=== PATIENT | male | born 1995 | race Caucasian/White ===

== ENCOUNTER → 2019-10-05 15:45 | Outpatient (BNVA) | payer MEDICAID, SELFPAY | PROVIDERS: Family Provider Internal Medicine; PCP Internal Medicine; Visit Provider Podiatrist Foot & Ankle Surgery | DX: S99.022A Salter-Harris Type II physeal fracture of left calcaneus, initial encounter for closed fracture (principal); X58.XXXA Exposure to other specified factors, initial encounter | CPT/HCPCS: 73630 ==

== ENCOUNTER 2019-10-05 16:05 | Outpatient (CLI) | payer MEDICAID, SELFPAY | END 2019-10-05 16:06 | disposition home or self-care (01) | LOC: SPT 16:05 | PROVIDERS: Family Provider Internal Medicine; PCP Internal Medicine; Visit Provider Podiatrist Foot & Ankle Surgery | DX: Z46.89 Encounter for fitting and adjustment of other specified devices (principal); S92.315D Nondisplaced fracture of first metatarsal bone, left foot, subsequent encounter for fracture with routine healing; X58.XXXD Exposure to other specified factors, subsequent encounter | CPT/HCPCS: 97760; L3031 ==

== ENCOUNTER → 2019-11-03 09:03 | Outpatient (BNVA) | payer MEDICAID, SELFPAY | PROVIDERS: Family Provider Internal Medicine; PCP Internal Medicine; Visit Provider Podiatrist Foot & Ankle Surgery | DX: S92.415D Nondisplaced fracture of proximal phalanx of left great toe, subsequent encounter for fracture with routine healing (principal); W22.01XD Walked into wall, subsequent encounter | CPT/HCPCS: 73630 ==

== ENCOUNTER 2020-02-05 12:52 | Emergency (ER) | payer MEDICAID, SELFPAY ==
[2020-02-05 12:52] VITALS: BP 95/61; PULSE 96; RESP 18; TEMP 35.8; O2SAT 88; BMI 16.7
[2020-02-05 13:04] VITALS: O2SAT 93
--- NOTE | 2020-02-05 13:14 | XRR_ITS ---
PROCEDURE INFORMATION: Exam: XR Chest, 1 View Exam date and time: 02/05/2020 1:16 PM Age: 24 years old Clinical indication: Other: Seizure; Additional info: Seziure TECHNIQUE: Imaging protocol: XR of the chest Views: 1 view. COMPARISON: CR Clavicle LEFT [id number] 02/14/2013 10:04 AM FINDINGS: Lungs: Unremarkable. No consolidation. Pleural space: Unremarkable. No pleural effusion. No pneumothorax. Heart/Mediastinum: Unremarkable. No cardiomegaly. Bones/joints: Unremarkable. Electronic stimulator is present left side extending into the cervical spine XR/XR chest 1V portable [id number] IMPRESSION: No acute findings. Left side electronic stimulator
--- NOTE | 2020-02-05 13:15 | ECG_ITS ---
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 Measurements Intervals [place] Rate: 77 P: 72 [place]: 143 QRS: 79 QRSD: 92 T: 260 QT: 380 QTc: 432 Interpretive Statements SINUS RHYTHM ST DEVIATION AND MODERATE T-WAVE ABNORMALITY, CONSIDER INFERIOR ISCHEMIA [-0.1+ mV T WAVE IN II/aVF] No previous ECG available for comparison Electronically Signed On 02-05-2020 19:14:23 CDT by Samira Marx M.D. [id number]
--- NOTE | 2020-02-05 13:15 | ED_ITS ---
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 Patient has frequent seizures and his last seizure was about 3 days ago according to his mother. After lunch today the patient was noticed to look pale and then had a seizure that appeared to be toonic. The patient has se veral different types of seizures including tonic, tonic-clonic. He has not been sick recently, no recent fevers, no sick contacts. Mother says this is typical for his seizures. Patient has developmental delay and is unable to give me much of the history, he is also postictal MD complaint: seizure Onset (ago): minute(s) Duration of episode: 30 -: second(s) Witnessed: Yes - by Bystander Trauma: No Seizure History: Yes Place: Outdoors Possible Precipitating Event: none Associated symptoms: Reports no associated symptoms Treatments prior to arrival: none Review of Systems General: Reports: ROS unobtainable due to medical condition [facility] ED PFSH: Medical History Diarrhea Hematuria Hypothyroidism Leukemia Mental disability Neurocognitive disorder Seizure disorder Physical Exam Const: COMMON NORMALS: no acute distress, average body habitus, patient oriented x3, no limitations, healthy appearing and well nourished GENERAL APPEARANCE: lethargic (Postictal) ORIENTATION/CONSCIOUSNESS: Yes lethargic (Postictal) HENMT: COMMON NORMALS: normocephalic, atraumatic and moist oral mucous membranes HEAD & SCALP: normocephalic and atraumatic Eye: COMMON NORMALS: Equal, round and reactive pupils present, EOMs intact bilaterally, conjunctivae normal and no scleral icterus CONJUNCTIVA: Yes conjunctivae normal PUPIL: Yes Equal, round and reactive pupils present Neck/C-Spine: COMMON NORMALS: no meningeal signs and no JVD Resp: COMMON NORMALS: normal respiratory effort, No retractions, No use of accessory muscles, clear to auscultation bilaterally and percussion normal AUSCULTATION: clear to auscultation bilaterally PERCUSSION: percussion normal Cardio: COMMON NORMALS: no JVD, regular rate, regular rhythm, S1 normal heart sound present, S2 normal heart sound present, No gallops present (Cardio), No clicks present (Cardio), No murmurs present (Cardio), No rub (Cardio) and Peripheral pulses 2+ throughout RATE: regular rate RHYTHM: regular rhythm HEART SOUNDS: S1 normal heart sound present and S2 normal heart sound present PERIPHERAL PULSES: Peripheral pulses 2+ throughout GI: COMMON NORMALS: Normal to inspection, nondistended, normoactive bowel sounds present, Soft to palpation, non-tender, No hepatosplenomegaly present, no masses and no bruits PALPATION: Yes Soft to palpation and Yes No hepatosplenomegaly present Extremity: COMMON NORMALS: normal to inspection, full ROM, capillary refill normal, no calf tenderness and no pedal edema Neuro: COMMON NORMALS: patient oriented x3 SENSORIUM/ORIENTATION: Yes lethargic (Postictal) MENINGEAL SIGNS: Yes no meningeal signs Skin: COMMON NORMALS: no rashes or lesions noted, no wounds, turgor normal, no jaundice, no petechiae and no mottling GENERAL SKIN EXAM: no rashes or lesions noted and turgor normal Course Reevaluation(s): Reevaluation #1: Discussed his lab and imaging findings with his mom, no acute findings. Mother would rather not would not catheterize him to obtain a urine sample but he has not given us a urine sample. She is comfortable taking him home. We will write a prescription for a few doses of oral potassium and he will follow-up with his primary care provider to have a repeat potassium done in a few days. Other than that she is to continue what she is doing for him, and she voiced understanding and is in agreement with the plan. Time: 14:55 Vital Signs: Vital signs: Vital Signs Temperature 96.5 F L 02/05/20 12:52 Pulse Rate 92 02/05/20 15:16 Respiratory Rate 12 02/05/20 15:16 Blood Pressure 98/59 02/05/20 15:16 Pulse Oximetry 90 02/05/20 15:16 MDM - Seizure MDM Narrative: Medical decision making narrative: 24-year-old gentleman with a history of seizure disorder who had a seizure today. He has frequent seizures and this is not uncommon for him. No sign no illness prior to or after the seizure. Evaluation in the emergency department was positive only for hypokalemia. He was given oral replacement for his hypokalemia and discharged home with the same. He is to follow-up with his primary care provider. Medical Records: Attestation: I reviewed the patient's medical records. Lab Data: Attestation: I reviewed the patient's lab results. Labs: Lab Results 02/05/20 02/05/20 Range/Units 13:05 13:05 WBC 12.4 H (4.0-10.0) 10^3/ uL RBC 4.06 L (4.1-5.3) 10^6/u L Hgb 13.1 (11.7-16.6) g/dL Hct 41.4 L (42.0-52.0) % MCV 102.0 H (80-94) fL MCH 32.3 (28.0-34.0) pg MCHC 31.6 (30.0-36.0) g/dL RDW 18.2 H (12.1-15.1) % Plt Count 469 H (130-400) 10^3/c mm MPV 8.7 (7.4-10.4) fL Neut % (Auto) 54.5 % Lymph % (Auto) 30.1 % [place] % (Auto) 9.8 % Eos % (Auto) 2.5 % Baso % (Auto) 0.6 % Neut # (Auto) 6.72 (1.8-7.7) 10^3/u L Lymph # (Auto) 3.7 (0.8-4.8) 10^3/u L [place] # (Auto) 1.2 H (0.2-0.9) 10^3/u L Eos # (Auto) 0.3 (0.0-0.8) 10^3/u L Baso # (Auto) 0.1 (0.0-0.1) 10^3/u L Nucleated RBC % (a uto) 0 % Nucleated RBCs # 0.0 /100WBC Sodium 141 (136-145) mmol/L Potassium 2.9 L (3.5-5.1) mmol/L Chloride 105 (98-107) mmol/L Carbon Dioxide 24 (22-29) mmol/L Anion Gap 14.9 (5-19) BUN 14 (6-20) mg/dL Creatinine 0.5 L (0.7-1.2) mg/dL GFR Calculation 202.6 H (90-130) mL/min Glucose 170 H (65-115) mg/dL Calculated Osmolal ity 296 H (285-295) mOsm/k g Calcium 8.8 (8.5-10.5) mg/dL Total Bilirubin 0.2 (0.15-1.2) mg/dL AST 10 (0-40) U/L ALT 11 (0-41) U/L Alkaline Phosphata se 52 (40-130) IU/L C-Reactive Protein 1.3 (0.0-4.9) mg/L Total Protein 4.9 L (6.6-8.7) g/dL Albumin 3.0 L (3.5-5.2) g/dL Globulin 1.9 (1.3-4.6) g/dL Imaging Data^: CXR: Attestation: I personally reviewed and interpreted this imaging study as follows: Radiologist's impression: [address] [address] XRay Report Signed Patient: Rm Baum #: [id number] : 1995Acct#:[id number] Age/Sex: 24 MADM Date: 02/05/20 Loc: [facility]/Bed: Attending Dr: Ordering Provider/Ordering MD: Tico Anderson MD, [facility] [place] Date of Service: 02/05/20 Procedure(s): XR chest 1V portable [id number] Accession Number(s): [id number] Report Number: [id number] PROCEDURE INFORMATION: Exam: XR Chest, 1 View Exam date and time: 02/05/2020 1:16 PM Age: 24 years old Clinical indication: Other: Seizure; Additional info: Seziure TECHNIQUE: Imaging protocol: XR of the chest Views: 1 view. COMPARISON: CR Clavicle LEFT [id number] 02/14/2013 10:04 AM FINDINGS: Lungs: Unremarkable. No consolidation. Pleural space: Unremarkable. No pleural effusion. No pneumothorax. Heart/Mediastinum: Unremarkable. No cardiomegaly. Bones/joints: Unremarkable. Electronic stimulator is present left side extending into the cervical spine XR/XR chest 1V portable [id number] IMPRESSION: No acute findings. Left side electronic stimulator Dictated By:Vahe Watts Signed By:Brennan Watts Date/Time:02/05/201447 DD/ 45 EKG Data^: EKG 1: Attestation: I personally reviewed and interpreted this EKG as follows: EKG interpretation date: 02/05/20 EKG interpretation time: 13:18 Prior EKG tracings: available for review Interpretation: Normal sinus rhythm. Heart rate [address] depression in V3 V4 V5 and downsloping of the ST segment in 2 3 aVF Discharge Plan Discharge Patient Disposition: Home Clinical Impression: Acute hypokalemia Epileptic seizure Qualifiers: Epilepsy type: other Intractability: not intractable Status epilepticus: without status epilepticus Qualified Code(s): G40.802 - Other epilepsy, not intractable, without status epilepticus Condition: Stable Prescriptions: New potassium chloride 40 mEq/15 mL liquid 20 meq PO DAILY 5 Days Qty: 40 RF: 0 Continued Banzel 400 mg tablet 1,200 mg PO BID RF: 0 divalproex [Depakote Sprinkles] 125 mg capsule, delayed rel sprinkle See Rx Instructions .ROUTE .COMPLEX RF: 0 diazepam 10 mg tablet 10 mg PO BID PRN (Reason: Anxiety) RF: 0 levothyroxine [Synthroid] 50 mcg tablet 50 mcg PO DAILY RF: 0 acetaminophen [Children's Tylenol] 160 mg/5 mL suspension 500 mg PO QID PRN (Reason: Pain) RF: 0 Discharge Orders: Discharge Order (Routine); Ordered 02/05/20 Ordered By: Tico Anderson Referrals: Jon Grider DO [Primary Care Provider] - 1-3 days Discharge Diet: Usual diet Discharge Activity: Increase activity as tolerated Patient Instructions: Hypokalemia (ED), Recurrent Seizures Adult (ED) Activity Restrictions/Additional Instructions: Return for any new or worsening symptoms. Follow-up with his primary care provider within 3 days. He will need to have his potassium levels checked again in a few days, so have his primary care provider check it. 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
[2020-02-05 13:21] LABS: Basophils # 0.1 10^3/uL (0.0-0.1); Basophils % 0.6 %; Eosinophils # 0.3 10^3/uL (0.0-0.8); Eosinophils % 2.5 %; Hematocrit 41.4 % (42.0-52.0); Hemoglobin 13.1 g/dL (11.7-16.6); Lymphocytes # 3.7 10^3/uL (0.8-4.8); Lymphocytes % 30.1 %; Mean Corpuscular HGB Conc 31.6 g/dL (30.0-36.0); Mean Corpuscular Hemoglobin 32.3 pg (28.0-34.0); Mean Platelet Volume 8.7 fL (7.4-10.4); Monocytes # 1.2 10^3/uL (0.2-0.9); Monocytes % 9.8 %; Neutrophils # 6.72 10^3/uL (1.8-7.7); Neutrophils % 54.5 %; Nucleated Red Blood Cells % 0 %; Platelet Count 469 10^3/cmm (130-400); Red Blood Count 4.06 10^6/uL (4.1-5.3); Red Cell Distribution Width 18.2 % (12.1-15.1); White Blood Count 12.4 10^3/uL (4.0-10.0)
[2020-02-05 13:27] VITALS: BP 100/61; PULSE 79; RESP 20; O2SAT 97
[2020-02-05 13:43] LABS: Alanine Aminotransferase 11 U/L (0-41); Alkaline Phosphatase 52 IU/L (40-130); Anion Gap 14.9 (5-19); Aspartate Amino Transferase 10 U/L (0-40); Blood Urea Nitrogen 14 mg/dL (6-20); C Reactive Protein 1.3 mg/L (0.0-4.9); Calcium 8.8 mg/dL (8.5-10.5); Carbon Dioxide 24 mmol/L (22-29); Chloride 105 mmol/L (98-107); Globulin 1.9 g/dL (1.3-4.6); Glomerular Filtration Rate 202.6 mL/min (90-130); Glucose 170 mg/dL (65-115); Osmolality Calculated 296 mOsm/kg (285-295); Sodium 141 mmol/L (136-145); Total Bilirubin 0.2 mg/dL (0.15-1.2); Total Protein 4.9 g/dL (6.6-8.7)
[2020-02-05 13:49] LABS: Potassium 2.9 mmol/L (3.5-5.1)
[2020-02-05] MEDS: potassium chloride oral liq 20 mEq/15 mL UDC 40 MEQ PO (13:59)
[2020-02-05] MEDS: ondansetron 2 mg/ML SDV 2 mL 4 MG IVP (14:06)
[2020-02-05 15:16] VITALS: BP 98/59; PULSE 92; RESP 12; O2SAT 90
== END 2020-02-05 15:18 | disposition home or self-care (01) ==
PROVIDERS: Emergency Provider Family Medicine; PCP Internal Medicine
DX: G40.802 Other epilepsy, not intractable, without status epilepticus (principal); E87.6 Hypokalemia; Z85.6 Personal history of leukemia
CPT/HCPCS: 12345; 71045; 80053; 85025; 86140; 93005; 96374; 96375; 99284; J2405

== ENCOUNTER 2020-05-01 14:22 | Outpatient (CLI) | payer MEDICAID, SELFPAY ==
[2020-05-01 15:10] LABS: Basophils # 0.1 10^3/uL (0.0-0.1); Eosinophils # 0.2 10^3/uL (0.0-0.8); Eosinophils % 3.8 %; Hematocrit 37.9 % (42.0-52.0); Hemoglobin 11.9 g/dL (11.7-16.6); Lymphocytes # 1.8 10^3/uL (0.8-4.8); Lymphocytes % 33.3 %; Mean Corpuscular HGB Conc 31.4 g/dL (30.0-36.0); Mean Corpuscular Hemoglobin 30.3 pg (28.0-34.0); Mean Corpuscular Volume 96.4 fL (80-94); Mean Platelet Volume 8.9 fL (7.4-10.4); Monocytes # 0.6 10^3/uL (0.2-0.9); Monocytes % 10.9 %; Neutrophils # 2.65 10^3/uL (1.8-7.7); Neutrophils % 50.4 %; Nucleated Red Blood Cells % 0 %; Platelet Count 368 10^3/cmm (130-400); Red Blood Count 3.93 10^6/uL (4.1-5.3); Red Cell Distribution Width 13.2 % (12.1-15.1); White Blood Count 5.3 10^3/uL (4.0-10.0)
== END 2020-05-01 14:23 | disposition home or self-care (01) ==
PROVIDERS: PCP Internal Medicine; Visit Provider Internal Medicine Hematology & Oncology
DX: D64.9 Anemia, unspecified (principal)
CPT/HCPCS: 36415; 85025

== ENCOUNTER 2020-05-02 05:53 | Outpatient (CLI) | payer MEDICAID, SELFPAY ==
--- NOTE | 2020-05-02 15:24 | ONC CON_ITS ---
Dr. Carrillo New Patient Note Patient: Rm Baum Unit #: [id number]: 1995 Dicatated By: Mckinley Carrillo M.D.Date of Visit: May 02, 2020 Onc MED New Patient/Consult Referring Physician: Dr. Jon Grider M.D. History of Present Illness: Mr. 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 History of recurrent urinary tract infection due to cystitis, history of iron deficiency anemia, took oral iron ferrous gluconate for couple of years till July 25, 2016,, history of hemorrhoids., History of hypothyroidism, history of delayed gastric emptying, EGD done on December 18, 2016 ,Lab work-up done in the D[facility] office on February 18, 2020 showed white blood count 6.2 hemoglobin 12.2 g normal being 13.2 to 17.1 g, hematocrit 37.4 platelets 408,000 serum protein electrophoresis shows hypogammaglobulinemia hemoglobin 0.7 normal being 0.8-1.7 urine protein electrophoresis was normal, Iron saturation 24%, iron 114, TIBC 481, ferritin 6, folate 20.3, B12 639, reticulocyte count 1.3%, T4 1.1, TSH 2.01. Patient is a poor historian and appears anxious also as per mother he had episode of seizure today, since then he is somewhat emotional. So all the history available was from his mother, she denies patient having blood in stool or hemoptysis or hematemesis or jaundice or hematuria or gum bleed. But complaining of weight loss since October 2019, as per mother patient had fever and generalized weakness, at that time COVID-19 was suspected, as patient was noncooperative for testing so it was not done rather placed in quarantine for 14 days, subsequently developed sore throat, strep throat was suspected but not tested treated with oral antibiotic empirically, since then patient has been losing some weight and thinning of hair but no recurrent infections, no night sweats, no recurrent fever, no peripheral lymphadenopathy, no abdominal fullness. Past Medical History: Mr. Baum's medical history consists of history of c-diff, history of leukemia, hypothyroidism, mental retardation, and siezure disorder. Past Surgical History: Mr. Baum'gael surgical history is unremarkable. Medications: Aloe Vera Juice 15 mL Liquid Oral daily, Banzel 3 Tablet (of 400 mg) Oral b.i.d., CBD oil (4.25 mL) Oil b.i.d., Cholecalciferol 1 Tablet (of 10 mcg ) Oral daily, Depakote Sprinkles Capsule Sprinkle Oral Take as Directed, Diastat Pediatric Gel (jelly) Rectal PRN, diazePAM 1 Tablet (of 10 mg) Oral PRN, Ferrous Gluconate 1 Tablet (of 239 (27 fe) mg) Oral daily, Levothyroxine Sodium 1 Tablet (of 50 mcg) Oral daily, patel de fallon 1 mL Liquid daily, Vitamin C 1 Capsule (of 500 mg) Oral daily Allergies: No Known Allergies. Social History: Mr. Baum is single. Mr. Baum has never smoked. He has no history of drinking. Family History: There is no documented family history. Review Of Symptoms: Review of Systems is not available for this patient. Vital Signs: Performed on May 02, 2020 14:24: 0, 15.50 (LOW), 1.61 sq.m, 70 in, 95 % (LOW), 103 /min (HIGH), 16 /min, 109/74 mm(hg), 97.4 F (LOW), and 108 lbs (HIGH). Performance Status: 3 - Capable of only limited self-care, confined to bed or chair more than 50% of waking hours. (ECOG) Physical Examination: ENMT - Denies mouth sores or jaundice, Respiratory - Denies shortness of breath or wheezing, Cardiovascular - Denies palpitation, Abdomen - Denies abdominal pain or fullness, Extremities - Visible trace edema. Lab/Imaging: Test performed on May 01, 2020 14:55 WBC 5.3 10 3/uL RBC 3.93 10 6/uL HGB 11.9 g/dL HCT 37.9 % MCV 96.4 fL MCH 30.3 pg MCHC 31.4 g/dL RDW 13.2 % Platelet Count 368 10 3/cmm MPV 8.9 fL Neutrophils 2.65 10 3/uL Lymphocytes 1.8 10 3/uL Monocytes 0.6 10 3/uL Eosinophils 0.2 10 3/uL Basophils 0.1 10 3/uL Neutrophil % 50.4 % Lymphocyte % 33.3 % Monocyte % 10.9 % Eosinophil % 3.8 % Basophils % 1.0 % NRBC % 0 % Impression: Iron deficiency anemia etiology, etiology unclear could be due to iron malabsorption or chronic blood loss, patient was treated with oral iron for couple of years ago July 2016 with resolution of anemia. History of chronic cystitis with hematuria Hypothyroidism Hypogonadism in the past treated with testosterone supplement History of hemorrhoids History of ALL, diagnosed in December 1995, treated at [facility] for 2-1/2 years including induction and maintenance therapy, now in remission History of gastric emptying Seizure disorder Mental retardation Plan: Discussed with patient's mother regarding his labs white blood count 5.3 hemoglobin 11.9 g normal being 11.7-16.60, hematocrit 37.9 platelets 368,000 with a normal differential Clinically, patient appears in no acute distress, alert but somewhat anxious. His lab work-up done in his PM[facility] office on April 19, 2020 showed ferritin was 6, normal being 38-380, TIBC 481, iron saturation 24%, iron 114, B12 629, folate 20.3 with a normal TSH, and his lab work-up is consistent with iron deficiency, as mentioned earlier patient has taken oral iron in the past without any problems so we will consider trial of oral iron once a day for 1 month and then repeat his CBC and iron studies if it shows improvement then continue to monitor otherwise may consider parenteral iron and also suggest EGD and colonoscopy to rule out GI source of blood loss and cystoscopy to rule out hemorrhagic cystitis. Return to clinic in 1 month with CBC and iron studies Signed By: Mckinley Carrillo M.D. <<Signature on File>>
== END 2020-05-02 05:54 | disposition home or self-care (01) ==
LOC: ONCMED 05:55
PROVIDERS: PCP Internal Medicine; Visit Provider Internal Medicine Hematology & Oncology
DX: D50.9 Iron deficiency anemia, unspecified (principal); C91.01 Acute lymphoblastic leukemia, in remission; N30.21 Other chronic cystitis with hematuria; E03.9 Hypothyroidism, unspecified; E29.1 Testicular hypofunction; F79 Unspecified intellectual disabilities; G40.909 Epilepsy, unspecified, not intractable, without status epilepticus
CPT/HCPCS: 99203; G0463

== ENCOUNTER 2020-07-16 13:28 | Outpatient (CLI) | payer MEDICARE, MEDICAID, SELFPAY ==
[2020-07-16 14:33] LABS: Basophils % 0.7 %; Eosinophils # 0.3 10^3/uL (0.0-0.8); Eosinophils % 5.4 %; Hematocrit 40.7 % (42.0-52.0); Hemoglobin 12.7 g/dL (11.7-16.6); Lymphocytes # 1.8 10^3/uL (0.8-4.8); Lymphocytes % 32.6 %; Mean Corpuscular HGB Conc 31.2 g/dL (30.0-36.0); Mean Corpuscular Hemoglobin 30.5 pg (28.0-34.0); Mean Corpuscular Volume 97.8 fL (80-94); Monocytes # 0.5 10^3/uL (0.2-0.9); Monocytes % 9.2 %; Neutrophils # 2.85 10^3/uL (1.8-7.7); Neutrophils % 51.2 %; Nucleated Red Blood Cells % 0 %; Platelet Count 311 10^3/cmm (130-400); Red Blood Count 4.16 10^6/uL (4.1-5.3); Red Cell Distribution Width 16.2 % (12.1-15.1); White Blood Count 5.6 10^3/uL (4.0-10.0)
[2020-07-16 14:51] LABS: Ferritin 28 ng/mL (30-400); Iron 99 ug/dL (59-158); Percent Saturation 23.9 % (20-50); Total Iron Binding Capacity 413 mcg/dl; Unsaturated Iron Binding 314 ug/dL (112-347)
== END 2020-07-16 13:29 | disposition home or self-care (01) ==
LOC: ONCMED 13:31
PROVIDERS: PCP Internal Medicine; Visit Provider Internal Medicine Hematology & Oncology
DX: D64.9 Anemia, unspecified (principal)
CPT/HCPCS: 36415; 82728; 83540; 83550; 85025

== ENCOUNTER 2020-07-17 05:48 | Outpatient (CLI) | payer MEDICARE, MEDICAID, SELFPAY ==
--- NOTE | 2020-07-17 15:33 | ONC FU_ITS ---
Dr. Carrillo follow up note Patient: Rm Baum Unit #: [id number]: 1995 Dicatated By: Mckinley Carrillo M.D.Date of Visit:Jul 17, 2020 Onc Med Follow-up/Prog Note History of Present Illness: Mr. 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 History of recurrent urinary tract infection due to cystitis, history of iron deficiency anemia, took oral iron ferrous gluconate for couple of years till July 25, 2016,, history of hemorrhoids., History of hypothyroidism, history of delayed gastric emptying, EGD done on December 18, 2016, Patient is a poor historian and appears anxious also as per mother he had episode of seizure today, since then he is somewhat emotional. So all the history available was from his mother, she denies patient having blood in stool or hemoptysis or hematemesis or jaundice or hematuria or gum bleed. But complaining of weight loss since October 2019, as per mother patient had fever and generalized weakness, at that time COVID-19 was suspected, as patient was noncooperative for testing so it was not done rather placed in quarantine for 14 days, subsequently developed sore throat, strep throat was suspected but not tested treated with oral antibiotic empirically, since then patient has been losing some weight and thinning of hair but no recurrent infections, no night sweats, no recurrent fever, no peripheral lymphadenopathy, no abdominal fullness. Came for follow-up, denies any specific complaints, no fever chills, no nausea or vomiting, no diarrhea constipation, no melena or hematochezia, tolerating oral iron well Medications: Aloe Vera Juice 15 mL Liquid Oral daily, Banzel 3 Tablet (of 400 mg) Oral b.i.d., CBD oil (4.25 mL) Oil b.i.d., Cholecalciferol 1 Tablet (of 10 mcg ) Oral daily, Depakote Sprinkles Capsule Sprinkle Oral Take as Directed, Diastat Pediatric Gel (jelly) Rectal PRN, diazePAM 1 Tablet (of 10 mg) Oral PRN, Ferrous Gluconate 1 Tablet (of 239 (27 fe) mg) Oral daily, Levothyroxine Sodium 1 Tablet (of 50 mcg) Oral daily, patel de fallon 1 mL Liquid daily, Vitamin C 1 Capsule (of 500 mg) Oral daily Allergies: No Known Allergies. Review of Systems: Review of Systems is not available for this patient. Vital Signs: Performed on Jul 17, 2020 14:11 Height - 70.00 in Weight - 110.6 lbs (HIGH) BSA - 1.62 sq.m BMI - 15.87 (LOW) Temperature - 97.3 F (LOW) Pulse - 81 /min Respiration - 18 /min BP - 119/71 mm(hg) O2 Sat - 95 % (LOW) Pain - 0 Fatigue - 0 Performance Status: 0 - Fully active, able to carry on all predisease activities without restrictions. (ECOG) Physical Examination: ENMT - No mouth sores, no thrush, no jaundice, Respiratory - Lungs are clear to auscultation, Cardiovascular - Regular rate and rhythm of heart, Abdomen - Soft, bowel sounds present, Extremities - No visible edema. Lab/Imaging: Test performed on May 01, 2020 14:55 WBC 5.3 10 3/uL RBC 3.93 10 6/uL HGB 11.9 g/dL HCT 37.9 % MCV 96.4 fL MCH 30.3 pg MCHC 31.4 g/dL RDW 13.2 % Platelet Count 368 10 3/cmm MPV 8.9 fL Neutrophils 2.65 10 3/uL Lymphocytes 1.8 10 3/uL Monocytes 0.6 10 3/uL Eosinophils 0.2 10 3/uL Basophils 0.1 10 3/uL Neutrophil % 50.4 % Lymphocyte % 33.3 % Monocyte % 10.9 % Eosinophil % 3.8 % Basophils % 1.0 % NRBC % 0 % Impression: Iron deficiency anemia etiology, etiology unclear could be due to iron malabsorption or chronic blood loss, patient was treated with oral iron for couple of years ago July 2016 with resolution of anemia. History of chronic cystitis with hematuria Hypothyroidism Hypogonadism in the past treated with testosterone supplement History of hemorrhoids History of ALL, diagnosed in December 1995, treated at [facility] for 2-1/2 years including induction and maintenance therapy, now in remission History of gastric emptying Seizure disorder Mental retardation Plan: Discussed with patient and his mother regarding his labs white blood count 5.6 hemoglobin 12.7 g compared to 11.9 g on May 01, 2020 hematocrit 40.7 platelets 311,000 iron saturation 23.9 ferritin 28 iron 99 TIBC 413 Clinically, patient doing well, his follow-up CBC shows hemoglobin is improving and now in normal range, iron studies shows iron stores within normal range but on the lower side, patient is tolerating oral iron well. We will continue with same and return to clinic in 2 months with CBC and iron studies Signed By: Mckinley Carrillo M.D. <<Signature on File>>
== END 2020-07-17 05:49 | disposition home or self-care (01) ==
LOC: ONCMED 05:50
PROVIDERS: PCP Internal Medicine; Visit Provider Internal Medicine Hematology & Oncology
DX: D50.9 Iron deficiency anemia, unspecified (principal); N30.21 Other chronic cystitis with hematuria; E03.9 Hypothyroidism, unspecified; E29.1 Testicular hypofunction; F79 Unspecified intellectual disabilities; Z85.6 Personal history of leukemia
CPT/HCPCS: 99214

== ENCOUNTER 2020-07-26 12:30 | Outpatient (RCR) | payer MEDICARE, MEDICAID, SELFPAY | END 2020-08-08 23:59 | disposition home or self-care (01) | LOC: SPT 12:30 | PROVIDERS: PCP Internal Medicine; Referring Provider Internal Medicine; Visit Provider Internal Medicine | DX: R26.89 Other abnormalities of gait and mobility (principal) | CPT/HCPCS: 97162 ==

== ENCOUNTER 2020-08-09 06:00 | Outpatient (RCR) | payer MEDICARE, MEDICAID, SELFPAY | END 2020-09-07 23:59 | disposition home or self-care (01) | LOC: SPT 06:00 | PROVIDERS: PCP Internal Medicine; Referring Provider Internal Medicine; Visit Provider Internal Medicine | DX: R26.89 Other abnormalities of gait and mobility (principal) | CPT/HCPCS: 97110 ==

== ENCOUNTER 2020-09-08 06:00 | Outpatient (RCR) | payer MEDICARE, MEDICAID, SELFPAY | END 2020-10-08 23:59 | disposition home or self-care (01) | LOC: SPT 06:00 | PROVIDERS: PCP Internal Medicine; Referring Provider Internal Medicine; Visit Provider Internal Medicine | DX: R26.89 Other abnormalities of gait and mobility (principal) | CPT/HCPCS: 97110 ==

== ENCOUNTER 2020-09-24 13:25 | Outpatient (CLI) | payer MEDICARE, MEDICAID, SELFPAY ==
[2020-09-24 14:09] LABS: Basophils # 0.1 10^3/uL (0.0-0.1); Basophils % 0.8 %; Eosinophils # 0.2 10^3/uL (0.0-0.8); Eosinophils % 3.5 %; Hemoglobin 12.9 g/dL (11.7-16.6); Lymphocytes # 1.8 10^3/uL (0.8-4.8); Lymphocytes % 30.4 %; Mean Corpuscular HGB Conc 31.5 g/dL (30.0-36.0); Mean Corpuscular Hemoglobin 31.8 pg (28.0-34.0); Mean Platelet Volume 8.9 fL (7.4-10.4); Monocytes # 0.6 10^3/uL (0.2-0.9); Monocytes % 9.8 %; Neutrophils # 3.17 10^3/uL (1.8-7.7); Neutrophils % 53.6 %; Nucleated Red Blood Cells % 0 %; Platelet Count 307 10^3/cmm (130-400); Red Blood Count 4.06 10^6/uL (4.1-5.3); Red Cell Distribution Width 13.4 % (12.1-15.1); White Blood Count 5.9 10^3/uL (4.0-10.0)
[2020-09-24 14:23] LABS: Ferritin 32 ng/mL (30-400); Iron 109 ug/dL (59-158); Percent Saturation 27.1 % (20-50); Total Iron Binding Capacity 401 mcg/dl; Unsaturated Iron Binding 292 ug/dL (112-347)
[2020-09-24 15:11] LABS: Folate Level 19.1 ng/mL (4.5-32.2)
== END 2020-09-24 13:26 | disposition home or self-care (01) ==
PROVIDERS: PCP Internal Medicine; Visit Provider Internal Medicine Hematology & Oncology
DX: D50.9 Iron deficiency anemia, unspecified (principal)
CPT/HCPCS: 82728; 82746; 83540; 83550; 85025

== ENCOUNTER 2020-09-25 05:55 | Outpatient (CLI) | payer MEDICARE, MEDICAID, SELFPAY ==
--- NOTE | 2020-09-25 15:46 | ONC FU_ITS ---
Dr. Carrillo follow up note Patient: Rm Baum Unit #: [id number]: 1995 Dicatated By: Mckinley Carrillo M.D.Date of Visit:September 25, 2020 Onc Med Follow-up/Prog Note History of Present Illness: Mr. 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 History of recurrent urinary tract infection due to cystitis, history of iron deficiency anemia, took oral iron ferrous gluconate for couple of years till July 25, 2016,, history of hemorrhoids., History of hypothyroidism, history of delayed gastric emptying, EGD done on December 18, 2016, Patient is a poor historian and appears anxious also as per mother he had episode of seizure today, since then he is somewhat emotional. So all the history available was from his mother, she denies patient having blood in stool or hemoptysis or hematemesis or jaundice or hematuria or gum bleed. But complaining of weight loss since October 2019, as per mother patient had fever and generalized weakness, at that time COVID-19 was suspected, as patient was noncooperative for testing so it was not done rather placed in quarantine for 14 days, subsequently developed sore throat, strep throat was suspected but not tested treated with oral antibiotic empirically, since then patient has been losing some weight and thinning of hair but no recurrent infections, no night sweats, no recurrent fever, no peripheral lymphadenopathy, no abdominal fullness. Came for follow-up, denies any specific complaints, no fever chills, no nausea or vomiting, no diarrhea or constipation, no melena or hematochezia, tolerating oral iron well but off and on noncompliant, Medications: Aloe Vera Juice 15 mL Liquid Oral daily, Banzel 3 Tablet (of 400 mg) Oral b.i.d., CBD oil (4.25 mL) Oil b.i.d., Cholecalciferol 1 Tablet (of 10 mcg ) Oral daily, Depakote Sprinkles Capsule Sprinkle Oral Take as Directed, Diastat Pediatric Gel (jelly) Rectal PRN, diazePAM 1 Tablet (of 10 mg) Oral PRN, Ferrous Gluconate 1 Tablet (of 239 (27 fe) mg) Oral daily, Levothyroxine Sodium 1 Tablet (of 50 mcg) Oral daily, patel de fallon 1 mL Liquid daily, Vitamin C 1 Capsule (of 500 mg) Oral daily Allergies: No Known Allergies. Review of Systems: Review of Systems is not available for this patient. Vital Signs: Performed on September 25, 2020 14:08 Height - 70.00 in Weight - 113.0 lbs (HIGH) BSA - 1.64 sq.m BMI - 16.21 (LOW) Temperature - 97.0 F (LOW) Pulse - 93 /min Respiration - 18 /min BP - 104/67 mm(hg) O2 Sat - 98 % Pain - 0 Performance Status: 0 - Fully active, able to carry on all predisease activities without restrictions. (ECOG) Physical Examination: ENMT - No mouth sores, no thrush, no jaundice, Respiratory - Lungs are clear to auscultation, Cardiovascular - Regular rate and rhythm of heart, Abdomen - Soft, bowel sounds present, Extremities - No visible edema. Lab/Imaging: Test performed on May 01, 2020 14:55 WBC 5.3 10 3/uL RBC 3.93 10 6/uL HGB 11.9 g/dL HCT 37.9 % MCV 96.4 fL MCH 30.3 pg MCHC 31.4 g/dL RDW 13.2 % Platelet Count 368 10 3/cmm MPV 8.9 fL Neutrophils 2.65 10 3/uL Lymphocytes 1.8 10 3/uL Monocytes 0.6 10 3/uL Eosinophils 0.2 10 3/uL Basophils 0.1 10 3/uL Neutrophil % 50.4 % Lymphocyte % 33.3 % Monocyte % 10.9 % Eosinophil % 3.8 % Basophils % 1.0 % NRBC % 0 % Impression: Iron deficiency anemia etiology, etiology unclear could be due to iron malabsorption or chronic blood loss, patient was treated with oral iron for couple of years ago July 2016 with resolution of anemia. History of chronic cystitis with hematuria Hypothyroidism Hypogonadism in the past treated with testosterone supplement History of hemorrhoids History of ALL, diagnosed in December 1995, treated at [facility] for 2-1/2 years including induction and maintenance therapy, now in remission History of gastric emptying Seizure disorder Mental retardation Plan: Discussed with patient regarding his labs white blood count 5.9 hemoglobin 12.9 hematocrit 41 platelets 307,000 MCV 101 iron saturation 27.1% ferritin 32 compared to 28 previously iron 109, TIBC 401 Clinically, patient doing well with no new signs symptoms, tolerating oral iron well, follow-up lab work-up shows CBC within normal range, iron studies stable and within normal range but on the lower side, patient and his mother was advised to be compliant and continue take oral iron and return to clinic in 3 months with CBC and iron studies Signed By: Mckinley Carrillo M.D. <<Signature on File>>
== END 2020-09-25 05:56 | disposition home or self-care (01) ==
LOC: ONCMED 05:57
PROVIDERS: PCP Internal Medicine; Visit Provider Internal Medicine Hematology & Oncology
DX: D50.0 Iron deficiency anemia secondary to blood loss (chronic) (principal); K90.9 Intestinal malabsorption, unspecified; E03.9 Hypothyroidism, unspecified; E29.1 Testicular hypofunction; K64.9 Unspecified hemorrhoids; N30.21 Other chronic cystitis with hematuria; G40.909 Epilepsy, unspecified, not intractable, without status epilepticus; F79 Unspecified intellectual disabilities; Z85.72 Personal history of non-Hodgkin lymphomas; Z79.899 Other long term (current) drug therapy
CPT/HCPCS: 99214

== ENCOUNTER 2020-10-09 06:00 | Outpatient (RCR) | payer MEDICARE, MEDICAID, SELFPAY | END 2020-11-07 23:59 | disposition home or self-care (01) | LOC: SPT 06:00 | PROVIDERS: PCP Internal Medicine; Referring Provider Internal Medicine; Visit Provider Internal Medicine | DX: R26.89 Other abnormalities of gait and mobility (principal) | CPT/HCPCS: 97110 ==

== ENCOUNTER 2020-11-08 06:00 | Outpatient (RCR) | payer MEDICARE, MEDICAID, SELFPAY | END 2020-12-08 23:59 | disposition home or self-care (01) | LOC: SPT 06:00 | PROVIDERS: PCP Internal Medicine; Referring Provider Internal Medicine; Visit Provider Internal Medicine | DX: R26.89 Other abnormalities of gait and mobility (principal) | CPT/HCPCS: 97110 ==

== ENCOUNTER 2020-12-09 06:00 | Outpatient (RCR) | payer MEDICARE, MEDICAID, SELFPAY | END 2021-01-08 23:59 | disposition home or self-care (01) | LOC: SPT 06:00 | PROVIDERS: PCP Internal Medicine; Referring Provider Internal Medicine; Visit Provider Internal Medicine | DX: R26.89 Other abnormalities of gait and mobility (principal) | CPT/HCPCS: 97110 ==

== ENCOUNTER 2020-12-31 14:43 | Outpatient (CLI) | payer MEDICARE, MEDICAID, SELFPAY ==
[2020-12-31 15:46] LABS: Basophils % 0.4 %; Eosinophils # 0.2 10^3/uL (0.0-0.8); Eosinophils % 2.4 %; Hemoglobin 13.5 g/dL (11.7-16.6); Lymphocytes # 1.8 10^3/uL (0.8-4.8); Lymphocytes % 27.3 %; Mean Corpuscular HGB Conc 32.1 g/dL (30.0-36.0); Mean Corpuscular Hemoglobin 32.5 pg (28.0-34.0); Mean Corpuscular Volume 101.2 fl (80-94); Mean Platelet Volume 8.6 fL (7.4-10.4); Monocytes # 0.6 10^3/uL (0.2-0.9); Monocytes % 8.3 %; Neutrophils % 59.4 %; Nucleated Red Blood Cells % 0 %; Platelet Count 376 10^3/cmm (130-400); Red Blood Count 4.15 10^6/uL (4.1-5.3); Red Cell Distribution Width 13.3 % (12.1-15.1); White Blood Count 6.7 10^3/uL (4.0-10.0)
[2020-12-31 16:02] LABS: Ferritin 34 ng/mL (30-400); Iron 96 ug/dL (59-158); Percent Saturation 22.7 % (20-50); Total Iron Binding Capacity 422 mcg/dl; Unsaturated Iron Binding 326 ug/dL (112-347)
[2020-12-31 16:11] LABS: Thyroid Stimulating Hormone 3.13 uIU/mL (0.27-4.20)
[2021-01-02 06:03] LABS: T3 Total 115 ng/dL (76-181)
== END 2020-12-31 14:44 | disposition home or self-care (01) ==
PROVIDERS: PCP Internal Medicine; Visit Provider Internal Medicine Hematology & Oncology
DX: C91.01 Acute lymphoblastic leukemia, in remission (principal); Z79.899 Other long term (current) drug therapy; Z79.890 Hormone replacement therapy
CPT/HCPCS: 36415; 82728; 83540; 83550; 84443; 84480; 85025

== ENCOUNTER 2021-01-03 05:45 | Outpatient (CLI) | payer MEDICARE, MEDICAID, SELFPAY ==
--- NOTE | 2021-01-06 19:27 | ONC FU_ITS ---
Dr. Carrillo follow up note Patient: Rm Baum Unit #: [id number]: 1995 Dicatated By: Mckinley Carrillo M.D.Date of Visit:Jan 03, 2021 Onc Med Follow-up/Prog Note History of Present Illness: Mr. 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 History of recurrent urinary tract infection due to cystitis, history of iron deficiency anemia, took oral iron ferrous gluconate for couple of years till July 25, 2016,, history of hemorrhoids., History of hypothyroidism, history of delayed gastric emptying, EGD done on December 18, 2016, Patient is a poor historian and appears anxious also as per mother he had episode of seizure today, since then he is somewhat emotional. So all the history available was from his mother, she denies patient having blood in stool or hemoptysis or hematemesis or jaundice or hematuria or gum bleed. But complaining of weight loss since October 2019, as per mother patient had fever and generalized weakness, at that time COVID-19 was suspected, as patient was noncooperative for testing so it was not done rather placed in quarantine for 14 days, subsequently developed sore throat, strep throat was suspected but not tested treated with oral antibiotic empirically, since then patient has been losing some weight and thinning of hair but no recurrent infections, no night sweats, no recurrent fever, no peripheral lymphadenopathy, no abdominal fullness. Came for follow-up, denies any specific complaints, no fever chills, no nausea or vomiting, no diarrhea or constipation, no hemoptysis or hematemesis, patient is on oral iron, tolerating well, as per mother in the distant past GI evaluation was recommended for iron deficiency anemia at that time he underwent EGD but colonoscopy was not done because of issues with preparation in mentally challenged young man Medications: Aloe Vera Juice 15 mL Liquid Oral daily, Banzel 3 Tablet (of 400 mg) Oral b.i.d., CBD oil (4.25 mL) Oil b.i.d., Cholecalciferol 1 Tablet (of 10 mcg ) Oral daily, Depakote Sprinkles Capsule Sprinkle Oral Take as Directed, Diastat Pediatric Gel (jelly) Rectal PRN, diazePAM 1 Tablet (of 10 mg) Oral PRN, Ferrous Gluconate 1 Tablet (of 239 (27 fe) mg) Oral daily, Levothyroxine Sodium 1 Tablet (of 50 mcg) Oral daily, patel de fallon 1 mL Liquid daily, Vitamin C 1 Capsule (of 500 mg) Oral daily Allergies: No Known Allergies. Review of Systems: Review of Systems is not available for this patient. Vital Signs: Performed on Jan 03, 2021 14:25 Height - 70.00 in Weight - 115 lbs (HIGH) BSA - 1.65 sq.m BMI - 16.50 (LOW) Temperature - 97.0 F (LOW) Pulse - 98 /min Respiration - 18 /min BP - 104/71 mm(hg) O2 Sat - 98 % Pain - 0 Fatigue - 0 Performance Status: 0 - Fully active, able to carry on all predisease activities without restrictions. (ECOG) Physical Examination: ENMT - No mouth sores, no thrush, no jaundice, Respiratory - Lungs are clear to auscultation, Cardiovascular - Regular rate and rhythm of heart, Abdomen - Soft, bowel sounds present, Extremities - No visible edema. Lab/Imaging: Most recent lab results are not available for this patient. Impression: Iron deficiency anemia etiology, etiology unclear could be due to iron malabsorption or chronic blood loss, patient was treated with oral iron for couple of years ago July 2016 with resolution of anemia. History of chronic cystitis with hematuria Hypothyroidism Hypogonadism in the past treated with testosterone supplement History of hemorrhoids History of ALL, diagnosed in December 1995, treated at [facility] for 2-1/2 years including induction and maintenance therapy, now in remission History of gastric emptying Seizure disorder Mental retardation Plan: Discussed with patient and his mother regarding his labs white blood count 6.7 hemoglobin 13.5 hematocrit 42 platelets 376,000 with a normal differential iron studies shows iron saturation 22.7% ferritin 34 iron 96 TIBC 422 Clinically, patient doing well with no new signs symptoms, at this point, will hold his oral iron for 1 month and he will return to clinic in a month with CBC and iron studies if it shows drop in his hemoglobin or iron stores, will consider GI work-up to rule out chronic blood loss from GI tract due to possible GI pathology Return to clinic in 1 month with CBC and iron studies Signed By: Mckinley Carrillo M.D. <<Signature on File>>
== END 2021-01-03 05:46 | disposition home or self-care (01) ==
LOC: ONCMED 05:46
PROVIDERS: PCP Internal Medicine; Visit Provider Internal Medicine Hematology & Oncology
DX: C91.01 Acute lymphoblastic leukemia, in remission (principal); D50.9 Iron deficiency anemia, unspecified; F79 Unspecified intellectual disabilities; Z79.899 Other long term (current) drug therapy; Z79.890 Hormone replacement therapy
CPT/HCPCS: 99214

== ENCOUNTER 2021-01-09 06:00 | Outpatient (RCR) | payer MEDICARE, MEDICAID, SELFPAY | END 2021-02-07 23:59 | disposition home or self-care (01) | LOC: SPT 06:00 | PROVIDERS: PCP Internal Medicine; Referring Provider Internal Medicine; Visit Provider Internal Medicine | DX: R26.89 Other abnormalities of gait and mobility (principal) | CPT/HCPCS: 97110 ==

== ENCOUNTER 2021-01-11 00:31 | Emergency (ER) | payer MEDICARE, MEDICAID, SELFPAY ==
[2021-01-11 00:43] VITALS: BP 109/74; PULSE 96; RESP 16; TEMP 36.4; O2SAT 92; BMI 16.5
--- NOTE | 2021-01-11 01:07 | W.ED.GENADLT ---
HPI - General Adult General: Chief complaint: Nausea/Vomiting/Diarrhea Stated complaint: n/v Time Seen by Provider: 01/11/21 00:35 History of Present Illness: HPI narrative: Patient is a 25-year-old male who comes to the ED with nausea and vomiting. Patient has a past medical history of acute lymphoblastic leukemia back in 1995, recurrent UTIs, hypothyroidism and iron deficiency anemia. Mother is present with patient and is providing history due to patient's baseline limited verbal ability and mental disability. She states that 2 days ago patient had outpatient surgery to replace the battery on vagus nerve stimulator. Patient was given first dose of clindamycin this morning and at around 5 PM this evening patient started having emesis. He then had multiple episodes of emesis throughout the evening. Was unable to keep any p.o. food or fluids down. She called the specialist they see in [place], [place] and who placed the vagus nerve stimulator and they thought patient might be reacting to clindamycin and to not give any more doses. Reports having a dry cough that started after multiple episodes of emesis today. Denies any fever, wheezing, shortness of breath, lip or tongue swelling, abdominal pain, bladder or bowel symptoms. Associated symptoms: Reports nausea and vomiting; Deny chest pain, dyspnea, headache(s), rash or palpitations Review of Systems Const: Denies: fever(s), chills or fatigue Eyes: Denies: change in vision or eye discomfort ENMT: Denies: throat pain, odynophagia, nasal discharge or nasal congestion Card: Denies: chest pain, palpitations, edema, swelling of feet/ankles, dyspnea on exertion or orthopnea Resp: Reports: non-productive cough; Denies: dyspnea or productive cough GI: Reports: nausea and vomiting; Denies: abdominal pain, diarrhea, constipation or hematochezia : Denies: flank pain, difficulty urinating, dysuria or hematuria Musc: Denies: neck pain, back pain or extremity swelling Skin/Breast: Denies: rash or new lesions Neuro: Denies: headache(s), numbness in extremities or weakness in extremities PFS ED PFSH: Medical History Diarrhea Hematuria Hypothyroidism Leukemia Mental disability Neurocognitive disorder Seizure disorder Physical Exam Const: COMMON NORMALS: no acute distress and alert EXAM LIMITATIONS: other limitations ( limited verbal ability and mental disability. ) GENERAL APPEARANCE: cooperative and comfortable HENMT: COMMON NORMALS: normocephalic HEAD & SCALP: normocephalic MOUTH: Normal oral and palatal mucosa present THROAT: posterior oropharynx normal and uvula midline Neck/C-Spine: COMMON NORMALS: supple GENERAL: Yes normal visual inspection Resp: COMMON NORMALS: normal respiratory effort, No retractions, No use of accessory muscles and clear to auscultation bilaterally AUSCULTATION: clear to auscultation bilaterally Cardio: COMMON NORMALS: regular rate, regular rhythm, S1 normal heart sound present, S2 normal heart sound present, No gallops present (Cardio), No clicks present (Cardio), No murmurs present (Cardio) and Peripheral pulses 2+ throughout RATE: regular rate RHYTHM: regular rhythm HEART SOUNDS: S1 normal heart sound present and S2 normal heart sound present PERIPHERAL PULSES: Peripheral pulses 2+ throughout GI: COMMON NORMALS: Normal to inspection, nondistended, normoactive bowel sounds present, Soft to palpation, non-tender and no masses PALPATION: Yes Soft to palpation : COMMON NORMALS: Yes no CVA tenderness BLADDER/KIDNEY EXAM: Yes no CVA tenderness Back/Pelvis: COMMON NORMALS: no CVA tenderness Extremity: COMMON NORMALS: normal to inspection Neuro: SENSORIUM/ORIENTATION: Yes alert Skin: GENERAL SKIN EXAM: dry skin Course Reevaluation(s): Reevaluation #1: After patient received IV fluids and Reglan his symptoms improved. He has not had any episodes of emesis while here in the ED and is tolerating p.o. fluids well. He is also more alert and active. Mother is says patient appears to be doing better and is comfortable to be discharged home and will follow up with PCP in 3 to 5 days for reevaluation. Time: 02:53 Vital Signs: Vital signs: Vital Signs Temperature 97.6 F 01/11/21 00:43 Pulse Rate 96 01/11/21 00:43 Respiratory Rate 16 01/11/21 00:43 Blood Pressure 109/74 01/11/21 00:43 Pulse Oximetry 92 01/11/21 00:43 MDM - General Adult MDM Narrative: Medical decision making narrative: Patient is a 25-year-old male comes to the ED with acute onset of nausea and vomiting. Patient has minimal verbal skills and has some mental disability and mother provided history. patient took first dose of clindamycin today. Mother contact the prescribing physician and they wanted patient to stop taking the clindamycin thanks he is potentially having a adverse reaction to medication. Here in the ED patient is lying comfortably on exam bed appears to be in no acute distress or pain. Vitals are stable. He has had no vomiting upon arrival to the ED. Lungs clear to auscultation bilaterally and patient has no abdominal tenderness upon light and deep palpation. CBC and CMP were unremarkable. Lipase was elevated at 162. Chest x-ray shows no acute findings. Patient was given IV fluids, Benadryl, Solu-Medrol and Reglan. Upon reevaluation he was more alert and active and he is tolerating p.o. fluids well. He has had no episodes of emesis. Mother was told to stop the clindamycin and to contact the prescribing doctor tomorrow morning to see if they want to put patient on a different antibiotic. Patient diagnosed with adverse drug reaction to clindamycin and elevated lipase enzymes. Mother told to follow-up with medical provider in 3 to 5 days for reevaluation and to have lipase rechecked. Return to ED precautions given. Patient's mother understood and agreed with plan. Lab Data: Attestation: I reviewed the patient's lab results. Labs: Lab Results 01/11/21 01/11/21 01/11/21 Range/Units 01:07 01:22 01:55 WBC 8.5 (4.0-10.0) 10^3/ uL RBC 4.02 L (4.1-5.3) 10^6/u L Hgb 12.9 (11.7-16.6) g/dL Hct 42.4 (42.0-52.0) % MCV 105.5 H (80-94) fl MCH 32.1 (28.0-34.0) pg MCHC 30.4 (30.0-36.0) g/dL RDW 13.0 (12.1-15.1) % Plt Count 343 (130-400) 10^3/c mm MPV 8.6 (7.4-10.4) fL Neut % (Auto) 81.8 % Lymph % (Auto) 9.1 % Sumner % (Auto) 6.5 % Eos % (Auto) 0.0 % Baso % (Auto) 0.5 % Neut # (Auto) 6.91 (1.8-7.7) 10^3/u L Lymph # (Auto) 0.8 (0.8-4.8) 10^3/u L Sumner # (Auto) 0.6 (0.2-0.9) 10^3/u L Eos # (Auto) 0.0 (0.0-0.8) 10^3/u L Baso # (Auto) 0.0 (0.0-0.1) 10^3/u L Nucleated RBC % (a uto) 0 % Nucleated RBCs # 0.0 /100WBC Sodium Cancelled Cancelled Potassium Cancelled Cancelled Chloride Cancelled Cancelled Carbon Dioxide Cancelled Cancelled Anion Gap Cancelled Cancelled BUN Cancelled Cancelled Creatinine Cancelled Cancelled GFR Calculation Cancelled Cancelled Glucose Cancelled Cancelled Calculated Osmolal ity Cancelled Cancelled Calcium Cancelled Cancelled Total Bilirubin Cancelled Cancelled AST Cancelled Cancelled ALT Cancelled Cancelled Alkaline Phosphata se Cancelled Cancelled Total Protein Cancelled Cancelled Albumin Cancelled Cancelled Globulin Cancelled Cancelled Lipase Cancelled Cancelled 01/11/21 Range/Units 02:20 WBC (4.0-10.0) 10^3/ uL RBC (4.1-5.3) 10^6/u L Hgb (11.7-16.6) g/dL Hct (42.0-52.0) % MCV (80-94) fl MCH (28.0-34.0) pg MCHC (30.0-36.0) g/dL RDW (12.1-15.1) % Plt Count (130-400) 10^3/c mm MPV (7.4-10.4) fL Neut % (Auto) % Lymph % (Auto) % Sumner % (Auto) % Eos % (Auto) % Baso % (Auto) % Neut # (Auto) (1.8-7.7) 10^3/u L Lymph # (Auto) (0.8-4.8) 10^3/u L Sumner # (Auto) (0.2-0.9) 10^3/u L Eos # (Auto) (0.0-0.8) 10^3/u L Baso # (Auto) (0.0-0.1) 10^3/u L Nucleated RBC % (a uto) % Nucleated RBCs # /100WBC Sodium 139 Potassium 4.1 Chloride 99 Carbon Dioxide 28 Anion Gap 16.1 BUN 9 Creatinine 0.3 L GFR Calculation 362.4 H Glucose 131 H Calculated Osmolal ity 288 Calcium 9.4 Total Bilirubin 0.2 AST 17 ALT 51 H Alkaline Phosphata se 110 Total Protein 6.4 L Albumin 3.8 Globulin 2.6 Lipase 162 H Imaging Data^: CXR: Attestation: I personally reviewed and interpreted this imaging study as follows: My impression: Chest x-ray showed no acute findings. Discharge Plan Discharge Patient Disposition: Home Clinical Impression: Adverse reaction to antibiotic, Elevated lipase Condition: Stable Prescriptions: New promethazine 6.25 mg/5 mL syrup 25 mg PO TID PRN (Reason: nausea and vomiting) Qty: 473 RF: 0 No Action Banzel 400 mg tablet 1,200 mg PO BID RF: 0 divalproex [Depakote Sprinkles] 125 mg capsule, delayed rel sprinkle See Rx Instructions .ROUTE .COMPLEX RF: 0 diazepam 10 mg tablet 10 mg PO BID PRN (Reason: Anxiety) RF: 0 levothyroxine [Synthroid] 50 mcg tablet 50 mcg PO DAILY RF: 0 acetaminophen [Children's Tylenol] 160 mg/5 mL suspension 500 mg PO QID PRN (Reason: Pain) RF: 0 Discharge Orders: Discharge ED (Routine); Ordered 01/11/21 Ordered By: Gilbert Pretty Referrals: Jon Grider, [Primary Care Provider] - Discharge Diet: Advance as tolerated and Clear Liquid Discharge Activity: Resume usual activity Patient Instructions: Adverse Drug Reaction (ED) Activity Restrictions/Additional Instructions: Follow-up with PCP in approximately 3 to 5 days for reevaluation and to have a lipase lab rechecked. Stop the clindamycin medication. Contact the prescribing doctor tomorrow morning to let them know if they would like patient on any other antibiotic at this time. Continue a clear liquid diet for the next 12 hours then advance as tolerated. Take medications as prescribed. return to the ER or your medical provider if condition worsens. Please read and understand discharge instructions. Thank you for choosing [facility] for your healthcare needs today. Please realize this is an emergency room and that we are providing you with a medical screening exam and this may not be complete and all inclusive of all the testing and or work up that you may need to determine your ailment or severity of your illness. It is very important that you follow up as instructed or that you return to the Emergency Department should you have concerns or if your condition changes or worsens in any way. Coding Level of Care Code ED Bilingual Speech Language Pathologist for [place] Fwd Exam Comprehensive
[2021-01-11 01:31] LABS: Basophils % 0.5 %; Hematocrit 42.4 % (42.0-52.0); Hemoglobin 12.9 g/dL (11.7-16.6); Lymphocytes # 0.8 10^3/uL (0.8-4.8); Lymphocytes % 9.1 %; Mean Corpuscular HGB Conc 30.4 g/dL (30.0-36.0); Mean Corpuscular Hemoglobin 32.1 pg (28.0-34.0); Mean Corpuscular Volume 105.5 fl (80-94); Mean Platelet Volume 8.6 fL (7.4-10.4); Monocytes # 0.6 10^3/uL (0.2-0.9); Monocytes % 6.5 %; Neutrophils # 6.91 10^3/uL (1.8-7.7); Neutrophils % 81.8 %; Nucleated Red Blood Cells % 0 %; Platelet Count 343 10^3/cmm (130-400); Red Blood Count 4.02 10^6/uL (4.1-5.3); White Blood Count 8.5 10^3/uL (4.0-10.0)
--- NOTE | 2021-01-11 01:31 | XRR_ITS ---
PROCEDURE INFORMATION: Exam: XR Chest Exam date and time: 01/11/2021 1:31 AM Age: 25 years old Clinical indication: Prior surgery; Surgery type: Vagus nerve stimulator; Patient HX: Emesis with cough. Possible aspiration. ; Additional info: N/v and has cough-aspiration risk TECHNIQUE: Imaging protocol: XR of the chest. Views: 1 view. COMPARISON: CR XR chest 1V portable [id number] 2020-02-05 13:44 FINDINGS: Tubes, catheters and devices: Unchanged vagus nerve stimulator implanted on the left side. Lungs: Minimal right middle lobe peribronchial opacities. Pleural spaces: Unremarkable. No pleural effusion. No pneumothorax. Heart/Mediastinum: Unremarkable. No cardiomegaly. Bones/joints: Unremarkable. XR/XR chest 1V portable [id number] IMPRESSION: Minimal right middle lobe peribronchial opacities.
[2021-01-11] MEDS: metoclopramide 5 mg/mL SDV 2 mL 10 MG IVP (02:10)
[2021-01-11] MEDS: diphenhydrAMINE 50 mg/mL SDV 1mL 25 MG IVP (02:10)
[2021-01-11] MEDS: sodium chloride 0.9% 500 ML 999 ML IV (02:11)
[2021-01-11 02:42] LABS: Alanine Aminotransferase 51 U/L (0-41); Albumin Level 3.8 g/dL (3.5-5.2); Alkaline Phosphatase 110 IU/L (40-130); Anion Gap 16.1 (5-19); Aspartate Amino Transferase 17 U/L (0-40); Blood Urea Nitrogen 9 mg/dL (6-20); Calcium 9.4 mg/dL (8.5-10.5); Carbon Dioxide 28 mmol/L (22-29); Chloride 99 mmol/L (98-107); Globulin 2.6 g/dL (1.3-4.6); Glomerular Filtration Rate 362.4 mL/min (90-130); Glucose 131 mg/dL (65-115); Lipase 162 U/L (13-60); Osmolality Calculated 288 mOsm/kg (285-295); Potassium 4.1 mmol/L (3.5-5.1); Sodium 139 mmol/L (136-145); Total Bilirubin 0.2 mg/dL (0.15-1.2); Total Protein 6.4 g/dL (6.6-8.7)
[2021-01-11 03:13] VITALS: PULSE 90; RESP 18; O2SAT 99
== END 2021-01-11 03:14 | disposition home or self-care (01) ==
PROVIDERS: Emergency Provider Physician Assistant; PCP Internal Medicine
DX: T88.7XXA Unspecified adverse effect of drug or medicament, initial encounter (principal); T36.95XA Adverse effect of unspecified systemic antibiotic, initial encounter; E78.41 Elevated Lipoprotein(a); Z85.6 Personal history of leukemia
CPT/HCPCS: 36415; 71045; 80053; 83690; 85025; 87040; 96361; 96374; 96375; 99284; J1200; J2765; J2930; J7040

== ENCOUNTER 2021-01-24 11:24 | Outpatient (CLI) | payer MEDICARE, MEDICAID, SELFPAY ==
[2021-01-24 13:38] LABS: Basophils % 0.6 %; Eosinophils # 0.2 10^3/uL (0.0-0.8); Eosinophils % 3.2 %; Hematocrit 41.1 % (42.0-52.0); Lymphocytes # 1.8 10^3/uL (0.8-4.8); Lymphocytes % 24.8 %; Mean Corpuscular HGB Conc 31.6 g/dL (30.0-36.0); Mean Corpuscular Hemoglobin 32.1 pg (28.0-34.0); Mean Corpuscular Volume 101.5 fl (80-94); Mean Platelet Volume 8.4 fL (7.4-10.4); Monocytes # 0.5 10^3/uL (0.2-0.9); Monocytes % 7.6 %; Neutrophils # 4.46 10^3/uL (1.8-7.7); Neutrophils % 62.8 %; Nucleated Red Blood Cells % 0 %; Platelet Count 336 10^3/cmm (130-400); Red Blood Count 4.05 10^6/uL (4.1-5.3); Red Cell Distribution Width 13.6 % (12.1-15.1); White Blood Count 7.1 10^3/uL (4.0-10.0)
[2021-01-24 13:52] LABS: Alanine Aminotransferase 14 U/L (0-41); Albumin Level 4.1 g/dL (3.5-5.2); Alkaline Phosphatase 73 IU/L (40-130); Anion Gap 12.9 (5-19); Aspartate Amino Transferase 9 U/L (0-40); Blood Urea Nitrogen 12 mg/dL (6-20); Calcium 9.3 mg/dL (8.5-10.5); Carbon Dioxide 30 mmol/L (22-29); Chloride 101 mmol/L (98-107); Globulin 2.6 g/dL (1.3-4.6); Glucose 80 mg/dL (65-115); Osmolality Calculated 289 mOsm/kg (285-295); Potassium 3.9 mmol/L (3.5-5.1); Sodium 140 mmol/L (136-145); Total Bilirubin 0.2 mg/dL (0.15-1.2); Total Protein 6.7 g/dL (6.6-8.7)
== END 2021-01-24 11:25 | disposition home or self-care (01) ==
PROVIDERS: PCP Internal Medicine; Visit Provider Internal Medicine Hematology & Oncology
DX: D64.9 Anemia, unspecified (principal)
CPT/HCPCS: 36415; 80053; 85025

== ENCOUNTER 2021-01-28 05:46 | Outpatient (CLI) | payer MEDICARE, MEDICAID, SELFPAY ==
[2021-01-28 14:34] LABS: Ferritin 39 ng/mL (30-400); Iron 90 ug/dL (59-158); Lipase 64 U/L (13-60); Percent Saturation 21.9 % (20-50); Total Iron Binding Capacity 410 mcg/dl; Unsaturated Iron Binding 320 ug/dL (112-347)
--- NOTE | 2021-01-28 14:53 | ONC FU_ITS ---
Dr. Carrillo follow up note Patient: Rm Baum Unit #: [id number]: 1995 Dicatated By: Mckinley Carrillo M.D.Date of Visit:Jan 28, 2021 Onc Med Follow-up/Prog Note History of Present Illness: Mr. 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 History of recurrent urinary tract infection due to cystitis, history of iron deficiency anemia, took oral iron ferrous gluconate for couple of years till July 25, 2016,, history of hemorrhoids., History of hypothyroidism, history of delayed gastric emptying, EGD done on December 18, 2016, Patient is a poor historian and appears anxious also as per mother he had episode of seizure today, since then he is somewhat emotional. So all the history available was from his mother, she denies patient having blood in stool or hemoptysis or hematemesis or jaundice or hematuria or gum bleed. But complaining of weight loss since October 2019, as per mother patient had fever and generalized weakness, at that time COVID-19 was suspected, as patient was noncooperative for testing so it was not done rather placed in quarantine for 14 days, subsequently developed sore throat, strep throat was suspected but not tested treated with oral antibiotic empirically, since then patient has been losing some weight and thinning of hair but no recurrent infections, no night sweats, no recurrent fever, no peripheral lymphadenopathy, no abdominal fullness. Came for follow-up, denies any specific complaints except episode of nausea vomiting, which he developed while he was admitted to hospital for vagus nerve stimulator battery replacement on January 08, 2021, as per mother at that time his lipase was elevated and she called office to repeat lipase level with follow-up labs. Patient denies any melena or hematochezia denies any hemoptysis hematemesis denies any jaundice denies any shortness of breath or palpitation, patient is off oral iron Medications: Aloe Vera Juice 15 mL Liquid Oral daily, Banzel 3 Tablet (of 400 mg) Oral b.i.d., CBD oil (4.25 mL) Oil b.i.d., Cholecalciferol 1 Tablet (of 10 mcg ) Oral daily, Depakote Sprinkles Capsule Sprinkle Oral Take as Directed, Diastat Pediatric Gel (jelly) Rectal PRN, diazePAM 1 Tablet (of 10 mg) Oral PRN, Ferrous Gluconate 1 Tablet (of 239 (27 fe) mg) Oral daily, Levothyroxine Sodium 1 Tablet (of 50 mcg) Oral daily, patel de fallon 1 mL Liquid daily, Vitamin C 1 Capsule (of 500 mg) Oral daily Allergies: No Known Allergies. Review of Systems: Review of Systems is not available for this patient. Vital Signs: Performed on Jan 28, 2021 14:31 Height - 70.00 in Weight - 113 lbs (LOW) BSA - 1.64 sq.m BMI - 16.21 (LOW) Temperature - 97.2 F (LOW) Pulse - 96 /min Respiration - 18 /min BP - 103/77 mm(hg) O2 Sat - 98 % Pain - 0 Fatigue - 0 Performance Status: 0 - Fully active, able to carry on all predisease activities without restrictions. (ECOG) Physical Examination: ENMT - No mouth sores, no thrush, no jaundice, Respiratory - Lungs are clear to auscultation, Cardiovascular - Regular rate and rhythm of heart, Abdomen - Soft, bowel sounds present, Extremities - No visible edema. Lab/Imaging: Most recent lab results are not available for this patient. Impression: Iron deficiency anemia etiology, etiology unclear could be due to iron malabsorption or chronic blood loss, patient was treated with oral iron for couple of years ago July 2016 with resolution of anemia. History of chronic cystitis with hematuria Hypothyroidism Hypogonadism in the past treated with testosterone supplement History of hemorrhoids History of ALL, diagnosed in December 1995, treated at [facility] for 2-1/2 years including induction and maintenance therapy, now in remission History of gastric emptying Seizure disorder Mental retardation Plan: Discussed with patient and his mother regarding his labs white blood count 7.1 hemoglobin 13.0 medical 41.1 platelets 336,000 CMP within normal limits, his iron studies and lipase level is pending Clinically, patient is doing well with no new signs symptom as follow-up labs shows hemoglobin normal range his iron studies is pending, will continue to monitor he will return to clinic in 3 months with CBC and iron studies, If it shows drop in iron stores or progressive anemia, will consider GI work-up to rule out chronic GI blood loss causing iron deficiency anemia Episode of nausea vomiting during recent hospitalization for valgus nerve stimulator battery replacement, which has resolved now Signed By: Mckinley Carrillo M.D. <<Signature on File>>
== END 2021-01-28 05:47 | disposition home or self-care (01) ==
LOC: ONCMED 05:47
PROVIDERS: PCP Internal Medicine; Visit Provider Internal Medicine Hematology & Oncology
DX: D50.9 Iron deficiency anemia, unspecified (principal); N30.21 Other chronic cystitis with hematuria; E03.9 Hypothyroidism, unspecified; E29.1 Testicular hypofunction; K64.9 Unspecified hemorrhoids; Z85.6 Personal history of leukemia; K30 Functional dyspepsia; G40.909 Epilepsy, unspecified, not intractable, without status epilepticus; F79 Unspecified intellectual disabilities; Z79.899 Other long term (current) drug therapy
CPT/HCPCS: 36415; 82728; 83540; 83550; 83690; 99214

== ENCOUNTER 2021-02-08 06:00 | Outpatient (RCR) | payer MEDICARE, MEDICAID, SELFPAY | END 2021-03-10 23:59 | disposition home or self-care (01) | LOC: SPT 06:00 | PROVIDERS: PCP Internal Medicine; Visit Provider Internal Medicine | DX: R26.89 Other abnormalities of gait and mobility (principal) | CPT/HCPCS: 97110; 97530 ==

== ENCOUNTER 2021-03-11 06:00 | Outpatient (RCR) | payer MEDICARE, MEDICAID, SELFPAY | END 2021-04-09 23:59 | disposition home or self-care (01) | LOC: SPT 06:00 | PROVIDERS: PCP Internal Medicine; Visit Provider Internal Medicine | DX: R26.89 Other abnormalities of gait and mobility (principal) | CPT/HCPCS: 97530 ==

== ENCOUNTER 2021-04-08 19:19 | Inpatient (IN) | payer MEDICARE, MEDICAID, SELFPAY ==
[2021-04-08 19:42] VITALS: BP 106/71; PULSE 93; RESP 18; O2SAT 91; BMI 16.7
--- NOTE | 2021-04-08 20:21 | CTR_ITS ---
PROCEDURE INFORMATION: Exam: CT Abdomen And Pelvis With Contrast Exam date and time: 04/08/2021 8:21 PM Age: 26 years old Clinical indication: Nausea and vomiting; Prior surgery TECHNIQUE: Imaging protocol: Computed tomography of the abdomen and pelvis with contrast. Radiation optimization: All CT scans at this facility use at least one of these dose optimization techniques: automated exposure control; mA and/or kV adjustment per patient size (includes targeted exams where dose is matched to clinical indication); or iterative reconstruction. Contrast material: OMNI 300; Contrast volume: 75 ml; Contrast route: INTRAVENOUS (IV); COMPARISON: US [facility] [place] Testicular 10/22/2018 11:51 AM RADIATION DOSE METRICS: Total DLP (mGy-cm): 1003.62 FINDINGS: Liver: Hepatic steatosis. Periportal edema likely related hydration status. Gallbladder and bile ducts: Gallbladder is somewhat prominent, ultrasound could further evaluate this. Pancreas: Normal. No ductal dilation. Spleen: Normal. No splenomegaly. Adrenal glands: Normal. No mass. Kidneys and ureters: Normal. No hydronephrosis. Stomach and bowel: Prominent fluid in stomach with some wall thickening suspected of the small bowel and colon suggestive of a gastro enterocolitis. Appendix: No evidence of appendicitis. Intraperitoneal space: Unremarkable. No free air. No significant fluid collection. Vasculature: Unremarkable. No abdominal aortic aneurysm. Lymph nodes: Unremarkable. No enlarged lymph nodes. Urinary bladder: Unremarkable as visualized. Reproductive: Unremarkable as visualized. Bones/joints: Unremarkable. No acute fracture. Soft tissues: Unremarkable. CT/CT abdomen pelvis w con* [id number] IMPRESSION: 1. Prominent fluid in stomach with some wall thickening suspected of the small bowel and colon suggestive of a gastro enterocolitis. 2. Hepatic steatosis. 3. Periportal edema likely related hydration status. 4. Gallbladder is somewhat prominent, ultrasound could further evaluate this. Radiation Dose CTDIVOL = (mGy): DLP = 1003.62 (mGy-cm)
--- NOTE | 2021-04-08 20:21 | XRR_ITS ---
PROCEDURE INFORMATION: Exam: XR Chest Exam date and time: 04/08/2021 8:21 PM Age: 26 years old Clinical indication: Other: Vomiting TECHNIQUE: Imaging protocol: XR of the chest. Views: 1 view. COMPARISON: CR XR chest 1V portable [id number] 01/11/2021 1:53 AM FINDINGS: Tubes, catheters and devices: Left-sided phrenic nerve stimulator. Lungs: Unremarkable. No consolidation. Pleural spaces: Unremarkable. No pleural effusion. No pneumothorax. Heart/Mediastinum: Unremarkable. No cardiomegaly. Bones/joints: Unremarkable. XR/XR chest 1V portable [id number] IMPRESSION: No acute disease. Radiation Dose CTDIVOL = (mGy): DLP = (mGy-cm)
--- NOTE | 2021-04-08 20:21 | CTR_ITS ---
PROCEDURE INFORMATION: Exam: CT Head Without Contrast Exam date and time: 04/08/2021 8:21 PM Age: 26 years old Clinical indication: Condition or disease; Convulsions or seizures; Additional info: Eval for vomiting TECHNIQUE: Imaging protocol: Computed tomography of the head without contrast. Radiation optimization: All CT scans at this facility use at least one of these dose optimization techniques: automated exposure control; mA and/or kV adjustment per patient size (includes targeted exams where dose is matched to clinical indication); or iterative reconstruction. COMPARISON: No relevant prior studies available. RADIATION DOSE METRICS: Total DLP (mGy-cm): 923.25 FINDINGS: Brain: No acute infarct or hemorrhage. 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 Cerebral ventricles: No ventriculomegaly. Paranasal sinuses: Mild right frontal and right sphenoid sinus mucosal thickening. Mastoid air cells: Visualized mastoid air cells are clear. Bones/joints: No calvarial or skull base fracture. Soft tissues: Unremarkable. CT/CT head wo con* [id number] IMPRESSION: 1. No acute infarct or hemorrhage. 2. No calvarial or skull base fracture. 3. Mild right frontal and right sphenoid sinus mucosal thickening. 4. 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 Radiation Dose CTDIVOL = (mGy): DLP = 923.25 (mGy-cm)
--- NOTE | 2021-04-08 20:32 | W.ED.GENADLT ---
HPI - General Adult General: Chief complaint: ER Hold Stated complaint: Vomiting Time Seen by Provider: 04/08/21 20:12 History of Present Illness: HPI narrative: Patient is a 26-year-old male with history of intellectual disability, seizure on vagus nerve stimulator, ALL in remission followed by Dr. Carrillo presenting to the emergency room with nausea vomiting since 3 PM. Per family, patient has had significant vomiting since 3 PM. No other focal complaints including chest pain, shortness breath, palpitation, lightheadedness, headache, abdominal complaints, diarrhea or complaints. Per family, patient has an interest electrical disability and sometimes is harder to verbalize complaints. Patient is currently not on chemotherapy. Onset: 3pm Duration: 4 hrs ago Location:home Severity: moderate Review of Systems Narrative: Constitutional: No fever, no chills. HEENT: No vision changes CV: No chest pain, no palpitations PULM: no cough, no dyspnea. GI: No abdominal pain, +V/-D. : No dysuria MSKEL: No muscle pain SKIN: No new rashes, no lesions. NEURO: No headache, no focal weakness. HEME: No visible bruises PSYCH: Normal mood PFSH ED PFSH: Medical History (Updated 04/15/21 @ 08:24 by Antione Mike MD) Anemia Diarrhea Enterocolitis Hematuria Hypothyroidism Leukemia Mental disability Neurocognitive disorder Seizure disorder Transaminitis Surgical History (Updated 04/15/21 @ 12:22 by Antione Mike MD) History of colostomy / reversal S/P placement of VNS (vagus nerve stimulation) device Physical Exam Narrative: EXAM NARRATIVE: Head: Atraumatic Eyes: PERRL, conjunctiva without injection ENT: Mucous membrane moist NECK: Supple, ROM intact LUNGS: LCTAB, no crackles/rhonchi CV: RRR ABDOMEN: Soft, no focal TTP. NO guarding rebound, guarding, rigidity. No CVA tenderness to percussion. Neg Olguin/Neg McBurney's point tenderness, no suprabupic tenderness to palpation. EXTREMITY: normal ROM SKIN: No rash or erythema NEURO: Awake and alert, no focal motor deficits PSYCH: Unchanged compared to baseline according to family Course Vital Signs: Vital signs: Vital Signs Temperature 98.7 F 04/09/21 13:41 Pulse Rate 102 H 04/09/21 13:41 Respiratory Rate 12 04/09/21 13:41 Blood Pressure 98/60 04/09/21 13:41 Pulse Oximetry 96 04/09/21 13:41 MDM - General Adult MDM Narrative: Medical decision making narrative: Patient is a 26-year-old male with a history intellectual disability, ALL in remission, seizure on his vagus nerve stimulator who presents the emergency room for evaluation of nausea/vomiting of unknown source. Exam patient is hemodynamically stable afebrile, no focal findings on abdominal exam. Work-up including CBC, CMP, lipase, UA, blood culture, lactic acid, CT abdomen pelvis, CT brain, XR chest, salicylate and tylenol levels Intervention: IVF, zofran Continues to vomit despite taking Zofran. CT imaging today showed gastroenterocolitis. 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 Patient is noted to be anemic at 10.4. Mom tells me that patient has been off of iron tablets and is currently followed by Dr. Carrillo for evaluation of anemia. At the present time, I performed shared decision making with family. Family tells me that they are not able to take care of patient given this altered mental status, and they do not think the patient will be able to tolerate Zofran at home. Disposition: Admission Lab Data: Labs: Lab Results 04/08/21 04/08/21 04/08/21 21:15 21:15 21:15 WBC RBC Hgb Hct MCV MCH MCHC RDW Plt Count MPV Neut % (Auto) Lymph % (Auto) [place] % (Auto) Eos % (Auto) Baso % (Auto) Neut # (Auto) Lymph # (Auto) [place] # (Auto) Eos # (Auto) Baso # (Auto) Nucleated RBC % (a uto) Nucleated RBCs # Sodium Potassium Chloride Carbon Dioxide Anion Gap BUN Creatinine GFR Calculation Glucose Calculated Osmolal ity Lactic Acid Calcium Total Bilirubin AST ALT Alkaline Phosphata se Total Protein Albumin Globulin Lipase Salicylates Acetaminophen Nasal/Oral COVID-1 9 PCR Not detected Influenza Type A A g Negative (Negative) Influenza Type B A g Negative (Negative) SARS-CoV-2 Ag (Rap id) Negative (Negative) 04/08/21 04/08/21 04/08/21 21:17 21:17 21:17 WBC 9.9 10^3/uL 10^3/ uL (4.0-10.0) RBC 3.24 10^6/uL L 10 ^6/uL (4.1-5.3) Hgb 10.4 g/dL L g/dL (11.7-16.6) Hct 35.4 % L % (42.0-52.0) MCV 109.3 fl H fl (80-94) MCH 32.1 pg pg (28.0-34.0) MCHC 29.4 g/dL L g/dL (30.0-36.0) RDW 15.5 % H % (12.1-15.1) Plt Count 522 10^3/cmm H 10 ^3/cmm (130-400) MPV 8.2 fL fL (7.4-10.4) Neut % (Auto) 82.7 % % Lymph % (Auto) 8.6 % % [place] % (Auto) 7.1 % % Eos % (Auto) 0.0 % % Baso % (Auto) 0.4 % % Neut # (Auto) 8.18 10^3/uL H 10 ^3/uL (1.8-7.7) Lymph # (Auto) 0.9 10^3/uL 10^3/ uL (0.8-4.8) [place] # (Auto) 0.7 10^3/uL 10^3/ uL (0.2-0.9) Eos # (Auto) 0.0 10^3/uL 10^3/ uL (0.0-0.8) Baso # (Auto) 0.0 10^3/uL 10^3/ uL (0.0-0.1) Nucleated RBC % (a uto) 0 % % Nucleated RBCs # 0.0 /100WBC /100W BC Sodium 139 mmol/L mmol/L (136-145) Potassium 4.2 mmol/L mmol/L (3.5-5.1) Chloride 104 mmol/L mmol/L (98-107) Carbon Dioxide 22 mmol/L mmol/L (22-29) Anion Gap 17.2 (5-19) BUN 16 mg/dL mg/dL (6-20) Creatinine 0.4 mg/dL L mg/dL (0.7-1.2) GFR Calculation 258.0 mL/min H mL /min (90-130) Glucose 102 mg/dL mg/dL (65-115) Calculated Osmolal ity 289 mOsm/kg mOsm/ kg (285-295) Lactic Acid 0.9 mmol/L mmol/L (0.5-2.2) Calcium 8.0 mg/dL L mg/dL (8.5-10.5) Total Bilirubin 0.2 mg/dL mg/dL (0.15-1.2) AST 70 U/L H U/L (0-40) ALT 53 U/L H U/L (0-41) Alkaline Phosphata se 188 IU/L H IU/L (40-130) Total Protein 4.4 g/dL L g/dL (6.6-8.7) Albumin 2.9 g/dL L g/dL (3.5-5.2) Globulin 1.5 g/dL g/dL (1.3-4.6) Lipase 1138 U/L H U/L (13-60) Salicylates < 0.3 mg/dL L mg/ dL (3-10) Acetaminophen < 5.0 ug/mL L ug/ mL (10-30) Nasal/Oral COVID-1 9 PCR Influenza Type A A g Influenza Type B A g SARS-CoV-2 Ag (Rap id) Imaging Data^: Other Imaging: Radiologist's impression: [address] [id number] Scan ReportSigned Patient: Rm Baum #: [id number]: 1995Acct#:[id number]/Sex: 26 / MADM Date: 04/08/21Loc: ERRoom/Bed:Attending Dr: Ordering Provider/Ordering MD: Andrea Plata MD Date of Service: 04/08/21 Procedure(s): CT head wo con* [id number] Accession Number(s): [id number] Report Number: [id number] PROCEDURE INFORMATION: Exam: CT Head Without Contrast Exam date and time: 04/08/2021 8:21 PM Age: 26 years old Clinical indication: Condition or disease; Convulsions or seizures; Additional info: Eval for vomiting TECHNIQUE: Imaging protocol: Computed tomography of the head without contrast. Radiation optimization: All CT scans at this facility use at least one of these dose optimization techniques: automated exposure control; mA and/or kV adjustment per patient size (includes targeted exams where dose is matched to clinical indication); or iterative reconstruction. COMPARISON: No relevant prior studies available. RADIATION DOSE METRICS: Total DLP (mGy-cm): 923.25 FINDINGS: Brain: No acute infarct or hemorrhage. 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 Cerebral ventricles: No ventriculomegaly. Paranasal sinuses: Mild right frontal and right sphenoid sinus mucosal thickening. Mastoid air cells: Visualized mastoid air cells are clear. Bones/joints: No calvarial or skull base fracture. Soft tissues: Unremarkable. CT/CT head wo con* [id number] IMPRESSION: 1. No acute infarct or hemorrhage. 2. No calvarial or skull base fracture. 3. Mild right frontal and right sphenoid sinus mucosal thickening. 4. 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 Radiation Dose CTDIVOL = (mGy): DLP = 923.25 (mGy-cm) Dictated By:Kings Fraser By:Kings Fraser Date/Time:04/08/212217DD/ [address] [address]ATrx ReportSigned Patient: Rm Baum #: [id number]: 1995Acct#:[id number]/Sex: 26 / MADM Date: 04/08/21Loc: ERRoom/Bed:Attending Dr: Ordering Provider/Ordering MD: Andrea Plata MD Date of Service: 04/08/21 Procedure(s): XR chest 1V portable [id number] Accession Number(s): [id number] Report Number: [id number] PROCEDURE INFORMATION: Exam: XR Chest Exam date and time: 04/08/2021 8:21 PM Age: 26 years old Clinical indication: Other: Vomiting TECHNIQUE: Imaging protocol: XR of the chest. Views: 1 view. COMPARISON: CR XR chest 1V portable [id number] 01/11/2021 1:53 AM FINDINGS: Tubes, catheters and devices: Left-sided phrenic nerve stimulator. Lungs: Unremarkable. No consolidation. Pleural spaces: Unremarkable. No pleural effusion. No pneumothorax. Heart/Mediastinum: Unremarkable. No cardiomegaly. Bones/joints: Unremarkable. XR/XR chest 1V portable [id number] IMPRESSION: No acute disease. Radiation Dose CTDIVOL = (mGy): DLP = (mGy-cm) Dictated By:Kings Fraser By:Kings Fraser Date/Time:04/08/212154DD/ [address] [address]EJ Scan ReportSigned Patient: Rm Baum #: [id number]: 1995Acct#:[id number]/Sex: MADM Date: 04/08/21Loc: ERRoom/Bed:Attending Dr: Ordering Provider/Ordering MD: Andrea Plata MD Date of Service: 04/08/21 Procedure(s): CT abdomen pelvis w con* [id number] Accession Number(s): [id number] Report Number: [id number] PROCEDURE INFORMATION: Exam: CT Abdomen And Pelvis With Contrast Exam date and time: 04/08/2021 8:21 PM Age: 26 years old Clinical indication: Nausea and vomiting; Prior surgery TECHNIQUE: Imaging protocol: Computed tomography of the abdomen and pelvis with contrast. Radiation optimization: All CT scans at this facility use at least one of these dose optimization techniques: automated exposure control; mA and/or kV adjustment per patient size (includes targeted exams where dose is matched to clinical indication); or iterative reconstruction. Contrast material: OMNI 300; Contrast volume: 75 ml; Contrast route: INTRAVENOUS (IV); COMPARISON: US [facility] [place] Testicular 10/22/2018 11:51 AM RADIATION DOSE METRICS: Total DLP (mGy-cm): 1003.62 FINDINGS: Liver: Hepatic steatosis. Periportal edema likely related hydration status. Gallbladder and bile ducts: Gallbladder is somewhat prominent, ultrasound could further evaluate this. Pancreas: Normal. No ductal dilation. Spleen: Normal. No splenomegaly. Adrenal glands: Normal. No mass. Kidneys and ureters: Normal. No hydronephrosis. Stomach and bowel: Prominent fluid in stomach with some wall thickening suspected of the small bowel and colon suggestive of a gastro enterocolitis. Appendix: No evidence of appendicitis. Intraperitoneal space: Unremarkable. No free air. No significant fluid collection. Vasculature: Unremarkable. No abdominal aortic aneurysm. Lymph nodes: Unremarkable. No enlarged lymph nodes. Urinary bladder: Unremarkable as visualized. Reproductive: Unremarkable as visualized. Bones/joints: Unremarkable. No acute fracture. Soft tissues: Unremarkable. CT/CT abdomen pelvis w con* [id number] IMPRESSION: 1. Prominent fluid in stomach with some wall thickening suspected of the small bowel and colon suggestive of a gastro enterocolitis. 2. Hepatic steatosis. 3. Periportal edema likely related hydration status. 4. Gallbladder is somewhat prominent, ultrasound could further evaluate this. Radiation Dose CTDIVOL = (mGy): DLP = 1003.62 (mGy-cm) Dictated By:Jason Smith MDSigned By:Jason Smith MDSigned Date/Time:04/08/21 2253DD/ 20 Discharge Plan Discharge Patient Disposition: Admitted As Inpatient Admit Provider: Monserrat Hernandez Clinical Impression: Nausea & vomiting, Anemia Condition: Stable Discharge Diet: Regular Coding Level of Care Code ED Offset Press Operator for Chg Fwd
[2021-04-08] MEDS: ondansetron 2 mg/ML SDV 2 mL 4 MG IVP (21:12)
[2021-04-08] MEDS: sodium chloride 0.9% 1,000 ML 999 ML IV (21:12)
[2021-04-08 21:34] LABS: Basophils % 0.4 %; Hematocrit 35.4 % (42.0-52.0); Hemoglobin 10.4 g/dL (11.7-16.6); Lymphocytes # 0.9 10^3/uL (0.8-4.8); Lymphocytes % 8.6 %; Mean Corpuscular HGB Conc 29.4 g/dL (30.0-36.0); Mean Corpuscular Hemoglobin 32.1 pg (28.0-34.0); Mean Corpuscular Volume 109.3 fl (80-94); Mean Platelet Volume 8.2 fL (7.4-10.4); Monocytes # 0.7 10^3/uL (0.2-0.9); Monocytes % 7.1 %; Neutrophils # 8.18 10^3/uL (1.8-7.7); Neutrophils % 82.7 %; Nucleated Red Blood Cells % 0 %; Platelet Count 522 10^3/cmm (130-400); Red Blood Count 3.24 10^6/uL (4.1-5.3); Red Cell Distribution Width 15.5 % (12.1-15.1); White Blood Count 9.9 10^3/uL (4.0-10.0)
[2021-04-08 21:55] LABS: Lactic Sepsis W/Reflex 0.9 mmol/L (0.5-2.2)
[2021-04-08 22:05] LABS: Alanine Aminotransferase 53 U/L (0-41); Albumin Level 2.9 g/dL (3.5-5.2); Alkaline Phosphatase 188 IU/L (40-130); Anion Gap 17.2 (5-19); Aspartate Amino Transferase 70 U/L (0-40); Blood Urea Nitrogen 16 mg/dL (6-20); Carbon Dioxide 22 mmol/L (22-29); Chloride 104 mmol/L (98-107); Globulin 1.5 g/dL (1.3-4.6); Glucose 102 mg/dL (65-115); Osmolality Calculated 289 mOsm/kg (285-295); Potassium 4.2 mmol/L (3.5-5.1); Sodium 139 mmol/L (136-145); Total Bilirubin 0.2 mg/dL (0.15-1.2); Total Protein 4.4 g/dL (6.6-8.7)
[2021-04-08 22:05] LABS: Influenza A by IFA Negative (Negative); Influenza B by IFA Negative (Negative); SARS Covid-2 Antigen Negative (Negative)
[2021-04-08] MEDS: iohexol 300 mg/mL 100 mL Btl IV (22:06)
[2021-04-08 22:10] LABS: Acetaminophen < 5.0 ug/mL (10-30); Salicylate < 0.3 mg/dL (3-10)
[2021-04-08 22:14] LABS: Lipase 1138 U/L (13-60)
[2021-04-08] MEDS: lactated ringers 1,000 ML 999 ML IV (22:28)
[2021-04-09] VITALS (7 sets, daily range): BP systolic 95–106; BP diastolic 56–67; PULSE 72–117; RESP 12–31; TEMP 37.1; O2SAT 96–100; BMI 16.7
--- NOTE | 2021-04-09 00:38 | US_ITS ---
WS: [id number] ULTRASOUND ABDOMEN LIMITED CLINICAL INFORMATION: evaluate for cholecytsitis,biliary obstruction COMPARISON: None. FINDINGS: Liver Size: Normal. Craniocaudal length: 15.6 cm. Echogenicity: Normal. Surface nodularity: None. Mass (size and location): None. Bile ducts Intrahepatic ducts: Normal. Common bile duct diameter: 0.3 cm. Gallbladder Normal. Gallstones: None. Gallbladder sludge: None. Gallbladder wall thickening: None. Pericholecystic fluid: None. Sonographic Olguin sign: Absent. Pancreas Not well seen due to bowel gas Right kidney: Normal. Hydronephrosis: None. Size: 12.9 cm x 4.9 cm x 5.1 cm. Abdominal aorta and IVC Visualized portions are normal. Ascites: None. US/US liver [id number] IMPRESSION: 1. Normal abdominal ultrasound 2. Normal gallbladder. Normal common bile duct.
--- NOTE | 2021-04-09 00:41 | PM.HP ---
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 labs notable for elevated liver enzymes, elevatted lipase. CT abdomen with gastroenterocolitis and Gb wall edema rasiing suspcion for cholecystitis. Review of Systems General: Reports: ROS unobtainable due to medical condition Medications/Allergies Home Medications Medication Instructions Recorded Confirmed Last Taken Type acetaminophen 160 mg/5 mL oral 500 mg PO QID PRN 10/05/19 02/05/20 Unknown History suspension diazepam 10 mg tablet 10 mg PO BID PRN 10/05/19 02/05/20 Unknown History divalproex 125 mg capsule,delayed See Rx Instructions .ROUTE .COMPLEX 10/05/19 02/05/20 02/05/20 History release sprinkle levothyroxine 50 mcg tablet 50 mcg PO DAILY 10/05/19 02/05/20 02/05/20 History rufinamide 400 mg tablet 1,200 mg PO BID 10/05/19 02/05/20 02/05/20 History promethazine 25 mg PO TID PRN #473 ml 01/11/21 Unknown Rx Allergies Allergy/AdvReac Type Severity Reaction Status Date / Time No Known Allergies Allergy Unverified 10/05/19 15:08 PFSH Acute PFSH: Medical History (Updated 04/09/21 @ 07:07 by Monserrat Hernandez MD) Diarrhea Hematuria Hypothyroidism Leukemia Mental disability Neurocognitive disorder Seizure disorder Vitals/I&O/Wt Last Vital Signs Pulse 93 04/08/21 19:42 Resp 18 04/08/21 19:42 BP 106/71 04/08/21 19:42 Pulse Ox 91 04/08/21 19:42 04/08/21 04/08/21 04/09/21 14:59 22:59 06:59 Intake Total 1000 / 1000 Balance 1000 / 1000 Weight last 48 hrs Weight 53.07 kg Physical Exam Narrative: EXAM NARRATIVE: General: No acute distress, unable to participate in history HEENT: PERRLA, pupils bilaterally equal and reactive, pallors not present Chest: Normal vesicular breath sounds, no added sounds, equal good air entry bilaterally CVS: S1-S2 regular, no murmurs, no tachycardia, no gallops, no rubs Abdomen: Soft, nontender, no organomegaly, bowel sounds present Data : 04/08/21 21:17 04/08/21 21:17 Micro: Microbiology 04/08/21 21:17 Blood Culture - Preliminary Blood SPECIMEN COLLECTED 04/08/21 21:02 Blood Culture - Preliminary Blood SPECIMEN COLLECTED Other data: Impressions Abdomen/Pelvis CT 04/08/21 20:21 IMPRESSION: 1. Prominent fluid in stomach with some wall thickening suspected of the small bowel and colon suggestive of a gastro enterocolitis. 2. Hepatic steatosis. 3. Periportal edema likely related hydration status. 4. Gallbladder is somewhat prominent, ultrasound could further evaluate this. Radiation Dose CTDIVOL = (mGy): DLP = 1003.62 (mGy-cm) Chest X-Ray 04/08/21 20:21 IMPRESSION: No acute disease. Radiation Dose CTDIVOL = (mGy): DLP = (mGy-cm) Head CT 04/08/21 20:21 IMPRESSION: 1. No acute infarct or hemorrhage. 2. No calvarial or skull base fracture. 3. Mild right frontal and right sphenoid sinus mucosal thickening. 4. 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 Radiation Dose CTDIVOL = (mGy): DLP = 923.25 (mGy-cm) A&P Assessment and plan (1) Enterocolitis: Status: Acute (2) Transaminitis: Status: Acute Additional A&P Information Patient presenting with intractable nausea, vomiting, enterocolitis with elevated lipase and transmainitis . Ct abdomen additonally with concern for GB wall edema and cholecystsitis USG liver to evalaute for the same NPO for now, unable to tolerate po intake at this time Empiric Zosyn while pending results of above US Enteric PCR panel, C diff PCR prn zofran and promethazine for nausea management Covid PCR pending check hepatitis panel, valproic acid level Attestations Medical Necessity Statement*: antcipate >2midnight stay for above defined care Coding Level of Care Code Acute Meat Seafood Associate for [facility] Fwd Diagnoses Enterocolitis K52.9 Transaminitis R74.01
[2021-04-09] MEDS: piperacillin-tazobactam 3.375 GM in sodium chloride 0.9% (plus) 50 ML IV ×2 (01:31→09:17)
[2021-04-09] MEDS: famotidine 20 mg/2 mL INJ IVP (01:32)
[2021-04-09] MEDS: enoxaparin 40 mg/0.4 mL Syringe SUBCUT (01:32)
[2021-04-09] MEDS: sodium chloride 0.9% 1,000 ML 100 ML IV (01:32)
[2021-04-09] MEDS: dextrose 5%-sod chloride 0.9% 1,000 ML 75 ML IV (06:31)
[2021-04-09] MEDS: divalproex Sprinkles 125 mg Capsule 750 MG PO (07:49)
[2021-04-09] MEDS: levothyroxine 50 mcg Tablet PO (09:17)
[2021-04-09 11:37] LABS: Alanine Aminotransferase 30 U/L (0-41); Albumin Level 2.2 g/dL (3.5-5.2); Alkaline Phosphatase 132 IU/L (40-130); Anion Gap 15.6 (5-19); Aspartate Amino Transferase 19 U/L (0-40); Blood Urea Nitrogen 10 mg/dL (6-20); Calcium 7.2 mg/dL (8.5-10.5); Carbon Dioxide 21 mmol/L (22-29); Chloride 104 mmol/L (98-107); Globulin 1.6 g/dL (1.3-4.6); Glomerular Filtration Rate 359.6 mL/min (90-130); Glucose 104 mg/dL (65-115); Osmolality Calculated 283 mOsm/kg (285-295); Potassium 3.6 mmol/L (3.5-5.1); Sodium 137 mmol/L (136-145); Total Bilirubin 0.2 mg/dL (0.15-1.2); Total Protein 3.8 g/dL (6.6-8.7)
[2021-04-09 12:00] LABS: Hepatitis A Antibody IgM Non-Reactive (Nonreactive); Hepatitis B Core AB, Total Non-Reactive (Nonreactive); Hepatitis B Surface AB 3.5 (11.5-1000); Hepatitis B Surface Antigen Non-Reactive (Nonreactive); Hepatitis C Virus Antibody Non-Reactive (Nonreactive)
[2021-04-09 12:10] LABS: Valproic Acid Level 40.4 ug/mL (50-100)
--- NOTE | 2021-04-09 13:30 | P.DS_ITS ---
Discharge Providers Date of Admission: 04/09/21 01:40 Date of Discharge: April 09, 2021 Attending Provider at Admission: Monserrat Hernandez MD Attending Provider at Discharge: Deyanira Schuler MD Primary Care Provider: Jon Grider DO Diagnoses at Discharge Discharge Diagnosis (1) Enterocolitis: Status: Acute (2) Transaminitis: Status: Acute Reason for Visit Reason for Visit: Vomiting Hospital Course Hospital Course Patient was admitted for management of recurrent nausea vomiting which he experienced 24 hours before his presentation to the ER. He was started on IV fluids and antibiotics for gastroenteritis. His symptoms improved and he was able to tolerate his regular diet in the morning, he remained afebrile. Liver ultrasound did not show any acute cholecystitis. Patient's family was pretty upset that we sent Covid PCR without their consent, and they requested that Mr. Baum be discharged from the hospital and not wait for the results. I did discharge this patient on ciprofloxacin, Flagyl, Zofran and CBC, CMP prescription for follow-up. Clinically his symptoms improved. Physical Exam Narrative: EXAM NARRATIVE: Intellectually disabled male Does make eye contact however does not communicate Abdomen soft Bowel sounds present Lower extremity no edema S1, S2 Saturating well on room air Tolerating his diet Discharge Data Data Completed and Pending: Completed Studies During Hospitalization Category Date Time Status CT abdomen pelvis w con* [id number] Urge nt Cat Scan 04/08/21 20:[address] head wo con* [id number] Urgent Cat Scan 04/08/21 20:21 Completed XR chest 1V shahid ble [id number] Stat Exams 04/08/21 20:21 [place] liver [id number] Ro utine Ultrasound 04/09/21 00:38 Completed Pending at discharge Category Date Time Status Blood Culture Sta t Lab 04/08/21 21:17 Results Clostridioides Di fficile PCR Routin e Lab 04/09/21 00:38 Uncollected Complete Blood Co unt w/Auto AM LABS Lab 04/10/21 04:00 Ordered Comprehensive Met abolic Panel AM LA BS Lab 04/10/21 04:00 Ordered Coronavirus Test [facility] Routi ne Lab 04/08/21 21:15 Received Enteric Bacterial Panel by PCR Rout ine Lab 04/09/21 00:38 Uncollected Urinalysis Stat Lab 04/08/21 20:21 Uncollected Labs from last 24 hours 04/09/21 04/09/21 04/08/21 10:50 10:50 21:17 WBC RBC Hgb Hct MCV MCH MCHC RDW Plt Count MPV Neut % (Auto) Lymph % (Auto) [place] % (Auto) Eos % (Auto) Baso % (Auto) Neut # (Auto) Lymph # (Auto) [place] # (Auto) Eos # (Auto) Baso # (Auto) Nucleated RBC % (a uto) Nucleated RBCs # Sodium 137 Potassium 3.6 Chloride 104 Carbon Dioxide 21 L Anion Gap 15.6 BUN 10 Creatinine 0.3 L GFR Calculation 359.6 H Glucose 104 Calculated Osmolal ity 283 L Lactic Acid 0.9 Calcium 7.2 L Total Bilirubin 0.2 AST 19 ALT 30 Alkaline Phosphata se 132 H Total Protein 3.8 L Albumin 2.2 L Globulin 1.6 Lipase Salicylates Acetaminophen Valproic Acid 40.4 L Nasal/Oral COVID-1 9 PCR Hepatitis A IgM Ab Non-reactive Hep Bs Antigen Non-reactive Hep Bs Antibody 3.5 L Hep B Core Total A b Non-reactive Hepatitis C Antibo dy Non-reactive Influenza Type A A g Influenza Type B A g SARS-CoV-2 Ag (Rap id) 04/08/21 04/08/21 04/08/21 21:17 21:17 21:15 WBC 9.9 RBC 3.24 L Hgb 10.4 L Hct 35.4 L MCV 109.3 H MCH 32.1 MCHC 29.4 L RDW 15.5 H Plt Count 522 H MPV 8.2 Neut % (Auto) 82.7 Lymph % (Auto) 8.6 [place] % (Auto) 7.1 Eos % (Auto) 0.0 Baso % (Auto) 0.4 Neut # (Auto) 8.18 H Lymph # (Auto) 0.9 [place] # (Auto) 0.7 Eos # (Auto) 0.0 Baso # (Auto) 0.0 Nucleated RBC % (a uto) 0 Nucleated RBCs # 0.0 Sodium 139 Potassium 4.2 Chloride 104 Carbon Dioxide 22 Anion Gap 17.2 BUN 16 Creatinine 0.4 L GFR Calculation 258.0 H Glucose 102 Calculated Osmolal ity 289 Lactic Acid Calcium 8.0 L Total Bilirubin 0.2 AST 70 H ALT 53 H Alkaline Phosphata se 188 H Total Protein 4.4 L Albumin 2.9 L Globulin 1.5 Lipase 1138 H Salicylates < 0.3 L Acetaminophen < 5.0 L Valproic Acid Nasal/Oral COVID-1 9 PCR Hepatitis A IgM Ab Hep Bs Antigen Hep Bs Antibody Hep B Core Total A b Hepatitis C Antibo dy Influenza Type A A g Influenza Type B A g SARS-CoV-2 Ag (Rap id) Negative 04/08/21 04/08/21 21:15 21:15 WBC RBC Hgb Hct MCV MCH MCHC RDW Plt Count MPV Neut % (Auto) Lymph % (Auto) [place] % (Auto) Eos % (Auto) Baso % (Auto) Neut # (Auto) Lymph # (Auto) [place] # (Auto) Eos # (Auto) Baso # (Auto) Nucleated RBC % (a uto) Nucleated RBCs # Sodium Potassium Chloride Carbon Dioxide Anion Gap BUN Creatinine GFR Calculation Glucose Calculated Osmolal ity Lactic Acid Calcium Total Bilirubin AST ALT Alkaline Phosphata se Total Protein Albumin Globulin Lipase Salicylates Acetaminophen Valproic Acid Nasal/Oral COVID-1 9 PCR Pending Hepatitis A IgM Ab Hep Bs Antigen Hep Bs Antibody Hep B Core Total A b Hepatitis C Antibo dy Influenza Type A A g Negative Influenza Type B A g Negative SARS-CoV-2 Ag (Rap id) Vitals: Last Vital Signs Temp 98.7 F 04/09/21 08:56 Pulse 117 H 04/09/21 08:56 Resp 31 H 04/09/21 08:56 BP 99/56 04/09/21 08:56 Pulse Ox 96 04/09/21 08:56 Discharge Plan Discharge Patient Disposition: Home Condition: Stable Prescriptions: New ciprofloxacin HCl 500 mg tablet 500 mg PO BID Qty: 20 RF: 0 Flagyl 500 mg tablet 500 mg PO TID Qty: 30 RF: 0 Zofran 4 mg tablet 4 mg PO DAILY PRN (Reason: vomit) 7 Days Qty: 20 RF: 0 Continued Banzel 400 mg tablet 1,200 mg PO BID RF: 0 divalproex [Depakote Sprinkles] 125 mg capsule, delayed rel sprinkle See Rx Instructions .ROUTE .COMPLEX RF: 0 diazepam 10 mg tablet 10 mg PO BID PRN (Reason: Anxiety) RF: 0 levothyroxine [Synthroid] 50 mcg tablet 50 mcg PO DAILY RF: 0 acetaminophen [Children's Tylenol] 160 mg/5 mL suspension 500 mg PO QID PRN (Reason: Pain) RF: 0 promethazine 6.25 mg/5 mL syrup 25 mg PO TID PRN (Reason: nausea and vomiting) Qty: 473 RF: 0 Discharge Orders: Discharge Order (Routine); Ordered 04/09/21 Ordered By: Deyanira Schuler Other Ambulatory Orders: Complete Blood Count w/Auto (Routine) Timeframe: 3 Days Location: Determined by Patient Ordered By: Deyanira Schuler Comprehensive Metabolic Panel (Routine) Timeframe: 3 Days Facility: [facility] - Location: Lab - Main Lab Ordered By: Deyanira Schuler Referrals: Jon Grider, [Primary Care Provider] - (You have a follow up appointment with Dr. Grider on April 15 at 2:15pm. If you have any questions or concerns please call the office. ) Discharge Diet: Regular Patient Instructions: Ciprofloxacin (By mouth), Metronidazole (By mouth), Gastroenteritis (DC), Opioid Safety Discharge Attestations Time Spent in Discharge Care*: less than 30 min Quality Metrics Clinical Quality Measures During this hospital stay, did patient experience: None Coding Level of Care Code Acute Chg FW DC note Diagnoses Enterocolitis K52.9 Transaminitis R74.01
--- NOTE | 2021-04-09 14:23 | PC.NURSE ---
Pt left with mother and father. Discharge instructions provided to parents. IV removed. Pts VS stable upon departure.
[2021-04-09 14:50] LABS: Coronavirus Test Green County Not Detected
== END 2021-04-09 14:25 | disposition home or self-care (01) | DRG 392 ==
LOC: ER 22:00 → ER IP 04-09 01:41 → CSU 04-09 03:38
PROVIDERS: Emergency Medicine; Nurse Practitioner Family; Admitting Provider Student in an Organized Health Care Education/Training Program; Emergency Provider Emergency Medicine; PCP Internal Medicine; Visit Provider Internal Medicine
DX: K52.9 Noninfective gastroenteritis and colitis, unspecified (principal); C95.90 Leukemia, unspecified not having achieved remission; F79 Unspecified intellectual disabilities; Z96.82 Presence of neurostimulator; D64.9 Anemia, unspecified; E03.9 Hypothyroidism, unspecified
CPT/HCPCS: 36415; 70450; 71045; 74177; 76705; 80053; 80164; 80307; 83605; 83690; 85025; 86705; 86706; 86709; 86803; 87040; 87077; 87186; 87205; 87340; 87426; 87635; 87804; 96361; 96372; 96374; 96375; 97530; 99285; J1650; J2405; J2543; J3490; J7030; Q9967

== ENCOUNTER 2021-04-14 20:49 | Inpatient (IN) | payer MEDICARE, MEDICAID, SELFPAY ==
[2021-04-14 20:50] VITALS: BP 103/74; PULSE 90; RESP 18; TEMP 36.3; O2SAT 99; BMI 16.5
[2021-04-14 21:18] VITALS: BP 103/74; PULSE 90; RESP 16; O2SAT 96
--- NOTE | 2021-04-14 21:42 | CTR_ITS ---
PROCEDURE INFORMATION: Exam: CT Abdomen And Pelvis With Contrast Exam date and time: 04/14/2021 9:42 PM Age: 26 years old Clinical indication: Nausea and vomiting; Patient HX: N/v/d; Additional info: Vomiting, diarrhea TECHNIQUE: Imaging protocol: Computed tomography of the abdomen and pelvis with contrast. Radiation optimization: All CT scans at this facility use at least one of these dose optimization techniques: automated exposure control; mA and/or kV adjustment per patient size (includes targeted exams where dose is matched to clinical indication); or iterative reconstruction. Contrast material: OMNI 300; Contrast volume: 75 ml; Contrast route: INTRAVENOUS (IV); COMPARISON: CT abdomen pelvis w con* [id number] 04/08/2021 10:03 PM RADIATION DOSE METRICS: Total DLP (mGy-cm): 760.21 FINDINGS: Lungs: Lung bases are clear. Liver: The liver is normal. Gallbladder and bile ducts: The gallbladder is normal. There is no biliary dilation. Pancreas: The pancreas is unremarkable. Spleen: The spleen is unremarkable. Adrenal glands: The adrenal glands are unremarkable. Kidneys and ureters: The kidneys are unremarkable. No hydronephrosis or stones. No ureteral dilation. Stomach and bowel: There is mild fluid distention of the stomach. Radiodense debris is seen in the fundus. Assessment of bowel is limited by lack of intraperitoneal fat and diffuse fluid distention of bowel. The colon and small bowel cannot be confidently differentiated. There is marked fluid distention of bowel measuring up to 6 cm diameter in the left mid abdomen which contains dependent radiodense material. This finding is progressive since 03/19/2021. Appendix: Not visible Intraperitoneal space: There is no free air or significant intraperitoneal free fluid. Vasculature: The aorta is unremarkable. There is no aneurysm. The portal, splenic and superior mesenteric veins are patent. Lymph nodes: There is no lymphadenopathy in the retroperitoneum, mesentery, pelvis or inguinal regions. Urinary bladder: Unremarkable as visualized. Reproductive: Unremarkable as visualized. Bones/joints: Bones are unremarkable. Soft tissues: The abdominal wall is intact. CT/CT abdomen pelvis w con* [id number] IMPRESSION: Diffuse fluid distention of bowel is progressive since 04/08/2021. Bowel wall thickening is decreased. There is a markedly dilated fluid-filled portion of bowel in the left mid abdomen. Possible obstruction. Assessment of bowel is very limited on this exam. The colon cannot be confidently differentiated from the small bowel. Consider repeat exam with oral or rectal contrast for improved visualization of bowel. Radiation Dose CTDIVOL = (mGy): DLP = 760.21 (mGy-cm)
[2021-04-14 21:59] LABS: Basophils % 0.6 %; Hematocrit 37.8 % (42.0-52.0); Hemoglobin 11.8 g/dL (11.7-16.6); Lymphocytes # 1.2 10^3/uL (0.8-4.8); Lymphocytes % 17.8 %; Mean Corpuscular HGB Conc 31.2 g/dL (30.0-36.0); Mean Corpuscular Hemoglobin 32.2 pg (28.0-34.0); Mean Corpuscular Volume 103.3 fl (80-94); Mean Platelet Volume 8.3 fL (7.4-10.4); Monocytes # 0.6 10^3/uL (0.2-0.9); Monocytes % 9.7 %; Neutrophils # 4.61 10^3/uL (1.8-7.7); Neutrophils % 69.9 %; Nucleated Red Blood Cells % 0 %; Platelet Count 461 10^3/cmm (130-400); Red Blood Count 3.66 10^6/uL (4.1-5.3); Red Cell Distribution Width 14.3 % (12.1-15.1); White Blood Count 6.6 10^3/uL (4.0-10.0)
[2021-04-14] MEDS: sodium chloride 0.9% 1,000 ML 999 ML IV ×2 (22:01→23:09)
[2021-04-14 22:10] LABS: Alanine Aminotransferase 12 U/L (0-41); Albumin Level 3.2 g/dL (3.5-5.2); Alkaline Phosphatase 102 IU/L (40-130); Anion Gap 23.8 (5-19); Aspartate Amino Transferase 7 U/L (0-40); Blood Urea Nitrogen 8 mg/dL (6-20); C Reactive Protein 0.6 mg/L (0.0-4.9); Calcium 8.2 mg/dL (8.5-10.5); Carbon Dioxide 21 mmol/L (22-29); Chloride 94 mmol/L (98-107); Glucose 68 mg/dL (65-115); Lipase 48 U/L (13-60); Osmolality Calculated 277 mOsm/kg (285-295); Potassium 3.8 mmol/L (3.5-5.1); Sodium 135 mmol/L (136-145); Total Bilirubin 0.2 mg/dL (0.15-1.2); Total Protein 5.2 g/dL (6.6-8.7)
[2021-04-14 22:11] LABS: Lactate (Lactic Acid level) 0.6 mmol/L (0.5-2.2)
--- NOTE | 2021-04-14 22:21 | ED_ITS ---
HPI - Nausea/Vomiting/Diarrhea General: Chief complaint: Nausea/Vomiting/Diarrhea Stated complaint: ABD PAIN Time Seen by Provider: 04/14/21 21:01 History of Present Illness: HPI Narrative: 26-year-old male with a history of mental disability/developmental delay. He presents with vomiting and diarrhea the past couple of days. He had been admitted last week for similar symptoms, and was treated for enterocolitis. He was sent home on antibiotics and had done well a couple of days. Then he began to throw up again. He had one episode of loose stool as well today. MD elicited complaint: nausea, vomiting and diarrhea Pertinent past history: other Onset (ago): day(s) Description of vomiting: food contents and watery Description of diarrhea: watery Associated nausea: Yes Associated abdominal pain: Yes (Hard to tell by history) Location of pain: Other (Difficult to discern, patient not able to verbalize) Pain consistency: other Quality: other (Unknown) Context: recent antibiotic use Associated symtoms: Reports decreased urine output and nausea; Denies cough, fevers/chills, anorexia (Seems to be eating) or short of breath Review of Systems General: Reports: ROS unobtainable due to medical condition Resp: Denies: dyspnea, productive cough or non-productive cough GI: Reports: nausea PFSH ED PFSH: Medical History Anemia Diarrhea Enterocolitis Hematuria Hypothyroidism Leukemia Mental disability Neurocognitive disorder Seizure disorder Transaminitis Physical Exam Const: COMMON NORMALS: alert NUTRITIONAL APPEARANCE: thin HENMT: COMMON NORMALS: atraumatic and Normal external nose present HEAD & SCALP: atraumatic FACE & SINUS: normal facial exam NOSE: Normal external nose present and Normal nares present MOUTH: lip normal Eye: COMMON NORMALS: Equal, round and reactive pupils present and EOMs intact bilaterally PUPIL: Yes Equal, round and reactive pupils present Chest: COMMONS NORMALS: normal inspection of the chest Resp: COMMON NORMALS: normal respiratory effort, No use of accessory muscles and clear to auscultation bilaterally AUSCULTATION: clear to auscultation bilaterally Cardio: COMMON NORMALS: regular rate and regular rhythm RATE: regular rate RHYTHM: regular rhythm GI: AUSCULTATION: Yes normoactive bowel sounds PALPATION: No Guarding due to palpation present (GI) and No Rigid due to palpation Neuro: SENSORIUM/ORIENTATION: Yes alert Course Consultations: Consultation #1: argelia Time: 01:03 Vital Signs: Vital signs: Vital Signs Temperature 97.4 F L 04/14/21 20:50 Pulse Rate 90 04/14/21 21:18 Respiratory Rate 16 04/14/21 21:18 Blood Pressure 103/74 04/14/21 21:18 Pulse Oximetry 96 04/14/21 21:18 MDM - Nausea/Vomiting/Diarrhea MDM Narrative: Medical decision making narrative: 26-year-old male with vomiting and belly pain. He had a recent admission. His white blood cell count is 6. Sodium 135, bicarb 21, creatinine 0.4. CT of the belly shows diffuse fluid distention of the bowel that is progressive since his previous scan 04/08. Markedly dilated fluid-filled portion of bowel in the left midabdomen is concerning for a possible obstruction. NG tube will be sunk in the ER, admission for possible bowel obstruction. Will consult surgery in the morning. Hospitalist will admit. Lab Data: Labs: Lab Results 04/14/21 04/14/21 04/14/21 21:34 21:34 21:34 WBC 6.6 10^3/uL 10^3/ uL (4.0-10.0) RBC 3.66 10^6/uL L 10 ^6/uL (4.1-5.3) Hgb 11.8 g/dL g/dL (11.7-16.6) Hct 37.8 % L % (42.0-52.0) MCV 103.3 fl H fl (80-94) MCH 32.2 pg pg (28.0-34.0) MCHC 31.2 g/dL g/dL (30.0-36.0) RDW 14.3 % % (12.1-15.1) Plt Count 461 10^3/cmm H 10 ^3/cmm (130-400) MPV 8.3 fL fL (7.4-10.4) Neut % (Auto) 69.9 % % Lymph % (Auto) 17.8 % % [place] % (Auto) 9.7 % % Eos % (Auto) 0.0 % % Baso % (Auto) 0.6 % % Neut # (Auto) 4.61 10^3/uL 10^3 /uL (1.8-7.7) Lymph # (Auto) 1.2 10^3/uL 10^3/ uL (0.8-4.8) [place] # (Auto) 0.6 10^3/uL 10^3/ uL (0.2-0.9) Eos # (Auto) 0.0 10^3/uL 10^3/ uL (0.0-0.8) Baso # (Auto) 0.0 10^3/uL 10^3/ uL (0.0-0.1) Nucleated RBC % (a uto) 0 % % Nucleated RBCs # 0.0 /100WBC /100W BC Sodium 135 mmol/L L mmol /L (136-145) Potassium 3.8 mmol/L mmol/L (3.5-5.1) Chloride 94 mmol/L L mmol/ L (98-107) Carbon Dioxide 21 mmol/L L mmol/ L (22-29) Anion Gap 23.8 H (5-19) BUN 8 mg/dL mg/dL (6-20) Creatinine 0.4 mg/dL L mg/dL (0.7-1.2) GFR Calculation 258.0 mL/min H mL /min (90-130) Glucose 68 mg/dL mg/dL (65-115) Calculated Osmolal ity 277 mOsm/kg L mOs m/kg (285-295) Lactate 0.6 mmol/L mmol/L (0.5-2.2) Calcium 8.2 mg/dL L mg/dL (8.5-10.5) Total Bilirubin 0.2 mg/dL mg/dL (0.15-1.2) AST 7 U/L U/L (0-40) ALT 12 U/L U/L (0-41) Alkaline Phosphata se 102 IU/L IU/L (40-130) C-Reactive Protein 0.6 mg/L mg/L (0.0-4.9) Total Protein 5.2 g/dL L g/dL (6.6-8.7) Albumin 3.2 g/dL L g/dL (3.5-5.2) Globulin 2.0 g/dL g/dL (1.3-4.6) Lipase 48 U/L U/L (13-60) Valproic Acid 12/05/21 22:47 WBC RBC Hgb Hct MCV MCH MCHC RDW Plt Count MPV Neut % (Auto) Lymph % (Auto) [place] % (Auto) Eos % (Auto) Baso % (Auto) Neut # (Auto) Lymph # (Auto) [place] # (Auto) Eos # (Auto) Baso # (Auto) Nucleated RBC % (a uto) Nucleated RBCs # Sodium Potassium Chloride Carbon Dioxide Anion Gap BUN Creatinine GFR Calculation Glucose Calculated Osmolal ity Lactate Calcium Total Bilirubin AST ALT Alkaline Phosphata se C-Reactive Protein Total Protein Albumin Globulin Lipase Valproic Acid 38.6 ug/mL L ug/m L (50-100) Discharge Plan Discharge Patient Disposition: Admitted As Inpatient Admit Provider: Monserrat Hernandez Clinical Impression: Small bowel obstruction Condition: Fair Coding Level of Care Code ED Bilingual Administrative Assistant for Chg Fwd Exam Detailed
[2021-04-14] MEDS: iohexol 300 mg/mL 100 mL Btl IV (22:54)
[2021-04-14 23:49] LABS: Valproic Acid Level 38.6 ug/mL (50-100)
[2021-04-15] VITALS (7 sets, daily range): BP systolic 101–111; BP diastolic 62–72; PULSE 86–102; RESP 16–18; TEMP 36.4–37.1; O2SAT 90–98; BMI 16.5
[2021-04-15] MEDS: ondansetron 2 mg/ML SDV 2 mL 4 MG IVP (00:15)
--- NOTE | 2021-04-15 01:28 | P.HP_ITS ---
Providers/Chief Complaint Primary Care Provider: Jon Grider DO Chief Complaint: ABD PAIN History of Present Illness Rm Baum is a 26 year old male with history of intellectual disability, seizure on vagus life stimulator, ALL in remission followed by Dr. Carrillo recently seen here on April 08, 2021 when he had presented with intractable nausea vomiting Labs at the time were noted for elevated LFTs and lipase. CT abdomen had shown gastroenterocolitis and gallbladder wall edema. US was noted with no cholecystitis. He was started on IV fluids and antibiotics for gastroenteritis. His symptoms improved and he was able to tolerate his regular diet in the morning, he remained afebrile. He was discharged on ciprofloxacin, Flagyl, Zofran. He returns today brought by family with nausea, vomiting and one episode of loose stool. CT abdomen today shows Diffuse fluid distention of bowel is progressive since 04/08/2021. Bowel wall thickening is decreased. There is a markedly dilated fluid-filled portion of bowel in the left mid abdomen. Possible obstruction. NGT has been placed to suction in the ER. Currently afberile, hemodynamically stable. Review of Systems General: Reports: ROS unobtainable due to medical condition Medications/Allergies Home Medications Medication Instructions Recorded Confirmed Last Taken Type diazepam 10 mg tablet 10 mg PO BID PRN 10/05/19 04/14/21 Unknown History divalproex 125 mg capsule,delayed See Rx Instructions .ROUTE .COMPLEX 10/05/19 04/14/21 02/05/20 History release sprinkle levothyroxine 50 mcg tablet 50 mcg PO DAILY 10/05/19 04/14/21 02/05/20 History rufinamide 400 mg tablet 1,200 mg PO BID 10/05/19 04/14/21 02/05/20 History ondansetron HCl [Zofran] 4 mg PO DAILY PRN 7 Days #20 tab 04/09/21 04/14/21 Unknown Rx valproic acid 250 mg PO BID 04/14/21 04/14/21 Unknown History Allergies Allergy/AdvReac Type Severity Reaction Status Date / Time No Known Allergies Allergy Unverified 04/14/21 21:02 PFSH Acute PFSH: Medical History Anemia Diarrhea Enterocolitis Hematuria Hypothyroidism Leukemia Mental disability Neurocognitive disorder Seizure disorder Transaminitis Vitals/I&O/Wt Last Vital Signs Temp 97.4 F L 04/14/21 20:50 Pulse 90 04/14/21 21:18 Resp 16 04/14/21 21:18 BP 103/74 04/14/21 21:18 Pulse Ox 96 04/14/21 21:18 04/14/21 04/14/21 04/15/21 14:59 22:59 06:59 Intake Total 1999 Balance 1999 Weight last 48 hrs Weight 52.163 kg Physical Exam Narrative: EXAM NARRATIVE: General: No acute distress, does not communicate, makes some eye contact. thin appearing, BMI 16 HEENT: PERRLA, pupils bilaterally equal and reactive, pallors not present Chest: Normal vesicular breath sounds, no added sounds, equal good air entry bilaterally CVS: S1-S2 regular, no murmurs, no tachycardia, no gallops, no rubs Abdomen: no obvious pain eleicited on exam, however difficult to assess Data : 04/14/21 21:34 04/15/21 04:35 A&P Assessment and plan (1) Small bowel obstruction: Patient with recent enetrocolitis treated conservatively returning now wi th possible small bowel obstruction. possibilities include post infection ileus. NGT has been placed in the ER to low intermittent suction IVF d5 NS @ 75cc/hr Electrolytes currently in range Prn zofran for nausea vomiting Blood cx from 04/08 noted to have Cons+ 3/3 bottles, suspect contaminnat however given presence of vagus nerve stimulator, will repeat to ensure clearance today. iv vancomycin in the interim surgery consult in am Status: Acute Attestations Medical Necessity Statement*: anticipate >2midnight admission for management of small bowel obstruction, iv hydration, supportive care, iv abx, repeat blood cx Coding Level of Care Code Acute Handbag Frames Inspector for [facility] Fw Diagnoses Small bowel obstruction K56.609
[2021-04-15] MEDS: cetacaine Spray 5 gm Can 1 SPRAY TOPICAL (01:36)
[2021-04-15] MEDS: dextrose 5%-sod chloride 0.9% 1,000 ML 75 ML IV ×2 (03:14→15:07)
[2021-04-15] MEDS: enoxaparin 40 mg/0.4 mL Syringe SUBCUT (03:14)
--- NOTE | 2021-04-15 03:22 | XRR_ITS ---
PROCEDURE INFORMATION: Exam: XR Chest Exam date and time: 04/15/2021 3:22 AM Age: 26 years old Clinical indication: Device placement; Ng tube; Prior surgery; Surgery date: 6+ months; Additional info: Ng placement TECHNIQUE: Imaging protocol: XR of the chest. Views: 1 view. Total images: 1 COMPARISON: CR (CHEST, ) 04/08/2021 9:09 PM FINDINGS: Tubes, catheters and devices: Vagal nerve stimulator noted. Enteric tube is seen with the tip in the body of the stomach. Lungs: Unremarkable. No consolidation. Pleural spaces: Unremarkable. No pleural effusion. No pneumothorax. Heart/Mediastinum: Unremarkable. No cardiomegaly. Bones/joints: Osseous structures are unchanged from the prior exam. XR/XR chest 1V portable [id number] IMPRESSION: 1. Enteric tube is seen with the tip in the body of the stomach. 2. No acute cardiopulmonary process. Radiation Dose CTDIVOL = (mGy): DLP = (mGy-cm)
[2021-04-15 06:30] LABS: Alanine Aminotransferase 11 U/L (0-41); Albumin Level 2.6 g/dL (3.5-5.2); Alkaline Phosphatase 98 IU/L (40-130); Anion Gap 20.4 (5-19); Aspartate Amino Transferase 7 U/L (0-40); Blood Urea Nitrogen 5 mg/dL (6-20); Calcium 7.6 mg/dL (8.5-10.5); Carbon Dioxide 20 mmol/L (22-29); Chloride 100 mmol/L (98-107); Globulin 2.2 g/dL (1.3-4.6); Glomerular Filtration Rate 359.6 mL/min (90-130); Glucose 79 mg/dL (65-115); Osmolality Calculated 280 mOsm/kg (285-295); Potassium 3.4 mmol/L (3.5-5.1); Sodium 137 mmol/L (136-145); Total Bilirubin 0.2 mg/dL (0.15-1.2); Total Protein 4.8 g/dL (6.6-8.7)
--- NOTE | 2021-04-15 08:07 | P.CONIM_ITS ---
Providers/Reason For Consult Consulting Physician/Specialty*: General Surgery Antione Mike MD Reason for Consult*: Possible bowel obstruction. Attending Physician: Ted Vogel Primary Care Provider: Jon Grider DO History of Present Illness History of Present Illness Rm Baum is a 26 year old male who developed some nausea and vomiting earlier in the week. He was diagnosed with probable enteritis. It sounds like he was placed on an antibiotic. He ended up having intermittent problems with nausea and vomiting since. Yesterday he had a loose bowel movement but also had what his mother describes as almost projectile vomiting once. They came back to the hospital and a CAT scan was done which showed fluid-filled, dilated loops of bowel throughout the abdomen. A nasogastric tube was passed. The patient's mother says that he appears to be much more comfortable today. He has mental and physical disabilities which make communicating with him very difficult. Review of Systems General: Reports: ROS unobtainable due to medical condition Meds/Allergies Home Medications and Allergies Home Medications Medication Instructions Recorded Confirmed Last Taken Type diazepam 10 mg tablet 10 mg PO BID PRN 10/05/19 04/14/21 Unknown History divalproex 125 mg capsule,delayed See Rx Instructions .ROUTE .COMPLEX 10/05/19 04/14/21 02/05/20 History release sprinkle levothyroxine 50 mcg tablet 50 mcg PO DAILY 10/05/19 04/14/21 02/05/20 History rufinamide 400 mg tablet 1,200 mg PO BID 10/05/19 04/14/21 02/05/20 History ondansetron HCl [Zofran] 4 mg PO DAILY PRN 7 Days #20 tab 04/09/21 04/14/21 Unknown Rx valproic acid 250 mg PO BID 04/14/21 04/14/21 Unknown History Allergies Allergy/AdvReac Type Severity Reaction Status Date / Time No Known Allergies Allergy Unverified 04/14/21 21:02 Current Medications Current Medications Generic Name Dose Route Start Last Admin Trade Name Freq PRN Reason Stop Dose Admin Enoxaparin Sodium 40 mg 04/15/21 02:00 04/15/21 03:14 Enoxaparin 40 Mg/0.4 Ml Syringe SUBCUT 40 mg Q24H MATILDE Administration Dextrose/Sodium Chloride 1,000 mls @ 75 mls/hr 04/15/21 01:30 04/15/21 03:14 Dextrose 5%-Sod Chloride 0.9% IV 75 mls/hr .[id number] MATILDE Administration PFSH Acute PFSH: Medical History (Updated 04/15/21 @ 08:24 by Antione Mike MD) Anemia Diarrhea Enterocolitis Hematuria Hypothyroidism Leukemia Mental disability Neurocognitive disorder Seizure disorder Transaminitis Surgical History (Updated 04/15/21 @ 08:25 by Antione Mike MD) History of colostomy / reversal Vitals/I&O/Wt Last Vital Signs Temp 97.9 F 04/15/21 07:26 Pulse 86 04/15/21 07:26 Resp 16 04/15/21 07:26 BP 103/62 04/15/21 07:26 Pulse Ox 98 04/15/21 07:26 04/14/21 04/15/21 04/15/21 22:59 06:59 14:59 Intake Total 2000 / 2000 Output Total 200 / 200 Balance 1800 / 1800 Weight last 48 hrs Weight 115 lb Weight 115 lb Physical Exam Narrative: EXAM NARRATIVE: The patient was encountered in his hospital room in the presence of his mother. He has a nasogastric tube in place which is draining some light brown-colored fluid. He is nonverbal. The pupils are equal. No neck masses are palpated. The heart is regular. The lungs are clear anteriorly. The abdomen is scaphoid and there is a midline scar. Bowel sounds are present. The abdomen does not seem to be tender to palpation. No masses are palpated. The extremities reveal no edema. Data Imaging^: CT Abd/Pel: Radiologist's impression: CT abdomen/pelvis 04/14/2021 IMPRESSION: Diffuse fluid distention of bowel is progressive since 04/08/2021. Bowel wall thickening is decreased. There is a markedly dilated fluid-filled portion of bowel in the left mid abdomen. Possible obstruction. Assessment of bowel is very limited on this exam. The colon cannot be confidently differentiated from the small bowel. Consider repeat exam with oral or rectal contrast for improved visualization of bowel. A&P Assessment and plan (1) Enteritis: CT reviewed. I agree that the patient has some dilated loops of small bowel but appears he has fluid throughout his intestinal tract. I doubt this is a mechanical obstruction but I agree with the radiologist that it somewhat difficult to clearly identify particular loops of bowel on his CAT scan without oral contrast. I am going to recommend continuation of the nasogastric tube and I will continue to follow with you. Status: Acute Consult Attestations Medical Necessity Statement: See admitting service's notation. 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
[2021-04-15] MEDS: lidocaine 1% 5 ML in potassium chloride premix 100 ML 25 ML IV (08:55)
[2021-04-15] MEDS: divalproex Sprinkles 125 mg Capsule 750 MG PO (08:55)
[2021-04-15] MEDS: levothyroxine 50 mcg Tablet PO (08:56)
--- NOTE | 2021-04-15 09:57 | PC.CHAP ---
Pastoral Care Encounter/Spiritual Assessment Type of Contact [] Declined regional operations manager visit [] Patient/Family/Request visit [] Outpatient visit [] Follow-up visit [] Physician referral [] Code/Alert [x] Routine visit [] Staff referral [] Actively dying [] Patient sleeping [] Family support [] [] Out of room [] Palliative care [] [] Receiving care in room [] Pre-surgical visit [] Trauma [] Long length of stay [] ICU visit [] Other: Relational/Emotional Strength [x] Patient feels connected with others/family/visitors/staff [] Distress [] Loneliness/isolation [] Abandonment Spirituality of Patient [x] Person of Lupe [x] Attends Confucianist of their Lupe [x] Believes in Prayer [] Reads Bible or Gnosticist materials [] There are Spiritual issues to be addressed Java Consultant Interventions [x] Prayer [x] Active listening [] Non-anxious presence [] Spiritual/emotional support [] Crisis/trauma care [] Spiritual counseling [] Bereavement support [] Provided bereavement packet [] Provided Bible/devotional materials [] Provided toy/stuffed animal, coloring book to patient or family member [] Provided Communion [] Anointing/[place] [] Salvation [x] Completed spiritual assessment [] Other: Impact on Illness or Injury [] Angry [] Fearful [] Anxious [] Often cries [] Exhaustion [] Unable to work [] Unable to attend cheondoism [] Unable to walk/stand [] Unable to read [] Unable to drive [] Unable to eat/drink [] Unable to sleep [] Unable to be with family [] Patient intubated [] Other: Summary Time spent with patient 10 min
[2021-04-15] MEDS: valproic acid 250 mg/5 mL UDC 625 MG PO (15:08)
--- NOTE | 2021-04-15 16:54 | PM.PN ---
Subjective Subjective: Interval history: Mother at bedside. Helps to communicate. She denies pain or discomfort. NGT in place. Vitals/I&O/Wt Last Vital Signs Temp 97.9 F 04/15/21 15:15 Pulse 100 04/15/21 15:15 Resp 16 04/15/21 15:15 BP 102/72 04/15/21 15:15 Pulse Ox 94 04/15/21 15:15 04/15/21 04/15/21 04/15/21 06:59 14:59 22:59 Intake Total 1999 / 1999 105 / 105 891.25 / 996.25 Output Total 200 / 200 Balance 1800 / 1800 105 / 105 891.25 / 996.25 Weight last 48 hrs Weight 52.163 kg Weight 52.163 kg Physical Exam Const: COMMON NORMALS: no acute distress GENERAL APPEARANCE: frail appearing ORIENTATION/CONSCIOUSNESS: Yes awake HENMT: COMMON NORMALS: oropharynx normal Neck/C-Spine: COMMON NORMALS: no JVD Resp: COMMON NORMALS: normal respiratory effort and clear to auscultation bilaterally AUSCULTATION: clear to auscultation bilaterally Cardio: COMMON NORMALS: no JVD, regular rhythm, S1 normal heart sound present, S2 normal heart sound present and No murmurs present (Cardio) RHYTHM: regular rhythm HEART SOUNDS: S1 normal heart sound present and S2 normal heart sound present GI: COMMON NORMALS: Normal to inspection, nondistended, normoactive bowel sounds present, Soft to palpation and non-tender PALPATION: Yes Soft to palpation Extremity: COMMON NORMALS: no joint enlargement and no pedal edema Neuro: COMMON NORMALS: moves all extremities Skin: COMMON NORMALS: no rashes or lesions noted GENERAL SKIN EXAM: no rashes or lesions noted Data : 04/14/21 21:34 04/15/21 04:35 Micro: Microbiology 04/15/21 08:12 Blood Culture - Preliminary Blood SPECIMEN COLLECTED 04/15/21 08:12 Blood Culture - Preliminary Blood SPECIMEN COLLECTED A&P Assessment and plan (1) Small bowel obstruction: Appreciate surgery recommendations. Continue conservative management, NGT decompression. Bowel rest. Abdomen is not particularly distended. He did not appear to wince on palpation. IVF d5 NS @ 75cc/hr Electrolytes currently in range Prn zofran for nausea vomiting Blood cx from 04/08 noted to have Cons+ 3/3 bottles, suspect contaminnat however given presence of vagus nerve stimulator culture was repeated. So far no growth on preliminary. 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
[2021-04-15] MEDS: RUFINAMIDE 400 MG 1200 EACH PO (17:12)
[2021-04-15] MEDS: valproic acid 250 mg/5 mL UDC 750 MG PO (20:32)
[2021-04-16] VITALS (9 sets, daily range): BP systolic 64–101; BP diastolic 55–69; PULSE 69–114; RESP 16–19; TEMP 36.3–36.7; O2SAT 91–98
[2021-04-16] MEDS: enoxaparin 40 mg/0.4 mL Syringe SUBCUT (02:13)
--- NOTE | 2021-04-16 06:05 | PC.NURSE ---
SHIFT SUMMARY Has rested well without distressd. Nonverbal except for occ ouch or no . Mom says he says these but not appropriate to things asked. Contractures of hands. Is alert and looks around. NG tube in place via L nare and to LIS. Has had 700ml brown drainage this shift. Has a loose sounding cough occ that mom says has been having for quite some time now. Abd is flat and nontender. BS present. Had incont BM moderate loose stool tonight. C-diff specimen was sent with negative result. Is incont of urine as well. Mom is very helpful with care of pt. IV infusing without difficuty. Mom is refusing IV Vancomycin for pt. Says she wants to talk with because she understood that no infection is present. Vanc trough was discontinued due to pt not receiving med.
[2021-04-16 06:24] LABS: Basophils % 0.3 %; Hematocrit 33.3 % (42.0-52.0); Hemoglobin 10.8 g/dL (11.7-16.6); Lymphocytes # 1.2 10^3/uL (0.8-4.8); Mean Corpuscular HGB Conc 32.4 g/dL (30.0-36.0); Mean Corpuscular Hemoglobin 32.3 pg (28.0-34.0); Mean Corpuscular Volume 99.7 fl (80-94); Mean Platelet Volume 8.1 fL (7.4-10.4); Monocytes # 1.6 10^3/uL (0.2-0.9); Monocytes % 12.9 %; Neutrophils # 9.33 10^3/uL (1.8-7.7); Neutrophils % 75.9 %; Nucleated Red Blood Cells % 0 %; Platelet Count 422 10^3/cmm (130-400); Red Blood Count 3.34 10^6/uL (4.1-5.3); Red Cell Distribution Width 14.2 % (12.1-15.1); White Blood Count 12.3 10^3/uL (4.0-10.0)
[2021-04-16 06:40] LABS: Alanine Aminotransferase 9 U/L (0-41); Albumin Level 2.9 g/dL (3.5-5.2); Alkaline Phosphatase 94 IU/L (40-130); Anion Gap 15.3 (5-19); Aspartate Amino Transferase 6 U/L (0-40); Blood Urea Nitrogen 4 mg/dL (6-20); Calcium 7.6 mg/dL (8.5-10.5); Carbon Dioxide 25 mmol/L (22-29); Chloride 102 mmol/L (98-107); Globulin 1.7 g/dL (1.3-4.6); Glomerular Filtration Rate 359.6 mL/min (90-130); Glucose 96 mg/dL (65-115); Osmolality Calculated 285 mOsm/kg (285-295); Potassium 3.3 mmol/L (3.5-5.1); Sodium 139 mmol/L (136-145); Total Bilirubin 0.2 mg/dL (0.15-1.2); Total Protein 4.6 g/dL (6.6-8.7)
--- NOTE | 2021-04-16 07:29 | P.PN_ITS ---
Subjective Subjective: Interval history: The patient had a sizable loose bowel movement overnight. Vitals/I&O/Wt Last Vital Signs Temp 97.7 F 04/16/21 04:00 Pulse 107 H 04/16/21 04:00 Resp 17 04/16/21 04:00 BP 64/55 04/16/21 04:00 Pulse Ox 93 04/16/21 04:00 04/15/21 04/16/21 04/16/21 22:59 06:59 14:59 Intake Total 891.25 / 996.25 Output Total 1000 / 1700 700 / 1700 Balance -108.75 / -703.75 -700 / -703.75 Weight last 48 hrs Weight 115 lb Weight 115 lb Physical Exam Narrative: EXAM NARRATIVE: The patient is sleeping comfortably this morning. I did not wake him up but discussed his progress with his mother. Data : 04/16/21 06:13 04/16/21 06:13 Micro: Microbiology 04/16/21 01:30 C.difficile Toxin B Gene (PCR) - Final Stool Routine Collection 04/15/21 08:12 Blood Culture - Preliminary Blood SPECIMEN COLLECTED 04/15/21 08:12 Blood Culture - Preliminary Blood SPECIMEN COLLECTED A&P Assessment and plan (1) Enteritis: CT reviewed. I agree that the patient has some dilated loops of small bowel but appears he has fluid throughout his intestinal tract. He is having bowel movements though is clearly not fully obstructed. Continue present management. Status: Acute Attestations Medical Necessity Statement*: See admitting service's notation. 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
[2021-04-16] MEDS: levothyroxine 50 mcg Tablet PO (08:44)
[2021-04-16] MEDS: valproic acid 250 mg/5 mL UDC 750 MG PO ×2 (08:50→21:57)
[2021-04-16] MEDS: RUFINAMIDE 400 MG 1200 EACH PO ×2 (09:00→20:30)
--- NOTE | 2021-04-16 09:09 | PC.NURSE ---
AM MEDS AM MEDS GIVEN THROUGH NG TUBE WITH NO DIFFICULTY - PRIOR PLACEMENT OF NG VERIFIED WITH THIS NURSE AND AUTOMATIC SPOOLER OPERATOR MERINDA - BOTH PARENTS AT SIDE - DENY NEEDS - NG CLAMPED - PT IS NON VERBAL AT BASELINE WILL RESPOND WITH OUCH AND NO NOT AT APPROPRIATE TIMES - DOES REQUIRE TOTAL CARE - OVIDIO EXT CONTRACTED
--- NOTE | 2021-04-16 11:06 | PC.NURSE ---
NG tube PRIOR TO RETURNING NG TO [facility] - THIS NURSE RETAPED VENAGUARD - TINCTURE PLACED PRIOR TO VENAGUARD - RESECURED - PLACEMENT AGAIN VERIFIED WITH AIR BOLUS - POSITIVE PLACEMENT NOTED - BOTH PARENTS AT SIDE
--- NOTE | 2021-04-16 14:16 | P.PN_ITS ---
Subjective Subjective: Interval history: No vomiting. He is not communicating much. Mother notes had a bowel movement last night. Today noted to have some cough, which sounds productive. Mother says has been having recurrent cases of respiratory infection from which she has never fully recovered. Mother denies symptoms of aspiration with food or drink. Vitals/I&O/Wt Last Vital Signs Temp 97.8 F 04/16/21 12:00 Pulse 103 H 04/16/21 12:00 Resp 16 04/16/21 12:00 BP 99/56 04/16/21 12:00 Pulse Ox 94 04/16/21 12:00 04/15/21 04/16/21 04/16/21 22:59 06:59 14:59 Intake Total 891.25 / 996.25 Output Total 1000 / 1000 700 / 1700 Balance -108.75 / -3.75 -700 / -703.75 Weight last 48 hrs Weight 52.163 kg Weight 52.163 kg Physical Exam Const: COMMON NORMALS: no acute distress GENERAL APPEARANCE: frail ap pearing ORIENTATION/CONSCIOUSNESS: Yes awake HENMT: COMMON NORMALS: oropharynx normal NOSE: Other nasal findings present (NGT) Neck/C-Spine: COMMON NORMALS: no JVD Resp: COMMON NORMALS: normal respiratory effort and clear to auscultation bilaterally AUSCULTATION: clear to auscultation bilaterally OTHER: few faint rhonchi Cardio: COMMON NORMALS: no JVD, regular rhythm, S1 normal heart sound present, S2 normal heart sound present and No murmurs present (Cardio) RHYTHM: regular rhythm HEART SOUNDS: S1 normal heart sound present and S2 normal heart sound present GI: COMMON NORMALS: Normal to inspection, nondistended, normoactive bowel sounds present, Soft to palpation and non-tender PALPATION: Yes Soft to palpation Extremity: COMMON NORMALS: no joint enlargement and no pedal edema Neuro: COMMON NORMALS: moves all extremities Skin: COMMON NORMALS: no rashes or lesions noted GENERAL SKIN EXAM: no rashes or lesions noted Data : 04/16/21 06:13 04/16/21 06:13 Micro: Microbiology 04/15/21 08:12 Blood Culture - Preliminary Blood NEGATIVE TO DATE 04/15/21 08:12 Blood Culture - Preliminary Blood NEGATIVE TO DATE 04/16/21 01:30 C.difficile Toxin B Gene (PCR) - Final Stool Routine Collection A&P Assessment and plan (1) Small bowel obstruction: Appreciate surgery recommendations. For now continue conservative management, NGT decompression. 700 mL from NGT last night. 200 mL this morning. Bowel rest. IVF d5 NS @ 75cc/hr Electrolytes currently in range Prn zofran for nausea vomiting Blood cx from 04/08 noted to have Cons+ 3/3 bottles, suspect contaminnat however given presence of vagus nerve stimulator culture was repeated. So far no growth on preliminary. Mother request to discontinue antibiotic unless something grows on repeat culture. Status: Acute Additional A&P Information Loose stool: Diffuse fluid distention of bowel progressive since 04/08/2021, bowel thickening decreased. Prior CT findings suggestive of gastroenterocolitis. Loose bowel movement last night. C. difficile negative. Will request stool culture, ova and parasite. Productive cough: Mother reports recurrent/protracted respiratory infection. At this time sounds like bronchitis, but will assess chest x-ray. Guaifenesin. Flutter valve. Attestations Medical Necessity Statement*: Continue admission for assessment management of enteritis with possible partial SBO. 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
--- NOTE | 2021-04-16 14:21 | XR_ITS ---
WS: [id number] Exam: XR chest 1V portable [id number] Date/Time of Exam: 04/16/2021 2:21 PM Reason For Exam: productive cough, assess if pna Comparison 04/15/2021. The lungs remain clear and fully expanded. Normal cardiomediastinal silhouette. An NG tube ends in th e stomach in satisfactory position. A neurostimulator pack superimposes the left chest in the leads e xtend into the lower left neck region. Bony structures are intact. No pleural effusions. Old left cla vicle fracture. XR/XR chest 1V portable [id number] IMPRESSION: 1. No acute cardiopulmonary finding. No change.
--- NOTE | 2021-04-16 15:55 | PC.NURSE ---
END OF SHIFT SUMMARY NG REMAINS TO LIS WITH RETURN OF BROWN LIQUID - PT HAS BEEN INCONTINENT OF URINE THROUGHOUT SHIFT - CHANGED AND REPOSITIONED MULTIPLE TIMES PER MOM AND STAFF - ABD REMAINS SOFT WITH BS NOTED - IV PATENT - DID APPLY 2LNC EARLIER DUE TO SATS AT APPROX 88-89% - CHEST X RAY DONE PER DR SANTOS ORDER - ALSO NOTIFIED OF CONGESTED COUGH - MOM STATES THIS HAS BEEN OFF AND ON FOR A FEW WEEKS
[2021-04-16] MEDS: valproic acid 250 mg/5 mL UDC 625 MG PO (16:09)
--- NOTE | 2021-04-16 16:16 | PC.NURSE ---
NG NG TUBE BOLUSED WITH AIR TO VERIFY PLACEMENT PRIOR TO ADMINISTRATION OF VALPORIC ACID - POSITIVE PLACEMENT NOTED - NG CLAMPED - PT UP IN CHAIR - NOTED STRONG COUGH - NO SPUTUM UP - FAMILY AT SIDE
[2021-04-16] MEDS: dextrose 5%-sod chloride 0.9% 1,000 ML 75 ML IV (16:58)
--- NOTE | 2021-04-17 00:44 | PC.NURSE ---
Patient was noted to have bright red blood in his NG tube, this nurse called Dr. Gonzalez and received an order to turn of the suctioning for his NG tube.
[2021-04-17] MEDS: pantoprazole 40 mg SDV IVP ×2 (01:36→14:00)
[2021-04-17 04:00] VITALS: BP 105/64; PULSE 109; RESP 18; TEMP 36.6; O2SAT 90
[2021-04-17 06:21] LABS: Basophils % 0.4 %; Hematocrit 32.5 % (42.0-52.0); Hemoglobin 10.6 g/dL (11.7-16.6); Lymphocytes # 1.3 10^3/uL (0.8-4.8); Lymphocytes % 11.4 %; Mean Corpuscular HGB Conc 32.6 g/dL (30.0-36.0); Mean Corpuscular Hemoglobin 32.7 pg (28.0-34.0); Mean Corpuscular Volume 100.3 fl (80-94); Mean Platelet Volume 8.6 fL (7.4-10.4); Monocytes # 1.5 10^3/uL (0.2-0.9); Monocytes % 13.1 %; Neutrophils # 8.33 10^3/uL (1.8-7.7); Neutrophils % 74.3 %; Nucleated Red Blood Cells % 0 %; Platelet Count 459 10^3/cmm (130-400); Red Blood Count 3.24 10^6/uL (4.1-5.3); Red Cell Distribution Width 14.6 % (12.1-15.1); White Blood Count 11.2 10^3/uL (4.0-10.0)
[2021-04-17 06:34] LABS: Anion Gap 15.1 (5-19); Blood Urea Nitrogen 5 mg/dL (6-20); Carbon Dioxide 27 mmol/L (22-29); Chloride 104 mmol/L (98-107); Glomerular Filtration Rate 359.6 mL/min (90-130); Glucose 90 mg/dL (65-115); Osmolality Calculated 293 mOsm/kg (285-295); Potassium 3.1 mmol/L (3.5-5.1); Sodium 143 mmol/L (136-145)
[2021-04-17 07:26] VITALS: BP 101/58; PULSE 115; RESP 17; TEMP 36.6; O2SAT 91
--- NOTE | 2021-04-17 08:06 | PM.PN ---
Subjective Subjective: Interval history: The patient's mother reports no more bowel movements yesterday. There was apparently some thought that his nasogastric tube drainage was somewhat red last night and so the suction was stopped and his Lovenox was also held. Vitals/I&O/Wt Last Vital Signs Temp 97.9 F 04/17/21 07:26 Pulse 115 H 04/17/21 07:26 Resp 17 04/17/21 07:26 BP 101/58 04/17/21 07:26 Pulse Ox 91 04/17/21 07:26 04/16/21 04/17/21 04/17/21 22:59 06:59 14:59 Output Total 800 / 1200 400 / 1200 Balance -800 / -1200 -400 / -1200 Physical Exam Narrative: EXAM NARRATIVE: The patient appears comfortable. I turned his nasogastric suction back on and there was minimal return of fluid. Bowel sounds are present and his abdomen does not exhibit any significant tenderness. Data : 04/17/21 05:06 04/17/21 05:06 Micro: Microbiology 04/15/21 08:12 Blood Culture - Preliminary Blood NEGATIVE TO DATE 04/15/21 08:12 Blood Culture - Preliminary Blood NEGATIVE TO DATE 04/16/21 01:30 C.difficile Toxin B Gene (PCR) - Final Stool Routine Collection A&P Assessment and plan (1) Enteritis: CT reviewed. I agree that the patient had some dilated loops of small bowel but appeared as if he had fluid throughout his intestinal tract, perhaps more consistent with enteritis/ileus as opposed to a mechanical obstruction. The patient's nasogastric tube has been clamped since last night and it does not appear as if there was any fluid building up in his stomach as evidenced by no return on reconnecting the nasogastric tube to suction. I think it would be reasonable to try some clear liquids to see how the patient tolerates this and his mother would like to try to leave the nasogastric tube in until we are fairly certain they can be safely removed. Keep nasogastric tube clamped for now. Continue to hold Lovenox. Clear liquid diet. SCDs/RAHAT marie Status: Acute Attestations Medical Necessity Statement*: See admitting service's notation. 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
[2021-04-17] MEDS: levothyroxine 50 mcg Tablet PO (09:10)
[2021-04-17] MEDS: valproic acid 250 mg/5 mL UDC 750 MG PO ×2 (09:23→21:09)
[2021-04-17] MEDS: RUFINAMIDE 400 MG 1200 EACH PO ×2 (10:00→21:10)
[2021-04-17 11:34] VITALS: BP 104/68; PULSE 95; RESP 16; TEMP 36.6; O2SAT 97
[2021-04-17] MEDS: dextrose 5%-sod chloride 0.9% 1,000 ML 75 ML IV (14:00)
--- NOTE | 2021-04-17 14:09 | P.PN_ITS ---
Subjective Subjective: Interval history: Remember that he is awake, denies pain, although later when being uncovered for auscultation says ow . Then again when trying to examine his abdomen. However, says that even when he is not touched. Mother states that he intermittently does says that when he does not want to be bothered. He otherwise appears comfortable. This morning episode of brief self-limited seizure. Prescription with his mother, intermittently gets breakthrough seizures despite 2 medications and vagal nerve stimulator. Follows with neurology in [place]. Vitals/I&O/Wt Last Vital Signs Temp 97.8 F 04/17/21 11:34 Pulse 95 04/17/21 11:34 Resp 16 04/17/21 11:34 BP 104/68 04/17/21 11:34 Pulse Ox 97 04/17/21 11:34 04/16/21 04/17/21 04/17/21 22:59 06:59 14:59 Intake Total 1000 / 1000 Output Total 800 / 800 400 / 1200 Balance -800 / -800 -400 / -1200 1000 / 1000 Physical Exam Const: COMMON NORMALS: no acute distress GENERAL APPEARANCE: frail appearing ORIENTATION/CONSCIOUSNESS: Yes awake HENMT: COMMON NORMALS: oropharynx normal NOSE: Other nasal findings present (NGT) Neck/C-Spine: COMMON NORMALS: no JVD Resp: COMMON NORMALS: normal respiratory effort and clear to auscultation bilaterally AUSCULTATION: clear to auscultation bilaterally OTHER: few faint rhonchi Cardio: COMMON NORMALS: no JVD, regular rhythm, S1 normal heart sound present, S2 normal heart sound present and No murmurs present (Cardio) RHYTHM: regular rhythm HEART SOUNDS: S1 normal heart sound present and S2 normal heart sound present GI: COMMON NORMALS: Normal to inspection, nondistended, normoactive bowel sounds present, Soft to palpation and non-tender PALPATION: Yes Soft to palpa tion Extremity: COMMON NORMALS: no joint enlargement and no pedal edema Neuro: COMMON NORMALS: moves all extremities Skin: COMMON NORMALS: no rashes or lesions noted GENERAL SKIN EXAM: no rashes or lesions noted Data : 04/17/21 05:06 04/17/21 05:06 Micro: Microbiology 04/15/21 08:12 Blood Culture - Preliminary Blood NEGATIVE TO DATE 04/15/21 08:12 Blood Culture - Preliminary Blood NEGATIVE TO DATE A&P Assessment and plan (1) Small bowel obstruction: Due to some reddish/brown NGT contents this morning, NGT suction turned off, tube clamped, Lovenox held. Started on IV PPI. Abdomen remains flat. So far no nausea or vomiting. Surgery assessment appreciated. Trial of clear liquids. IVF d5 NS @ 75cc/hr Replace hypokalemia Prn zofran for nausea vomiting Blood cx from 04/08 noted to have Cons+ 3/3 bottles, suspect contaminnat however given presence of vagus nerve stimulator culture was repeated. So far no growth on preliminary. Mother request to discontinue antibiotic unless something grows on repeat culture. Vancomycin was stopped. Status: Acute Additional A&P Information Breakthrough seizure: Brief, self-limited seizure this morning. Intermittent breakthrough seizures. Follows with neurology. Will check lipoic acid level. Loose stool: Diffuse fluid distention of bowel progressive since 04/08/2021, bowel thickening decreased. Prior CT findings suggestive of gastroenterocolitis. Loose bowel movement 04/16. C. difficile negative. Requested stool culture, ova and parasite. Acute bronchitis: No evidence of pneumonia on x-ray. Less cough today, but still some rhonchi. Continue guaifenesin. Flutter valve. Attestations Medical Necessity Statement*: Continue admission for assessment management of enterocolitis, possible partial SBO, acute bronchitis, breakthrough seizure in a young gentleman with underlying neurocognitive disorder with communication difficulty. 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
[2021-04-17 15:15] LABS: Valproic Acid Level 40.5 ug/mL (50-100)
[2021-04-17 16:00] VITALS: BP 100/68; PULSE 128; RESP 18; TEMP 36.5; O2SAT 89
[2021-04-17] MEDS: lidocaine 1% 5 ML in potassium chloride premix 100 ML 50 ML IV (16:34)
[2021-04-17] MEDS: valproic acid 250 mg/5 mL UDC 625 MG PO (16:36)
[2021-04-17 20:00] VITALS: BP 102/62; PULSE 110; RESP 18; TEMP 36.8; O2SAT 93
[2021-04-17 23:36] VITALS: BP 95/54; PULSE 108; RESP 18; TEMP 36.6; O2SAT 95
[2021-04-18] MEDS: pantoprazole 40 mg SDV IVP ×2 (00:25→16:09)
[2021-04-18] MEDS: dextrose 5%-sod chloride 0.9% 1,000 ML 100 ML IV (01:53)
[2021-04-18 04:00] VITALS: BP 105/62; PULSE 98; RESP 18; TEMP 36.4; O2SAT 96
[2021-04-18 05:24] LABS: Basophils % 0.3 %; Hematocrit 31.1 % (42.0-52.0); Hemoglobin 10.1 g/dL (11.7-16.6); Lymphocytes # 1.6 10^3/uL (0.8-4.8); Lymphocytes % 16.3 %; Mean Corpuscular HGB Conc 32.5 g/dL (30.0-36.0); Mean Corpuscular Volume 101.6 fl (80-94); Mean Platelet Volume 8.4 fL (7.4-10.4); Monocytes % 10.3 %; Neutrophils # 7.09 10^3/uL (1.8-7.7); Nucleated Red Blood Cells % 0 %; Platelet Count 472 10^3/cmm (130-400); Red Blood Count 3.06 10^6/uL (4.1-5.3); Red Cell Distribution Width 14.8 % (12.1-15.1); White Blood Count 9.9 10^3/uL (4.0-10.0)
[2021-04-18 05:51] LABS: Anion Gap 14.2 (5-19); Blood Urea Nitrogen 7 mg/dL (6-20); Calcium 7.7 mg/dL (8.5-10.5); Carbon Dioxide 24 mmol/L (22-29); Chloride 108 mmol/L (98-107); Glomerular Filtration Rate 574.2 mL/min (90-130); Glucose 90 mg/dL (65-115); Magnesium 1.6 mg/dL (1.7-2.3); Osmolality Calculated 294 mOsm/kg (285-295); Potassium 3.2 mmol/L (3.5-5.1); Sodium 143 mmol/L (136-145)
--- NOTE | 2021-04-18 06:49 | PM.PN ---
Subjective Subjective: Interval history: The patient's mother says his nasogastric tube has been clamped since yesterday. He had another bowel movement during the night. Vitals/I&O/Wt Last Vital Signs Temp 97.5 F L 04/18/21 04:00 Pulse 98 04/18/21 04:00 Resp 18 04/18/21 04:00 BP 105/62 04/18/21 04:00 Pulse Ox 96 04/18/21 04:00 04/17/21 04/17/21 04/18/21 14:59 22:59 06:59 Intake Total 1120 / 2331.667 750 / 2331.667 461.667 / 2331.667 Balance 1120 / 2331.667 750 / 2331.667 461.667 / 2331.667 Physical Exam Narrative: EXAM NARRATIVE: The abdomen remains soft. I hooked the nasogastric tube back up to suction this morning and there was no return. Data : 04/18/21 04:54 04/18/21 04:54 A&P Assessment and plan (1) Enteritis: CT reviewed. I agree that the patient had some dilated loops of small bowel but appeared as if he had fluid throughout his intestinal tract, perhaps more consistent with enteritis/ileus as opposed to a mechanical obstruction. The patient's nasogastric tube will be removed. Continue clear liquids. Replace potassium. Status: Acute Attestations Medical Necessity Statement*: See admitting service's notation. Coding Level of Care Code Acute Aquatic Instructor for Bebeto Brambila Diagnoses Enteritis K52.9
[2021-04-18 08:00] VITALS: BP 100/66; PULSE 101; RESP 18; TEMP 36.2; O2SAT 93
[2021-04-18] MEDS: dextrose 5%-ns + KCl 40 40 MEQ/1,000 ML BAG 100 MEQ IV ×2 (08:34→21:34)
[2021-04-18] MEDS: valproic acid 250 mg/5 mL UDC 750 MG PO (08:40)
[2021-04-18] MEDS: magnesium sulfate premix 2 GM/50 ML PIGGYBACK IV (08:52)
[2021-04-18] MEDS: RUFINAMIDE 400 MG 1200 EACH PO (10:15)
[2021-04-18 12:00] VITALS: BP 99/65; PULSE 98; RESP 18; TEMP 36.4; O2SAT 97
--- NOTE | 2021-04-18 15:18 | P.PN_ITS ---
Subjective Subjective: Interval history: He has been doing better. No nausea, no vomiting. NGT removed. Tolerating clear liquids. Advancing to GI soft. She is trying ice cream for to him by his mom. Discussed consideration of slow advancement of diet. Small months of food spaced out, consideration of additional protein shakes until reestablishes more usual pattern of oral intake. Vitals/I&O/Wt Last Vital Signs Temp 97.6 F 04/18/21 12:00 Pulse 98 04/18/21 12:00 Resp 18 04/18/21 12:00 BP 99/65 04/18/21 12:00 Pulse Ox 97 04/18/21 12:00 04/18/21 04/18/21 04/18/21 06:59 14:59 22:59 Intake Total 461.667 / 2331.667 1200 / 1200 Balance 461.667 / 2331.667 1200 / 1200 Physical Exam Const: COMMON NORMALS: no acute distress GENERAL APPEARANCE: comfortable and frail appearing ORIENTATION/CONSCIOUSNESS: Yes awake OTHER: Nonverbal at baseline apart from occasional one-word statements. HENMT: COMMON NORMALS: oropharynx normal NOSE: Other nasal findings present (NGT) Neck/C-Spine: COMMON NORMALS: no JVD Resp: COMMON NORMALS: normal respiratory effort and clear to auscultation bilaterally AUSCULTATION: clear to auscultation bilaterally OTHER: Occasional cough Cardio: COMMON NORMALS: no JVD, regular rhythm, S1 normal heart sound present, S2 normal heart sound present and No murmurs present (Cardio) RHYTHM: regular rhythm HEART SOUNDS: S1 normal heart sound present and S2 normal heart sound present GI: COMMON NORMALS: Normal to inspection, nondistended, normoactive bowel sounds present, Soft to palpation and non-tender PALPATION: Yes Soft to palpation Extremity: COMMON NORMALS: no joint enlargement and no pedal edema Neuro: COMMON NORMALS: moves all extremities Skin: COMMON NORMALS: no rashes or lesions noted GENERAL SKIN EXAM: no rashes or lesions noted Data : 04/18/21 04:54 04/18/21 04:54 A&P Assessment and plan (1) Small bowel obstruction: So far resolved, advancing on diet. NG tube removed this morning. Advancing to GI soft slowly. Electrolytes replaced this morning. He is given prescription of supplementation, and discharge is prepared, however, patient's family would like to appeal to monitor further and make sure he is doing okay and leave tomorrow. Discussed with nursing staff, front desk associate staff, case management, they will assist family with the paperwork. Slowly advance diet. Recheck potassium, magnesium level. Additional supplementation if needed. Continue PPI due to reddish/brown discharge several days ago from NGT, complete 6-week course of PPI. Follow-up reassessment with primary provider. Prn zofran for nausea vomiting Blood cx from 04/08 noted to have Cons+ 3/3 bottles, suspect contaminnat however given presence of vagus nerve stimulator culture was repeated. So far no growth on preliminary. Mother request to discontinue antibiotic unless something grows on repeat culture. Vancomycin was stopped. Status: Acute Additional A&P Information Breakthrough seizure: Brief, self-limited seizure episode in the hospital. Valproic acid level checked, low at 40.5. Discussed with his neurologist. Will give additional loading dose of 300 mg IV Depacon. After that recommended continue his usual dosing. Continue follow-up with neurology. Loose stool: Resolved. Had a bowel movement today. Not diarrhea. Diffuse fluid distention of bowel progressive since 04/08/2021, bowel thickening decreased. Prior CT findings suggestive of gastroenterocolitis. Loose bowel movement 04/16. C. difficile negative. Requested stool culture, ova and parasite. Acute bronchitis: No evidence of pneumonia on x-ray. Cough improving. Rhonchi resolved. Continue guaifenesin. Flutter valve. Attestations Medical Necessity Statement*: Discharge home arranged, family would like to appeal, continue additional monitoring, recheck electrolyte level, will revisit again tomorrow. Coding Level of Care Code Acute Associate Professor Of Philosophy for [facility] Exam Comprehensive Diagnoses Small bowel obstruction K56.609
--- NOTE | 2021-04-18 15:50 | XRR_ITS ---
PROCEDURE INFORMATION: Exam: XR Abdomen Exam date and time: 04/18/2021 3:50 PM Age: 26 years old Clinical indication: Patient HX: Cough, vomiting TECHNIQUE: Imaging protocol: XR of the abdomen. Views: 2 Views. Upright and supine views. COMPARISON: CT abdomen pelvis w con* [id number] 04/14/2021 10:52 PM FINDINGS: Gastrointestinal tract: Normal. No bowel dilation. Intraperitoneal space: Normal. No free air. Bones/joints: Unremarkable for age. XR/XR acute abdomen series [id number] IMPRESSION: No acute findings.
[2021-04-18 16:00] VITALS: BP 110/74; PULSE 99; RESP 18; O2SAT 88
[2021-04-18] MEDS: ondansetron 2 mg/ML SDV 2 mL 4 MG IVP (16:03)
[2021-04-18] MEDS: VALPROIC ACID IV (16:10)
[2021-04-18] MEDS: SODIUM CHLORIDE 0.9% IV (16:10)
[2021-04-18 17:49] LABS: Magnesium 1.9 mg/dL (1.7-2.3); Potassium 3.7 mmol/L (3.5-5.1)
[2021-04-18 20:00] VITALS: BP 99/64; PULSE 90; RESP 18; TEMP 36.3; O2SAT 97
[2021-04-18] MEDS: divalproex Sprinkles 125 mg Capsule 750 MG PO (21:38)
[2021-04-19] MEDS: pantoprazole 40 mg SDV IVP ×2 (02:59→16:36)
[2021-04-19 04:00] VITALS: BP 97/58; PULSE 92; RESP 17; TEMP 36.5; O2SAT 97
[2021-04-19 06:40] LABS: Basophils % 0.6 %; Eosinophils # 0.1 10^3/uL (0.0-0.8); Hematocrit 32.7 % (42.0-52.0); Hemoglobin 9.8 g/dL (11.7-16.6); Lymphocytes # 1.5 10^3/uL (0.8-4.8); Lymphocytes % 20.6 %; Mean Corpuscular Hemoglobin 32.1 pg (28.0-34.0); Mean Corpuscular Volume 107.2 fl (80-94); Monocytes # 0.6 10^3/uL (0.2-0.9); Monocytes % 8.5 %; Neutrophils % 67.7 %; Nucleated Red Blood Cells % 0 %; Platelet Count 467 10^3/cmm (130-400); Red Blood Count 3.05 10^6/uL (4.1-5.3); Red Cell Distribution Width 15.1 % (12.1-15.1); White Blood Count 7.1 10^3/uL (4.0-10.0)
[2021-04-19 07:11] LABS: Anion Gap 14.4 (5-19); Blood Urea Nitrogen 6 mg/dL (6-20); Calcium 7.9 mg/dL (8.5-10.5); Carbon Dioxide 25 mmol/L (22-29); Chloride 107 mmol/L (98-107); Glomerular Filtration Rate 574.2 mL/min (90-130); Glucose 87 mg/dL (65-115); Osmolality Calculated 291 mOsm/kg (285-295); Potassium 4.4 mmol/L (3.5-5.1); Sodium 142 mmol/L (136-145)
[2021-04-19 07:24] LABS: Magnesium 1.9 mg/dL (1.7-2.3)
[2021-04-19 08:00] VITALS: BP 102/66; PULSE 88; RESP 18; TEMP 36.7; O2SAT 96
--- NOTE | 2021-04-19 08:50 | P.PN_ITS ---
Subjective Subjective: Interval history: Arrangements were apparently being made for the patient to be discharged yesterday, as he was tolerating an oral diet, but then he started vomiting again. His mother says he has not had any obvious vomiting today but he seems to gag when he tries to swallow his medications. Vitals/I&O/Wt Last Vital Signs Temp 98.0 F 04/19/21 08:00 Pulse 88 04/19/21 08:00 Resp 18 04/19/21 08:00 BP 102/66 04/19/21 08:00 Pulse Ox 96 04/19/21 08:00 04/18/21 04/19/21 04/19/21 22:59 06:59 14:59 Intake Total 1000 / 2200 Balance 1000 / 2200 Physical Exam Narrative: EXAM NARRATIVE: Abdomen remains soft. Data : 04/19/21 05:16 04/19/21 05:16 KUB: Radiologist's impression: KUB 04/18/2021 IMPRESSION: No acute findings. A&P Assessment and plan (1) Enteritis: CT on presentation reviewed. I agree that the patient had some dilated loops of small bowel but appeared as if he had fluid throughout his intestinal tract, perhaps more consistent with enteritis/ileus as opposed to a mechanical obstruction. Discussed with Dr. Vogel. He has indicated he might get speech therapy involved to assess the patient swallowing. Status: Acute Attestations Medical Necessity Statement*: See admitting service's notation. Coding Level of Care Code Acute Inclusion Specialist for [facility] Diagnoses Enteritis K52.9
[2021-04-19] MEDS: ondansetron 2 mg/ML SDV 2 mL 4 MG IVP (11:05)
[2021-04-19] MEDS: metoclopramide oral liquid 5 mg/5 mL (ml) PO ×2 (11:54→16:39)
[2021-04-19 12:00] VITALS: BP 108/73; PULSE 105; RESP 18; O2SAT 95
[2021-04-19] MEDS: dextrose 5%-ns + KCl 40 40 MEQ/1,000 ML BAG 100 MEQ IV ×2 (12:57→23:13)
[2021-04-19] MEDS: divalproex Sprinkles 125 mg Capsule 750 MG PO ×2 (13:02→20:36)
--- NOTE | 2021-04-19 13:48 | PC.CHAP ---
Pastoral Care Encounter/Spiritual Assessment Type of Contact [xx] Declined hand chain maker visit [] Patient/Family/Request visit [] Outpatient visit [xx] Follow-up visit [] Physician referral [] Code/Alert [xx] Routine visit [] Staff referral [] Actively dying [] Patient sleeping [] Family support [] [] Out of room [] Palliative care [] [] Receiving care in room [] Pre-surgical visit [] Trauma [] Long length of stay [] ICU visit [] Other: Relational/Emotional Strength [xx] Patient feels connected with others/family/visitors/staff [xx] Distress [] Loneliness/isolation [] Abandonment Spirituality of Patient [] Person of Lupe [] Attends Anabaptism of their Lupe [] Believes in Prayer [] Reads Bible or Bahai materials [] There are Spiritual issues to be addressed Rand Sewer Interventions [] Prayer [xx] Active listening [xx] Non-anxious presence [] Spiritual/emotional support [] Crisis/trauma care [] Spiritual counseling [] Bereavement support [] Provided bereavement packet [xx] Provided Bible/devotional materials [] Provided toy/stuffed animal, coloring book to patient or family member [] Provided Communion [] Anointing/[place] [] Salvation [xx] Completed spiritual assessment [] Other: Impact on Illness or Injury [] Angry [] Fearful [] Anxious [] Often cries [] Exhaustion [] Unable to work [] Unable to attend latter-day [xx] Unable to walk/stand [] Unable to read [] Unable to drive [xx] Unable to eat/drink [] Unable to sleep [] Unable to be with family [] Patient intubated [] Other: Summary Patient's mom and brother were present with patient. Patient was in pain and somewhat distraught. Relatives said they were there to care for him but now was not a good time for a pastoral visit due to patient's current mental/physical status. Rand Sewer gave [employer] to the brother before leaving. Time spent with patient 2 minutes
[2021-04-19 15:30] VITALS: BP 109/73; PULSE 93; RESP 18; TEMP 36.4; O2SAT 97
--- NOTE | 2021-04-19 19:20 | P.PN_ITS ---
Subjective Subjective: Interval history: Vomited last night shortly after eating some ice cream and then receiving Depakote sprinkles. Mother denies dysphagia or cough after food or drink. Vitals/I&O/Wt Last Vital Signs Temp 97.5 F L 04/19/21 15:30 Pulse 93 04/19/21 15:30 Resp 18 04/19/21 15:30 BP 109/73 04/19/21 15:30 Pulse Ox 97 04/19/21 15:30 04/19/21 04/19/21 04/19/21 06:59 14:59 22:59 Intake Total 1480 / 1480 Balance 1480 / 1480 Physical Exam Narrative: EXAM NARRATIVE: Family at bedside. Const: COMMON NORMALS: no acute distress GENERAL APPEARANCE: comfortable and frail appearing ORIENTATION/CONSCIOUSNESS: Yes awake OTHER: Up in the chair. Nonverbal at baseline apart from occasional one-word statements. HENMT: COMMON NORMALS: oropharynx normal NOSE: Other nasal findings present (NGT) Neck/C-Spine: COMMON NORMALS: no JVD Resp: COMMON NORMALS: normal respiratory effort and clear to auscultation bilaterally AUSCULTATION: clear to auscultation bilaterally OTHER: Occas ional cough Cardio: COMMON NORMALS: no JVD, regular rhythm, S1 normal heart sound present, S2 normal heart sound present and No murmurs present (Cardio) RHYTHM: regular rhythm HEART SOUNDS: S1 normal heart sound present and S2 normal heart sound present GI: COMMON NORMALS: Normal to inspection, nondistended, normoactive bowel sounds present, Soft to palpation and non-tender PALPATION: Yes Soft to palpation Extremity: COMMON NORMALS: no joint enlargement and no pedal edema Neuro: COMMON NORMALS: moves all extremities Skin: COMMON NORMALS: no rashes or lesions noted GENERAL SKIN EXAM: no rashes or lesions noted Data : 04/19/21 05:16 04/19/21 05:16 A&P Assessment and plan (1) Gastroenteritis: Additional episode of vomiting yesterday after trial of advancement of diet. Less likely made NPO. Additional assessment by obstructive series x-ray which was normal. Discussed with his family today, will try again slowly with clear liquids, with gastroenteritis, possibly nausea, gastric sensitivity, adding sucralfate, Reglan. Continue PPI due to reddish/brown discharge several days ago from NGT, complete 6-week course of PPI. Follow-up reassessment with primary provider. Status: Acute (2) Small bowel obstruction: Resolved. Prn zofran for nausea vomiting Blood cx from 04/08 noted to have Cons+ 3/3 bottles, suspect contaminnat however given presence of vagus nerve stimulator culture was repeated. So far no growth on preliminary. Mother request to discontinue antibiotic unless something grows on repeat culture. Vancomycin was stopped. Status: Acute Additional A&P Information Breakthrough seizure: Brief, self-limited seizure episode in the hospital. Valproic acid level checked, low at 40.5. Discussed with his neurologist. Given loading dose of 300 mg IV Depacon. After that recommended continue his u sual dosing. Continue follow-up with neurology. Loose stool: Resolved. Had a bowel movement today. Not diarrhea. Diffuse fluid distention of bowel progressive since 04/08/2021, bowel thickening decreased. Prior CT findings suggestive of gastroenterocolitis. Loose bowel movement 04/16. C. difficile negative. Requested stool culture, ova and parasite. Acute bronchitis: No evidence of pneumonia on x-ray. Cough improving. Rhonchi resolved. Continue guaifenesin. Flutter valve. Attestations Medical Necessity Statement*: Continue admission for assessment management of gastroenteritis following resolved partial SBO until able to establish oral intake. Coding Level of Care Code Acute Eyeglass Frames Polisher for Bebeto Brambila Diagnoses Gastroenteritis K52.9 Small bowel obstruction K56.609
[2021-04-19 20:00] VITALS: BP 115/77; PULSE 105; RESP 22; TEMP 36.4; O2SAT 96
[2021-04-19] MEDS: sucralfate 1 gm Tablet PO (20:35)
[2021-04-20] MEDS: pantoprazole 40 mg SDV IVP (02:53)
[2021-04-20 04:00] VITALS: BP 97/59; PULSE 89; RESP 18; TEMP 36.5; O2SAT 98
[2021-04-20 05:56] LABS: Basophils # 0.1 10^3/uL (0.0-0.1); Basophils % 0.8 %; Eosinophils # 0.2 10^3/uL (0.0-0.8); Eosinophils % 2.9 %; Hemoglobin 10.7 g/dL (11.7-16.6); Lymphocytes # 1.8 10^3/uL (0.8-4.8); Lymphocytes % 25.6 %; Mean Corpuscular HGB Conc 31.5 g/dL (30.0-36.0); Mean Corpuscular Volume 101.8 fl (80-94); Mean Platelet Volume 8.8 fL (7.4-10.4); Monocytes # 0.7 10^3/uL (0.2-0.9); Monocytes % 9.9 %; Neutrophils # 4.27 10^3/uL (1.8-7.7); Neutrophils % 59.4 %; Nucleated Red Blood Cells % 0 %; Platelet Count 561 10^3/cmm (130-400); Red Blood Count 3.34 10^6/uL (4.1-5.3); Red Cell Distribution Width 14.6 % (12.1-15.1); White Blood Count 7.2 10^3/uL (4.0-10.0)
[2021-04-20 06:11] LABS: Anion Gap 11.2 (5-19); Blood Urea Nitrogen 4 mg/dL (6-20); Calcium 8.2 mg/dL (8.5-10.5); Carbon Dioxide 27 mmol/L (22-29); Chloride 101 mmol/L (98-107); Glomerular Filtration Rate 359.6 mL/min (90-130); Glucose 86 mg/dL (65-115); Magnesium 1.6 mg/dL (1.7-2.3); Osmolality Calculated 276 mOsm/kg (285-295); Potassium 4.2 mmol/L (3.5-5.1); Sodium 135 mmol/L (136-145)
[2021-04-20] MEDS: metoclopramide oral liquid 5 mg/5 mL (ml) PO ×3 (06:12→16:53)
[2021-04-20] MEDS: sucralfate 1 gm Tablet PO ×4 (06:12→20:49)
[2021-04-20 07:28] VITALS: BP 101/53; PULSE 94; RESP 18; TEMP 36.3; O2SAT 95
[2021-04-20] MEDS: divalproex Sprinkles 125 mg Capsule 750 MG PO ×2 (08:24→20:50)
[2021-04-20] MEDS: dextrose 5%-ns + KCl 40 40 MEQ/1,000 ML BAG 100 MEQ IV (08:24)
[2021-04-20] MEDS: levothyroxine 50 mcg Tablet PO (08:24)
[2021-04-20] MEDS: RUFINAMIDE 400 MG 1200 EACH PO ×2 (08:27→16:55)
--- NOTE | 2021-04-20 09:05 | PM.PN ---
Subjective Subjective: Interval history: The patient's mother says he is doing well. He appears to be tolerating clear liquids this morning. He apparently did not get a clear liquid tray last night. She would like to see how he does with this before his diet is advanced. Vitals/I&O/Wt Last Vital Signs Temp 97.4 F L 04/20/21 07:28 Pulse 94 04/20/21 07:28 Resp 18 04/20/21 07:28 BP 101/53 04/20/21 07:28 Pulse Ox 95 04/20/21 07:28 04/19/21 04/20/21 04/20/21 22:59 06:59 14:59 Intake Total 1000 / 2540 60 / 2540 918.333 / 918.333 Balance 1000 / 2540 60 / 2540 918.333 / 918.333 Physical Exam Narrative: EXAM NARRATIVE: No significant change. Data : 04/20/21 04:38 04/20/21 04:38 Micro: Microbiology 04/15/21 08:12 Blood Culture - Final Blood NO GROWTH AFTER 5 DAYS 04/15/21 08:12 Blood Culture - Final Blood NO GROWTH AFTER 5 DAYS A&P Assessment and plan (1) Enteritis: CT on presentation reviewed. I agree that the patient had some dilated loops of small bowel but appeared as if he had fluid throughout his intestinal tract, perhaps more consistent with enteritis/ileus as opposed to a mechanical obstruction. Appears to be doing well this morning. Advance diet as tolerated. Status: Acute Attestations Medical Necessity Statement*: See admitting service's notation. Coding Level of Care Code Acute Automotive Lube Technician for Bebeto Brambila Diagnoses Enteritis K52.9
--- NOTE | 2021-04-20 10:01 | PC.SOCIAL ---
IMM update Discussed medicare rights with patient's family, verbalized understanding. Provided them with a copy and initialed, timed, and dated copy in patient's chart.
[2021-04-20 12:00] VITALS: BP 104/71; PULSE 93; RESP 18; TEMP 36.4; O2SAT 93
[2021-04-20] MEDS: divalproex Sprinkles 125 mg Capsule 625 MG PO (14:20)
[2021-04-20 15:20] VITALS: BP 118/75; PULSE 87; RESP 18; TEMP 36.4; O2SAT 98
[2021-04-20] MEDS: pantoprazole DR 40 mg Tablet PO (16:53)
--- NOTE | 2021-04-20 18:03 | PM.PN ---
Subjective Subjective: Interval history: Family are at bedside. He is sitting up in bed. Nonverbal. He states has not eaten much, although did keep down his medications. Vitals/I&O/Wt Last Vital Signs Temp 97.6 F 04/20/21 15:20 Pulse 87 04/20/21 15:20 Resp 18 04/20/21 15:20 BP 118/75 04/20/21 15:20 Pulse Ox 98 04/20/21 15:20 04/20/21 04/20/21 04/20/21 06:59 14:59 22:59 Intake Total 60 / 2540 1338.333 / 1338.333 Balance 60 / 2540 1338.333 / 1338.333 Physical Exam Narrative: EXAM NARRATIVE: Family at bedside. Const: COMMON NORMALS: no acute distress GENERAL APPEARANCE: comfortable and frail appearing ORIENTATION/CONSCIOUSNESS: Yes awake OTHER: Nonverbal at baseline apart from occasional one-word statements. HENMT: COMMON NORMALS: oropharynx normal NOSE: Other nasal findings present (NGT) Neck/C-Spine: COMMON NORMALS: no JVD Resp: COMMON NORMALS: normal respiratory effort and clear to auscultation bilaterally AUSCULTATION: clear to auscultation bilaterally OTHER: Occasional cough Cardio: COMMON NORMALS: no JVD, regular rhythm, S1 normal heart sound present, S2 normal heart sound present and No murmurs present (Cardio) RHYTHM: regular rhythm HEART SOUNDS: S1 normal heart sound present and S2 normal heart sound present GI: COMMON NORMALS: Normal to inspection, nondistended, normoactive bowel sounds present, Soft to palpation and non-tender AUSCULTATION: Yes Hypoactive bowel sounds present (Blood present, better than yesterday) PALPATION: Yes Soft to palpation Extremity: COMMON NORMALS: no joint enlargement and no pedal edema Neuro: COMMON NORMALS: moves all extremities Skin: COMMON NORMALS: no rashes or lesions noted GENERAL SKIN EXAM: no rashes or lesions noted Data : 04/20/21 04:38 04/20/21 04:38 Micro: Microbiology 04/15/21 08:12 Blood Culture - Final Blood NO GROWTH AFTER 5 DAYS 04/15/21 08:12 Blood Culture - Final Blood NO GROWTH AFTER 5 DAYS A&P Assessment and plan (1) Gastroenteritis: Gastroenteritis with ileus, slow progress on oral intake. So far not yet having additional vomiting, although low intake. Dietitian recommendations appreciated. Family brought boost on their own, requesting to give him. Discussed that would be okay. We advanced a trial of diet to full liquid as per discussion. May be at risk of dehydration, so continue monitoring for now. Continue PPI. Sucralfate. Reglan. Continue PPI due to reddish/brown discharge several days ago from NGT, complete 6-week course of PPI. Follow-up reassessment with primary provider. Status: Acute (2) Small bowel obstruction: Resolved. Prn zofran for nausea vomiting Blood cx from 04/08 noted to have Cons+ 3/3 bottles, suspect contaminnat however given presence of vagus nerve stimulator culture was repeated. So far no growth on preliminary. Mother request to discontinue antibiotic unless something grows on repeat culture. Vancomycin was stopped. Status: Acute Additional A&P Information Breakthrough seizure: Brief, self-limited seizure episode in the hospital. Valproic acid level checked, low at 40.5. Discussed with his neurologist. Given loading dose of 300 mg IV Depacon. After that recommended continue his usual dosing. Continue follow-up with neurology. Loose stool: Resolved. On presentation diffuse fluid distention of bowel progressive since 04/08/2021, bowel thickening decreased. Prior CT findings suggestive of gastroenterocolitis. Loose bowel movement 04/16. C. difficile negative. Requested stool culture, ova and parasite. Acute bronchitis: No evidence of pneumonia on x-ray. Cough improving. Rhonchi resolved. Continue guaifenesin. Flutter valve. Family report intermittent cough for close about a year. Appears long-term or recurrent issue. Report cough with food or drink. Will get OPHTHALMIC ASST assessment. Discussed with him once his gastroenteritis/ileus resolves would benefit from modified barium swallow study. He verbalized understanding and agreement. Hypokalemia: Replenished. Hypomagnesemia: Magnesium mildly low at 1.6. Additional supplementation. Attestations Medical Necessity Statement*: Continue admission for assessment management of gastroenteritis, ileus, poor oral intake, risk of dehydration in a young gentleman with neurocognitive disorder. Coding Level of Care Code Acute Master In Chancery for [facility] Diagnoses Gastroenteritis K52.9 Small bowel obstruction K56.609
[2021-04-20 20:00] VITALS: BP 103/71; PULSE 89; RESP 16; TEMP 36.4; O2SAT 95
[2021-04-20] MEDS: magnesium oxide 400 mg tablet 200 MG PO (20:49)
[2021-04-21] VITALS: BP 110/68; PULSE 104; RESP 16; TEMP 36.6; O2SAT 85
[2021-04-21] MEDS: dextrose 5%-ns + KCl 40 40 MEQ/1,000 ML BAG 100 MEQ IV ×3 (00:29→21:00)
[2021-04-21 04:00] VITALS: BP 96/62; PULSE 89; RESP 16; TEMP 36.8; O2SAT 98
[2021-04-21 06:07] LABS: Basophils # 0.1 10^3/uL (0.0-0.1); Basophils % 0.5 %; Hematocrit 35.8 % (42.0-52.0); Hemoglobin 11.3 g/dL (11.7-16.6); Lymphocytes # 1.2 10^3/uL (0.8-4.8); Lymphocytes % 12.8 %; Mean Corpuscular HGB Conc 31.6 g/dL (30.0-36.0); Mean Corpuscular Hemoglobin 32.6 pg (28.0-34.0); Mean Corpuscular Volume 103.2 fl (80-94); Mean Platelet Volume 8.2 fL (7.4-10.4); Monocytes # 0.7 10^3/uL (0.2-0.9); Monocytes % 7.3 %; Neutrophils # 7.45 10^3/uL (1.8-7.7); Neutrophils % 78.5 %; Nucleated Red Blood Cells % 0 %; Platelet Count 578 10^3/cmm (130-400); Red Blood Count 3.47 10^6/uL (4.1-5.3); Red Cell Distribution Width 14.8 % (12.1-15.1); White Blood Count 9.5 10^3/uL (4.0-10.0)
[2021-04-21] MEDS: sucralfate 1 gm Tablet PO ×4 (06:07→21:00)
[2021-04-21] MEDS: metoclopramide oral liquid 5 mg/5 mL (ml) PO ×3 (06:07→16:15)
[2021-04-21 06:28] LABS: Anion Gap 12.6 (5-19); Blood Urea Nitrogen 4 mg/dL (6-20); Calcium 8.2 mg/dL (8.5-10.5); Carbon Dioxide 25 mmol/L (22-29); Chloride 105 mmol/L (98-107); Glomerular Filtration Rate 359.6 mL/min (90-130); Glucose 99 mg/dL (65-115); Magnesium 1.7 mg/dL (1.7-2.3); Osmolality Calculated 283 mOsm/kg (285-295); Potassium 4.6 mmol/L (3.5-5.1); Sodium 138 mmol/L (136-145)
[2021-04-21 07:17] VITALS: BP 92/57; PULSE 99; RESP 18; TEMP 36.9; O2SAT 93
[2021-04-21] MEDS: divalproex Sprinkles 125 mg Capsule 750 MG PO ×2 (08:22→21:00)
[2021-04-21] MEDS: magnesium oxide 400 mg tablet 200 MG PO ×2 (08:22→16:14)
[2021-04-21] MEDS: pantoprazole DR 40 mg Tablet PO ×2 (08:22→16:15)
[2021-04-21] MEDS: levothyroxine 50 mcg Tablet PO (08:22)
[2021-04-21 11:58] VITALS: BP 99/61; PULSE 95; RESP 18; O2SAT 99
--- NOTE | 2021-04-21 12:16 | PC.CHAP ---
Pastoral Care Encounter/Spiritual Assessment Type of Contact [] Declined agent based modeler visit [] Patient/Family/Request visit [] Outpatient visit [XX] Follow-up visit [] Physician referral [] Code/Alert [] Routine visit [] Staff referral [] Actively dying [XX] Patient sleeping [] Family support [] [] Out of room [] Palliative care [] [] Receiving care in room [] Pre-surgical visit [] Trauma [] Long length of stay [] ICU visit [XX] Other: Checked in with brother and mother who were present in the room Relational/Emotional Strength [] Patient feels connected with others/family/visitors/staff [] Distress [] Loneliness/isolation [] Abandonment Spirituality of Patient [] Person of Lupe [] Attends Mandaeism of their Lupe [] Believes in Prayer [] Reads Bible or Synagogue materials [] There are Spiritual issues to be addressed Software Design Analyst Interventions [] Prayer [] Active listening [] Non-anxious presence [] Spiritual/emotional support [] Crisis/trauma care [] Spiritual counseling [] Bereavement support [] Provided bereavement packet [] Provided Bible/devotional materials [] Provided toy/stuffed animal, coloring book to patient or family member [] Provided Communion [] Anointing/[place] [] Salvation [] Completed spiritual assessment [] Other: Impact on Illness or Injury [] Angry [] Fearful [] Anxious [] Often cries [] Exhaustion [] Unable to work [] Unable to attend mandaeism [] Unable to walk/stand [] Unable to read [] Unable to drive [] Unable to eat/drink [] Unable to sleep [] Unable to be with family [] Patient intubated [] Other: Summary Time spent with patient
[2021-04-21] MEDS: divalproex Sprinkles 125 mg Capsule 625 MG PO (15:09)
[2021-04-21 15:31] VITALS: BP 111/75; PULSE 101; RESP 16; O2SAT 98
[2021-04-21] MEDS: ondansetron 2 mg/ML SDV 2 mL 4 MG IVP (16:15)
--- NOTE | 2021-04-21 16:21 | PC.NURSE ---
patient vomited. patient given Zofran and Reglan. Dr Vogel notified. Per Dr Vogel keep patient on clear liquids.
--- NOTE | 2021-04-21 16:35 | PC.NURSE ---
Addendum entered by Amada Mckeon RN 04/21/21 16:36: Notified Dr Ruth what mother told me. Original Note: patient's mom said she had an different brand of Banzel and that is when patient started getting sick. she said she is going to try to get the brand that he is used to and see if that is contributing to patient's sickness.
[2021-04-21 20:00] VITALS: BP 100/68; PULSE 95; RESP 17; TEMP 36.7; O2SAT 98
--- NOTE | 2021-04-21 20:36 | P.PN_ITS ---
Subjective Subjective: Interval history: This morning was doing well, tolerating full liquid. This afternoon vomited. Vitals/I&O/Wt Last Vital Signs Temp 98.4 F 04/21/21 07:17 Pulse 101 H 04/21/21 15:31 Resp 16 04/21/21 15:31 BP 111/75 04/21/21 15:31 Pulse Ox 98 04/21/21 15:31 04/21/21 04/21/21 04/21/21 06:59 14:59 22:59 Intake Total 1240 / 1240 Balance 1240 / 1240 Weight last 48 hrs Weight 47.582 kg Physical Exam Narrative: EXAM NARRATIVE: Family at bedside. Const: COMMON NORMALS: no acute distress GENERAL APPEARANCE: comfortable and frail appearing ORIENTATION/CONSCIOUSNESS: Yes awake OTHER: Nonverbal at baseline apart from occasional one-word statements. HENMT: COMMON NORMALS: oropharynx normal NOSE: Other nasal findings present (NGT) Neck/C-Spine: COMMON NORMALS: no JVD Resp: COMMON NORMALS: normal respiratory effort and clear to auscultation bilaterally AUSCULTATION: clear to auscultation bilaterally OTHER: Occasional cough Cardio: COMMON NORMALS: no JVD, regular rhythm, S1 normal heart sound present, S2 normal heart sound present and No murmurs present (Cardio) RHYTHM: regular rhythm HEART SOUNDS: S1 normal heart sound present and S2 normal heart sound present GI: COMMON NORMALS: Normal to inspection, nondistended, normoactive bowel sounds present, Soft to palpation and non-tender PALPATION: Yes Soft to palpation OTHER: Good bowel sounds this morning Extremity: COMMON NORMALS: no joint enlargement and no pedal edema Neuro: COMMON NORMALS: moves all extremities Skin: COMMON NORMALS: no rashes or lesions noted GENERAL SKIN EXAM: no rashes or lesions noted Data : 04/21/21 05:55 04/21/21 05:55 A&P Assessment and plan (1) Gastroenteritis: Gastroenteritis with ileus, this morning good bowel sounds, tolerating liquid diet. This afternoon again episode of vomiting. Diet again downgraded to clear liquids. Unreliable oral intake so far. Advance slowly as tolerating. His mother is also going to try to get the brand of Banzel he used to have in the past, with the current brand started more recently, and she feels possibly coinciding with him getting sick as well. Yesterday difficulties obtaining IV even with ultrasound. May be at risk of dehydration, so continue monitoring for now. In case becoming dehydrated, IV placement may need to be retried, or possibly PICC line considered if starts needing IV rehydration. Continue PPI. Sucralfate. Reglan. Continue PPI also due to reddish/brown discharge several days ago from NGT, complete 6-week course of PPI. Follow-up reassessment with primary provider. Status: Acute (2) Small bowel obstruction: Unobstructed. Possibly some persistence of ileus or gastric/enteric sensitivity following gastroenteritis. Resolved. Prn zofran for nausea vomiting Blood cx from 04/08 noted to have Cons+ 3/3 bottles, suspect contaminnat however given presence of vagus nerve stimulator culture was repeated. So far no growth on preliminary. Mother request to discontinue antibiotic unless something grows on repeat culture. Vancomycin was stopped. Status: Acute Additional A&P Information Breakthrough seizure: Brief, self-limited seizure episode in the hospital. Valproic acid level checked, low at 40.5. Discussed with his neurologist. Given loading dose of 300 mg IV Depacon. After that recommended continue his usual dosing. Continue follow-up with neurology. Loose stool: Resolved. On presentation diffuse fluid distention of bowel progressive since 04/08/2021, bowel thickening decreased. Prior CT findings suggestive of gastroenterocolitis. Loose bowel movement 04/16. C. difficile melissa mason. Requested stool culture, ova and parasite. Acute bronchitis: No evidence of pneumonia on x-ray. Cough improving. Rhonchi resolved. Continue guaifenesin. Flutter valve. Family report intermittent cough for close about a year. Appears long-term or recurrent issue. Report cough with food or drink. Did well with speech therapy today. Consider modified barium swallow but once he is tolerating oral intake reliably without vomiting. Hypokalemia: Replenished. Hypomagnesemia: Gradually improving. Additional oral supplementation. Attestations Medical Necessity Statement*: Continue admission for assessment management of recurrent vomiting, unreliable oral intake following gastroenteritis, ileus, and the abdomen with neurocognitive disorder. Coding Level of Care Code Acute Molded Goods Controls Operator for [facility] Diagnoses Gastroenteritis K52.9 Small bowel obstruction K56.609
[2021-04-22] VITALS: BP 95/63; PULSE 96; RESP 15; TEMP 36.4; O2SAT 92
[2021-04-22 04:00] VITALS: BP 89/59; PULSE 88; RESP 16; TEMP 36.4; O2SAT 92
[2021-04-22 05:42] LABS: Basophils % 0.5 %; Hematocrit 33.5 % (42.0-52.0); Hemoglobin 10.6 g/dL (11.7-16.6); Lymphocytes # 1.5 10^3/uL (0.8-4.8); Lymphocytes % 17.1 %; Mean Corpuscular HGB Conc 31.6 g/dL (30.0-36.0); Mean Corpuscular Hemoglobin 31.9 pg (28.0-34.0); Mean Corpuscular Volume 100.9 fl (80-94); Mean Platelet Volume 8.3 fL (7.4-10.4); Monocytes # 0.7 10^3/uL (0.2-0.9); Monocytes % 7.8 %; Neutrophils # 6.35 10^3/uL (1.8-7.7); Neutrophils % 73.7 %; Nucleated Red Blood Cells % 0 %; Platelet Count 565 10^3/cmm (130-400); Red Blood Count 3.32 10^6/uL (4.1-5.3); Red Cell Distribution Width 14.8 % (12.1-15.1); White Blood Count 8.6 10^3/uL (4.0-10.0)
[2021-04-22 06:04] LABS: Alanine Aminotransferase 12 U/L (0-41); Albumin Level 2.6 g/dL (3.5-5.2); Alkaline Phosphatase 154 IU/L (40-130); Anion Gap 11.4 (5-19); Aspartate Amino Transferase 8 U/L (0-40); Blood Urea Nitrogen 4 mg/dL (6-20); Calcium 8.1 mg/dL (8.5-10.5); Carbon Dioxide 26 mmol/L (22-29); Chloride 105 mmol/L (98-107); Globulin 2.6 g/dL (1.3-4.6); Glomerular Filtration Rate 359.6 mL/min (90-130); Glucose 98 mg/dL (65-115); Magnesium 1.7 mg/dL (1.7-2.3); Osmolality Calculated 283 mOsm/kg (285-295); Potassium 4.4 mmol/L (3.5-5.1); Sodium 138 mmol/L (136-145); Total Bilirubin 0.2 mg/dL (0.15-1.2); Total Protein 5.2 g/dL (6.6-8.7)
[2021-04-22 06:08] LABS: Add Urine Microscopic? NO; Charge for UA Resulting for Rev
[2021-04-22 06:23] LABS: Bilirubin Urine Neg (Negative); Blood Urine Neg (Negative); Glucose Urine UA Norm (Normal); Ketones Urine Negative (Negative); Leukocyte Esterase Urine Negative (Negative); Nitrate Urine Negative (Negative); Protein Urine Neg (Negative); Urine Appearance Clear (CLEAR); Urine Color Straw (Yellow); Urobilinogen Urine Norm (Negative); pH Urine 8 (5-7)
[2021-04-22] MEDS: metoclopramide oral liquid 5 mg/5 mL (ml) PO ×2 (06:37→11:41)
[2021-04-22] MEDS: dextrose 5%-ns + KCl 40 40 MEQ/1,000 ML BAG 100 MEQ IV ×2 (06:37→17:32)
[2021-04-22] MEDS: sucralfate 1 gm Tablet PO ×3 (06:37→17:33)
[2021-04-22 08:00] VITALS: BP 107/63; PULSE 96; RESP 16; TEMP 36.6; O2SAT 95
--- NOTE | 2021-04-22 09:01 | PC.NURSE ---
Patient's mother is asking if any of his meds can be switched to IV instead of PO since he has been getting sick. Dr Ordoñez notified.
[2021-04-22] MEDS: magnesium oxide 400 mg tablet 200 MG PO ×2 (09:11→17:32)
[2021-04-22] MEDS: levothyroxine 50 mcg Tablet PO (09:11)
[2021-04-22] MEDS: pantoprazole DR 40 mg Tablet PO ×2 (09:11→17:33)
[2021-04-22] MEDS: divalproex Sprinkles 125 mg Capsule 750 MG PO ×2 (09:11→21:01)
--- NOTE | 2021-04-22 09:24 | PC.NURSE ---
typewriter ribbon winder notified Dr Ordoñez that patient has been able to hold down some food this morning. Per Dr Ordoñez since patient has been able to hold down some apple juice and tomato soup without vomiting this morning to keep meds PO for now.
--- NOTE | 2021-04-22 11:33 | PC.NURSE ---
rcvd verbal order from Dr Ordoñez for Abdominal Series. order put in.
[2021-04-22 12:00] VITALS: BP 104/68; PULSE 89; RESP 16; TEMP 36.4; O2SAT 90
--- NOTE | 2021-04-22 12:48 | PC.NURSE ---
patient unable to stand. Abdominal series order changed do to patient not being able to stand.
--- NOTE | 2021-04-22 13:39 | XR_ITS ---
WS: [id number] XR acute abdomen series [id number] REASON FOR EXAM: nausea and vomiting FINDINGS: Compared to the previous examination of 04/18/2021 there is a more significant gaseous distention of c olon in the upper mid and left abdomen. In the extreme left quadrant there is a segment of bowel which demonstrates a very irregular bowel wa ll compatible with edema or other infiltration. A similar but less prominent abnormality is seen in t he bowel wall in the right upper quadrant as well. Increased dilatation of small bowel in the left lower quadrant compared to 04/18/2021. There is some gas in the rectum. There is no free air or retroperitoneal air identified. XR/XR acute abdomen series [id number] IMPRESSION: Increasing bowel distention with abnormal loops of bowel identified in the righ t upper and left upper quadrant. Most likely these are segments of colon. Corre lation with previous surgical history should be made.
--- NOTE | 2021-04-22 14:00 | PC.SOCIAL ---
IMM Updated Updated pt's parents on IMM. No questions voiced. Provided them a copy. Initialed, dated, & timed copy in chart.
--- NOTE | 2021-04-22 15:17 | P.PN_ITS ---
Subjective Subjective: Interval history: Hospital course, labs appreciated. On examination parents at bedside. Patient looks comfortable watching television. As per the nurse and parents patient has tolerated clear liquid diet with last episode of vomiting yesterday. Mother concerned about patient not having a bowel movement since . Mother states patient seems comfortable for now. Vitals/I&O/Wt Last Vital Signs Temp 97.6 F 04/22/21 12:00 Pulse 89 04/22/21 12:00 Resp 16 04/22/21 12:00 BP 104/68 04/22/21 12:00 Pulse Ox 90 04/22/21 12:00 04/22/21 04/22/21 04/22/21 06:59 14:59 22:59 Intake Total 961.667 / 3255.000 620 / 620 Balance 961.667 / 3255.000 620 / 620 Weight last 48 hrs Weight 46.402 kg Weight 47.582 kg Physical Exam Narrative: EXAM NARRATIVE: Family at bedside. Const: COMMON NORMALS: no acute distress GENERAL APPEARANCE: comfortable and frail appearing ORIENTATION/CONSCIOUSNESS: Yes awake OTHER: Nonverbal at baseline apart from occasional one-word statements. HENMT: COMMON NORMALS: oropharynx normal NOSE: Other nasal findings present (NGT) Neck/C-Spine: COMMON NORMALS: no JVD Resp: COMMON NORMALS: normal respiratory effort and clear to auscultation bilaterally AUSCULTATION: clear to auscultation bilaterally OTHER: Occasional cough Cardio: COMMON NORMALS: no JVD, regular rhythm, S1 normal heart sound present, S2 normal heart sound present and No murmurs present (Cardio) RHYTHM: regular rhythm HEART SOUNDS: S1 normal heart sound present and S2 normal heart sound present GI: COMMON NORMALS: Normal to inspection, nondistended, normoactive bowel sounds present, Soft to palpation and non-tender AUSCULTATION: Yes Hypoactive bowel sounds present (Blood present, better than yesterday) PALPATION: Yes Soft to palpation OTHER: Bowel sounds present, inconsistent Extremity: COMMON NORMALS: no joint enlargement and no pedal edema Neuro: COMMON NORMALS: moves all extremities Skin: COMMON NORMALS: no rashes or lesions noted GENERAL SKIN EXAM: no rashes or lesions noted Data : 04/22/21 05:34 04/22/21 05:34 A&P Assessment and plan (1) Gastroenteritis: Has finished her treatment with antibiotics in the past. C. difficile in the past negative. Stool studies have been requested but still not collected. Status: Acute (2) Ileus: Continue with clear liquid diet. Patient has had multiple failed advancement of diet during hospitalization. Tolerating clear liquid diet well for now. Appreciate surgical recommendations. Check abdominal series. Depending on the result of abdominal series will decide about bowel regimen. Reglan, Zofran as needed Status: Acute (3) Seizure disorder: Status: Acute (4) Neurocognitive disorder: Status: Acute (5) Small bowel obstruction: Status: Ruled-out Additional A&P Information Breakthrough seizure: Brief, self-limited seizure episode in the hospital. Valproic acid level checked, low at 40.5. Discussed with his neurologist. Given loading dose of 300 mg IV Depacon. After that recommended continue his usual dosing. Continue follow-up with neurology. Loose stool: Resolved. On presentation diffuse fluid distention of bowel progressive since 04/08/2021, bowel thickening decreased. Prior CT findings suggestive of gastroenterocolitis. Loose bowel movement 04/16. C. difficile negative. Requested stool culture, ova and parasite. Acute bronchitis: No evidence of pneumonia on x-ray. Cough improving. Rhonchi resolved. Continue guaifenesin. Flutter valve. Family report intermittent cough for close about a year. Appears long-term or recurrent issue. Report cough with food or drink. Did well with speech therapy today. Consider modified barium swallow but once he is tolerating oral intake reliably without vomiting. Full code. Clear liquid diet. Heparin for DVT prophylaxis. Attestations Medical Necessity Statement*: Requires further hospitalization for gradual advancement of diet in setting of ileus secondary to gastroenteritis Time Spent in Patient Care: Greater than 35 minutes (>than 50% of time spent in counselling and/or direct pt care on unit) . Coding Level of Care Code Acute Temp Recruiter for [facility] Fwd Diagnoses Gastroenteritis K52.9 Ileus K56.7 Seizure disorder G40.909 Neurocognitive disorder R41.9 Small bowel obstruction K56.609
[2021-04-22] MEDS: divalproex Sprinkles 125 mg Capsule 625 MG PO (15:57)
[2021-04-22 16:00] VITALS: BP 103/68; PULSE 90; RESP 16; TEMP 36.6; O2SAT 99
[2021-04-22] MEDS: heparin 5,000 unit/mL INJ 1 mL 5000 UNIT SUBCUT (17:33)
--- NOTE | 2021-04-22 17:55 | PC.NURSE ---
rcvd order for Ewelina gaines, copy writer put order in
--- NOTE | 2021-04-22 18:08 | PC.NURSE ---
patient's family refused fleets enema. Dr Ordoñez notified.
[2021-04-22 20:00] VITALS: BP 110/67; PULSE 93; RESP 17; TEMP 36.9; O2SAT 97
[2021-04-23] VITALS: BP 99/68; PULSE 83; RESP 16; TEMP 36.4; O2SAT 92
[2021-04-23] MEDS: dextrose 5%-ns + KCl 40 40 MEQ/1,000 ML BAG 100 MEQ IV ×2 (03:02→12:04)
[2021-04-23 04:00] VITALS: BP 89/60; PULSE 87; RESP 16; TEMP 36.7; O2SAT 91
[2021-04-23] MEDS: sucralfate 1 gm Tablet PO (06:49)
[2021-04-23 06:50] LABS: Alanine Aminotransferase 11 U/L (0-41); Albumin Level 2.5 g/dL (3.5-5.2); Alkaline Phosphatase 146 IU/L (40-130); Aspartate Amino Transferase 10 U/L (0-40); Blood Urea Nitrogen 4 mg/dL (6-20); Calcium 8.3 mg/dL (8.5-10.5); Carbon Dioxide 23 mmol/L (22-29); Chloride 106 mmol/L (98-107); Globulin 2.6 g/dL (1.3-4.6); Glomerular Filtration Rate 359.6 mL/min (90-130); Glucose 91 mg/dL (65-115); Osmolality Calculated 284 mOsm/kg (285-295); Sodium 139 mmol/L (136-145); Total Bilirubin 0.2 mg/dL (0.15-1.2); Total Protein 5.1 g/dL (6.6-8.7)
[2021-04-23 06:51] LABS: Anion Gap 14.1 (5-19); Potassium 4.1 mmol/L (3.5-5.1)
[2021-04-23] MEDS: metoclopramide oral liquid 5 mg/5 mL (ml) PO (06:51)
[2021-04-23 07:35] VITALS: BP 101/65; PULSE 96; RESP 17; TEMP 36.1; O2SAT 94
--- NOTE | 2021-04-23 09:11 | PC.NURSE ---
family refused protonix this morning
--- NOTE | 2021-04-23 09:18 | PC.NURSE ---
Notified Dr Ordoñez that patient's family refused Protonix this morning
[2021-04-23] MEDS: magnesium oxide 400 mg tablet 200 MG PO (10:44)
[2021-04-23] MEDS: levothyroxine 50 mcg Tablet PO (10:44)
[2021-04-23] MEDS: divalproex Sprinkles 125 mg Capsule 750 MG PO (10:45)
[2021-04-23 11:38] VITALS: BP 108/71; PULSE 107; RESP 18; TEMP 36.8; O2SAT 99
--- NOTE | 2021-04-23 13:28 | P.DS_ITS ---
Discharge Providers Date of Admission: 04/15/21 01:05 Date of Discharge: April 23, 2021 Attending Provider at Admission: Monserrat Hernandez MD Attending Provider at Discharge: Ryan Ordoñez MD Consults: Surgery: Dr. 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 CT abdomen had shown gastroenterocolitis and gallbladder wall edema. US was noted with no cholecystitis. He was started on IV fluids and antibiotics for gastroe nteritis. His symptoms improved and he was able to tolerate his regular diet in the morning, he remained afebrile. He was discharged on ciprofloxacin, Flagyl, Zofran. He returned on 04/15 as was brought by family with nausea, vomiting and one episode of loose stool. CT abdomen today shows Diffuse fluid distention of bowel is progressive since 04/08/2021. Bowel wall thickening is decreased. There is a markedly dilated fluid-filled portion of bowel in the left mid abdomen. Possible obstruction. NGT has been placed to suction in the ER. Patient went to the hospital for further management of severe nausea and vomiting secondary to ileus secondary to recent gastroenteritis. Surgery was consulted. Patient was treated conservatively with bowel rest. Multiple electrolyte abnormalities were corrected during hospitalization. Frequent abdominal series and abdominal examinations were done. Hospitalization was prolonged and complicated by frequent failure of diet advancement because of development of nausea. Patient was treated with aggressive bowel regimen. Patient has been tolerating clear liquid diet well for last 48 hours without any episodes of nausea or vomiting and has had a bowel movement prior to discharge. During hospitalization patient also had a breakthrough seizure. Valproic acid levels were checked and was found to be on the lower side and he was loaded with valproic acid as per conversation with his outside neurologist and has been stable on the current dose. He is been discharged in hemodynamically stable condition on bowel regimen, continuation of home medications and advised to advance diet very gradually from clear liquid to full liquid to GI soft/brat diet gradually within next 1 week to 10 days. Physical Exam Narrative: EXAM NARRATIVE: Family at bedside. Const: COMMON NORMALS: no acute distress GENERAL APPEARANCE: comfortable and frail appearing ORIENTATION/CONSCIOUSNESS: Yes awake OTHER: Nonverbal at baseline apart from occasional one-word statements. HENMT: COMMON NORMALS: oropharynx normal NOSE: Other nasal findings present (NGT) Neck/C-Spine: COMMON NORMALS: no JVD Resp: COMMON NORMALS: normal respiratory effort and clear to auscultation bilaterally AUSCULTATION: clear to auscultation bilaterally OTHER: Occasional cough Cardio: COMMON NORMALS: no JVD, regular rhythm, S1 normal heart sound present, S2 normal heart sound present and No murmurs present (Cardio) RHYTHM: regular rhythm HEART SOUNDS: S1 normal heart sound present and S2 normal heart sound present GI: COMMON NORMALS: Normal to inspection, nondistended, normoactive bowel sounds present, Soft to palpation and non-tender AUSCULTATION: Yes Hypoactive bowel sounds present (Blood present, better than yesterday) PALPATION: Yes Soft to palpation OTHER: Bowel sounds present, inconsistent Extremity: COMMON NORMALS: no joint enlargement and no pedal edema Neuro: COMMON NORMALS: moves all extremities Skin: COMMON NORMALS: no rashes or lesions noted GENERAL SKIN EXAM: no rashes or lesions noted Discharge Data Data Completed and Pending: Completed Studies During Hospitalization Category Date Time Status CT abdomen pelvis w con* [id number] Urge nt Cat Scan 04/14/21 21:42 Completed XR acute abdomen series [id number] Routi ne Exams 04/18/21 15:50 Completed XR acute abdomen series [id number] Routi ne Exams 04/22/21 13:39 Completed XR chest 1V shahid ble [id number] Routine Exams 04/16/21 14:21 Completed XR chest 1V shahid ble [id number] Stat Exams 04/15/21 03:22 Completed Pending at discharge Category Date Time Status Enteric Bacterial Panel by PCR Rout ine Lab 04/23/21 06:45 Received OVA and Parasites , Conc and PE Rout ine Lab 04/23/21 06:45 Received Labs from last 24 hours 04/23/21 05:00 Sodium 139 Potassium 4.1 Chloride 106 Carbon Dioxide 23 Anion Gap 14.1 BUN 4 L Creatinine 0.3 L GFR Calculation 359.6 H Glucose 91 Calculated Osmolal ity 284 L Calcium 8.3 L Total Bilirubin 0.2 AST 10 ALT 11 Alkaline Phosphata se 146 H Total Protein 5.1 L Albumin 2.5 L Globulin 2.6 Addt'l Data from Hospital Stay: Laboratory Results WBC 8.6 10^3/uL (4.0- 10.0) 04/22/21 05:34 RBC 3.32 10^6/uL (4.1 -5.3) L 04/22/21 05:34 Hgb 10.6 g/dL (11.7-1 6.6) L 04/22/21 05:34 Hct 33.5 % (42.0-52.0 ) L 04/22/21 05:34 MCV 100.9 fl (80-94) H 04/22/21 05:34 MCH 31.9 pg (28.0-34. 0) 04/22/21 05:34 MCHC 31.6 g/dL (30.0-3 6.0) 04/22/21 05:34 RDW 14.8 % (12.1-15.1 ) 04/22/21 05:34 Plt Count 565 10^3/cmm (130 -400) H 04/22/21 05:34 MPV 8.3 fL (7.4-10.4) 04/22/21 05:34 Neut % (Auto) 73.7 % 04/22/21 05:34 Lymph % (Auto) 17.1 % 04/22/21 05:34 [place] % (Auto) 7.8 % 04/22/21 05:34 Eos % (Auto) 0.0 % 04/22/21 05:34 Baso % (Auto) 0.5 % 04/22/21 05:34 Neut # (Auto) 6.35 10^3/uL (1.8 -7.7) 04/22/21 05:34 Lymph # (Auto) 1.5 10^3/uL (0.8- 4.8) 04/22/21 05:34 [place] # (Auto) 0.7 10^3/uL (0.2- 0.9) 04/22/21 05:34 Eos # (Auto) 0.0 10^3/uL (0.0- 0.8) 04/22/21 05:34 Baso # (Auto) 0.0 10^3/uL (0.0- 0.1) 04/22/21 05:34 Nucleated RBC % (a uto) 0 % 04/22/21 05:34 Nucleated RBCs # 0.0 /100WBC 04/22/21 05:34 Sodium 139 mmol/L (136-1 45) 04/23/21 05:00 Potassium 4.1 mmol/L (3.5-5 .1) 04/23/21 05:00 Chloride 106 mmol/L (98-10 7) 04/23/21 05:00 Carbon Dioxide 23 mmol/L (22-29) 04/23/21 05:00 Anion Gap 14.1 (5-19) 04/23/21 05:00 BUN 4 mg/dL (6-20) L 04/23/21 05:00 Creatinine 0.3 mg/dL (0.7-1. 2) L 04/23/21 05:00 GFR Calculation 359.6 mL/min (90- 130) H 04/23/21 05:00 Glucose 91 mg/dL (65-115) 04/23/21 05:00 Calculated Osmolal ity 284 mOsm/kg (285- 295) L 04/23/21 05:00 Lactate 0.6 mmol/L (0.5-2 .2) 04/14/21 21:34 Calcium 8.3 mg/dL (8.5-10 .5) L 04/23/21 05:00 Magnesium 1.7 mg/dL (1.7-2. 3) 04/22/21 05:34 Total Bilirubin 0.2 mg/dL (0.15-1 .2) 04/23/21 05:00 AST 10 U/L (0-40) 04/23/21 05:00 ALT 11 U/L (0-41) 04/23/21 05:00 Alkaline Phosphata se 146 IU/L (40-130) H 04/23/21 05:00 C-Reactive Protein 0.6 mg/L (0.0-4.9 ) 04/14/21 21:34 Total Protein 5.1 g/dL (6.6-8.7 ) L 04/23/21 05:00 Albumin 2.5 g/dL (3.5-5.2 ) L 04/23/21 05:00 Globulin 2.6 g/dL (1.3-4.6 ) 04/23/21 05:00 Lipase 48 U/L (13-60) 04/14/21 21:34 Urine Color Straw (Yellow) 04/22/21 05:30 Urine Appearance Clear (CLEAR) 04/22/21 05:30 Urine pH 8 (5-7) H 04/22/21 05:30 Ur Specific Gravit y 1.010 (1.005-1.0 30) 04/22/21 05:30 Urine Protein Neg (Negative) 04/22/21 05:30 Urine Glucose (UA) Norm (Normal) 04/22/21 05:30 Urine Ketones Negative (Negati ve) 04/22/21 05:30 Urine Blood Neg (Negative) 04/22/21 05:30 Urine Nitrate Negative (Negati ve) 04/22/21 05:30 Urine Bilirubin Neg (Negative) 04/22/21 05:30 Urine Urobilinogen Norm mg/dL (Negat luis manuel) 04/22/21 05:30 Ur Leukocyte Ninoska ase Negative (Negati ve) 04/22/21 05:30 Valproic Acid 40.5 ug/mL (50-10 0) L 04/17/21 08:06 Impressions Abdomen/Pelvis CT 04/14/21 21:42 IMPRESSION: Diffuse fluid distention of bowel is progressive since 04/08/2021. Bowel wall thickening is decreased. There is a markedly dilated fluid-filled portion of bowel in the left mid abdomen. Possible obstruction. Assessment of bowel is very limited on this exam. The colon cannot be confidently differentiated from the small bowel. Consider repeat exam with oral or rectal contrast for improved visualization of bowel. Radiation Dose CTDIVOL = (mGy): DLP = 760.21 (mGy-cm) Chest X-Ray 04/16/21 14:21 IMPRESSION: 1. No acute cardiopulmonary finding. No change. Chest/Abdomen X-ray 04/22/21 13:39 IMPRESSION: Increasing bowel distention with abnormal loops of bowel identified in the right upper and left upper quadrant. Most likely these are segments of colon. Correlation with previous surgical history should be made. Microbiology 04/15/21 08:12 Blood Blood Culture - Final NO GROWTH AFTER 5 DAYS 04/15/21 08:12 Blood Blood Culture - Final NO GROWTH AFTER 5 DAYS 04/16/21 01:30 Stool Routine Collection C.difficile Toxin B Gene (PCR) - Final Vitals: Last Vital Signs Temp 98.2 F 04/23/21 11:38 Pulse 107 H 04/23/21 11:38 Resp 18 04/23/21 11:38 BP 108/71 04/23/21 11:38 Pulse Ox 99 04/23/21 11:38 Discharge Plan Discharge Patient Disposition: Home Health Service Condition: Stable Prescriptions: New metoclopramide HCl 5 mg/5 mL Solution 5 mg PO AC PRN (Reason: nausea and vomiting) Qty: 500 RF: 0 Milk of Magnesia 400 mg/5 mL Suspension 30 ml PO DAILY PRN (Reason: Constipation) 10 Days Qty: 300 RF: 0 magnesium 250 mg tablet 250 mg PO DAILY Qty: 14 RF: 0 potassium chloride 10 mEq tablet extended release 10 meq PO DAILY Qty: 14 RF: 0 albuterol sulfate 90 mcg/actuation HFA aerosol inhaler 1 inh inhalation QID PRN (Reason: shortness of breath or wheezing) Qty: 6.7 RF: 0 pantoprazole 40 mg tablet,delayed release (DR/EC) 40 mg PO DAILY 42 Days Qty: 42 RF: 0 Continued Banzel 400 mg tablet 1,200 mg PO BID RF: 0 divalproex [Depakote Sprinkles] 125 mg capsule, delayed rel sprinkle See Rx Instructions .ROUTE .COMPLEX RF: 0 diazepam 10 mg tablet 10 mg PO BID PRN (Reason: Anxiety) RF: 0 levothyroxine [Synthroid] 50 mcg tablet 50 mcg PO DAILY RF: 0 ondansetron HCl [Zofran] 4 mg tablet 4 mg PO DAILY PRN (Reason: vomit) 7 Days Qty: 20 RF: 0 valproic acid 250 mg Capsule 250 mg PO BID RF: 0 Discharge Orders: Discharge Order (Routine); Ordered 04/23/21 Ordered By: Ryan Ordoñez Other Ambulatory Orders: Magnesium (Routine) Timeframe: 3 Days Facility: [facility] - Location: Lab - Main Lab Ordered By: Ted Vogel Valproic Acid Level (Routine) Timeframe: 3 Days Facility: [facility] - Location: Lab - Main Lab Ordered By: Ted Vogel Referrals: [facility] [Other] Jon Grider DO [Primary Care Provider] - 4-7 days Discharge Diet: Advance as tolerated and Full LIquid Discharge Activity: Increase activity as tolerated Patient Instructions: Valproic Acid (By mouth), Hypokalemia (GEN), Acute Bronchitis (GEN), Hypomagnesemia (GEN), Bowel Obstruction (GEN), Enteritis (GEN), Opioid Safety Activity Restrictions/Additional Instructions: Please follow-up with your primary doctor to recheck your valproic acid level. Noted subtherapeutic level in the hospital. Additional dose of 300 mg IV was given in the hospital as per discussion with your neurologist. She recommends that you afterward continue the usual doses. Follow up with your neurologist. Also check magnesium and potassium level due to low magnesium and potassium level noted in the hospital. Magnesium and potassium supplementation is provided. Flutter valve, incentive spirometer, as needed albuterol inhaler for bronchitis. Follow-up with primary provider for reassessment for resolution. Full liquid diet going forward for next 3 to 4 days and advance gradually to a regular diet within the next 1 week to 10 days. Please take multiple small meals. Discharge Attestations Time Spent in Discharge Care*: greater than 30 min Specific Discharge Activities: educating and/or supporting family/caregiver, discussing with pcp/other providers, discussing with corrections caseworker/social workers/dc planners, documenting/other paperwork and evaluating patient/reviewing data Status at Discharge: Cognitive status at discharge: severely impaired cognition , Behavioral status at discharge: cooperative , Functional status at discharge: bed bound Overall status at discharge: patient is back to baseline Quality Metrics Clinical Quality Measures During this hospital stay, did patient experience: None Coding Level of Care Code Acute Chg DC note Diagnoses Gastroenteritis K52.9 Ileus K56.7 Seizure disorder G40.909 Neurocognitive disorder R41.9 Small bowel obstruction K56.609
--- NOTE | 2021-04-23 15:08 | PC.NURSE ---
discharge instructions given to patient's family. they verbalized understanding of instructions. patient dressed by family and taken to private vehicle via wheelchair by staff.
[2021-04-23 15:21] VITALS: BP 108/71; PULSE 107; RESP 18; TEMP 36.8; O2SAT 99
== END 2021-04-23 15:21 | disposition home health service (06) | DRG 392 ==
LOC: ER 04-15 01:17 → MEDSURG 04-15 01:28
PROVIDERS: Internal Medicine; Admitting Provider Student in an Organized Health Care Education/Training Program; Emergency Provider Emergency Medicine; PCP Internal Medicine; Visit Provider Student in an Organized Health Care Education/Training Program
DX: K52.9 Noninfective gastroenteritis and colitis, unspecified (principal); K56.7 Ileus, unspecified; G40.909 Epilepsy, unspecified, not intractable, without status epilepticus; F79 Unspecified intellectual disabilities; E03.9 Hypothyroidism, unspecified; R11.2 Nausea with vomiting, unspecified; R41.9 Unspecified symptoms and signs involving cognitive functions and awareness; Z96.82 Presence of neurostimulator; E87.6 Hypokalemia; J20.9 Acute bronchitis, unspecified; E83.42 Hypomagnesemia
CPT/HCPCS: 36415; 71045; 74022; 74177; 80048; 80053; 80164; 81003; 83605; 83690; 83735; 84132; 85025; 86140; 87040; 87177; 87209; 87493; 87506; 92523; 92526; 92610; 94664; 96361; 96372; 96374; 99285; C9113; J1644; J1650; J2405; J3475; J3480; J7030; Q9967

== ENCOUNTER 2021-05-02 11:06 | Outpatient (CLI) | payer MEDICARE, MEDICAID, SELFPAY ==
[2021-05-02 11:26] LABS: Basophils # 0.1 10^3/uL (0.0-0.1); Basophils % 0.8 %; Eosinophils # 0.2 10^3/uL (0.0-0.8); Eosinophils % 3.6 %; Hematocrit 38.3 % (42.0-52.0); Hemoglobin 11.8 g/dL (11.7-16.6); Lymphocytes # 1.4 10^3/uL (0.8-4.8); Lymphocytes % 21.4 %; Mean Corpuscular HGB Conc 30.8 g/dL (30.0-36.0); Mean Corpuscular Hemoglobin 31.8 pg (28.0-34.0); Mean Corpuscular Volume 103.2 fl (80-94); Mean Platelet Volume 9.1 fL (7.4-10.4); Monocytes # 0.4 10^3/uL (0.2-0.9); Monocytes % 6.1 %; Neutrophils # 4.25 10^3/uL (1.8-7.7); Neutrophils % 66.4 %; Nucleated Red Blood Cells % 0 %; Platelet Count 387 10^3/cmm (130-400); Red Blood Count 3.71 10^6/uL (4.1-5.3); White Blood Count 6.4 10^3/uL (4.0-10.0)
[2021-05-02 11:45] LABS: Alanine Aminotransferase 11 U/L (0-41); Albumin Level 3.1 g/dL (3.5-5.2); Alkaline Phosphatase 112 IU/L (40-130); Anion Gap 15.7 (5-19); Aspartate Amino Transferase 10 U/L (0-40); Blood Urea Nitrogen 11 mg/dL (6-20); Calcium 8.2 mg/dL (8.5-10.5); Carbon Dioxide 25 mmol/L (22-29); Chloride 101 mmol/L (98-107); Globulin 2.6 g/dL (1.3-4.6); Glucose 86 mg/dL (65-115); Osmolality Calculated 285 mOsm/kg (285-295); Potassium 3.7 mmol/L (3.5-5.1); Sodium 138 mmol/L (136-145); Total Bilirubin 0.2 mg/dL (0.15-1.2); Total Protein 5.7 g/dL (6.6-8.7)
[2021-05-02 11:48] LABS: Valproic Acid Level 79.5 ug/mL (50-100)
== END 2021-05-02 11:07 | disposition home or self-care (01) ==
LOC: LAB 11:10
PROVIDERS: Internal Medicine; PCP Internal Medicine; Visit Provider Internal Medicine
DX: K52.9 Noninfective gastroenteritis and colitis, unspecified (principal)
CPT/HCPCS: 80053; 80164; 83735; 85025

== ENCOUNTER 2021-05-21 12:28 | Outpatient (CLI) | payer MEDICARE, MEDICAID, SELFPAY ==
[2021-05-21 13:19] LABS: Basophils % 0.8 %; Eosinophils # 0.2 10^3/uL (0.0-0.8); Eosinophils % 4.6 %; Hematocrit 35.2 % (42.0-52.0); Hemoglobin 10.8 g/dL (11.7-16.6); Lymphocytes # 1.4 10^3/uL (0.8-4.8); Lymphocytes % 27.2 %; Mean Corpuscular HGB Conc 30.7 g/dL (30.0-36.0); Mean Corpuscular Volume 107.6 fl (80-94); Mean Platelet Volume 9.9 fL (7.4-10.4); Monocytes # 0.6 10^3/uL (0.2-0.9); Monocytes % 11.5 %; Neutrophils # 2.74 10^3/uL (1.8-7.7); Neutrophils % 55.3 %; Nucleated Red Blood Cells % 0 %; Platelet Count 225 10^3/cmm (130-400); Red Blood Count 3.27 10^6/uL (4.1-5.3); Red Cell Distribution Width 16.5 % (12.1-15.1)
[2021-05-21 13:48] LABS: Folate Level 17.3 ng/mL (4.5-32.2)
[2021-05-21 13:49] LABS: 25 Hydroxy Vitamin D 70 ng/mL (30-100); Ferritin 10 ng/mL (30-400); Iron 60 ug/dL (59-158); Percent Saturation 16.8 % (20-50); Total Iron Binding Capacity 356 mcg/dl; Unsaturated Iron Binding 296 ug/dL (112-347); Vitamin B12 647 pg/mL (232-1245)
[2021-05-24 11:47] LABS: Zinc Level, Serum or Plasma 56 mcg/dL (60-130)
[2021-05-29 11:50] LABS: Miscellaneous Test SEE COMMENTS
== END 2021-05-21 12:29 | disposition home or self-care (01) ==
LOC: LAB 12:29
PROVIDERS: PCP Internal Medicine; Visit Provider Internal Medicine
DX: K52.9 Noninfective gastroenteritis and colitis, unspecified (principal)
CPT/HCPCS: 82306; 82607; 82728; 82746; 83516; 83540; 83550; 84080; 84630; 85025

== ENCOUNTER 2021-10-29 13:48 | Outpatient (RCR) | payer MEDICARE, MEDICAID, SELFPAY | END 2021-11-07 23:59 | disposition home or self-care (01) | LOC: SPT 13:48 | PROVIDERS: PCP Internal Medicine; Referring Provider Internal Medicine; Visit Provider Internal Medicine | DX: R26.89 Other abnormalities of gait and mobility (principal) | CPT/HCPCS: 97112; 97161 ==

== ENCOUNTER 2021-11-08 06:00 | Outpatient (RCR) | payer MEDICARE, MEDICAID, SELFPAY | END 2021-12-08 23:59 | disposition home or self-care (01) | LOC: SPT 06:00 | PROVIDERS: PCP Internal Medicine; Referring Provider Internal Medicine; Visit Provider Internal Medicine | DX: R26.89 Other abnormalities of gait and mobility (principal) | CPT/HCPCS: 97112 ==

== ENCOUNTER 2024-02-13 18:40 | Inpatient (IN) | payer MEDICARE, MEDICAID, SELFPAY ==
[2024-02-13] VITALS (8 sets, daily range): BP systolic 79–110; BP diastolic 48–68; PULSE 74–115; RESP 18; TEMP 36.3; O2SAT 92–98
--- NOTE | 2024-02-13 19:22 | CTR_ITS ---
PROCEDURE INFORMATION: Exam: CT Abdomen And Pelvis With Contrast Exam date and time: 02/13/2024 7:58 PM Age: 28 years old Clinical indication: Bloating and other: Diarrhea; Prior surgery; Surgery date: 6+ months; Surgery type: Colostomy reversal; Patient HX: Abd distention with diarrhea. History of leukemia. ; Additional info: Abd distension, diarrhea TECHNIQUE: Imaging protocol: Computed tomography of the abdomen and pelvis with contrast. Radiation optimization: All CT scans at this facility use at least one of these dose optimization techniques: automated exposure control; mA and/or kV adjustment per patient size (includes targeted exams where dose is matched to clinical indication); or iterative reconstruction. Contrast material: OMNI 350; Contrast volume: 100 ml; Contrast route: INTRAVENOUS (IV); COMPARISON: CT abdomen pelvis w con* [id number] 04/14/2021 10:52 PM RADIATION DOSE METRICS: Total DLP (mGy-cm): 946.83 FINDINGS: Liver: Normal. No mass. Gallbladder and biliary ducts: Normal. No calcified stones. No ductal dilation. Pancreas: Normal. No ductal dilation. Spleen: Normal. No splenomegaly. Adrenal glands: Normal. No mass. Kidneys and ureters: Normal. No hydronephrosis. Stomach and bowel: Unremarkable. No obstruction. No mucosal thickening. Appendix: The appendix is not visualized but there are no secondary signs of acute appendicitis. Intraperitoneal space: Unremarkable. No free air. No significant fluid collection. Vasculature: Unremarkable. No abdominal aortic aneurysm. Lymph nodes: Unremarkable. No enlarged lymph nodes. Urinary bladder: Unremarkable as visualized. Reproductive: Unremarkable as visualized. Bones/joints: Unremarkable. No acute fracture. Soft tissues: Unremarkable. Other findings: Diffuse gaseous and fluid distended loops of small and large bowel with no transition point or evidence of obstruction. CT/CT abdomen pelvis w con* [id number] IMPRESSION: Diffuse gaseous and fluid distended loops of small and large bowel with no transition point or evidence of obstruction.
--- NOTE | 2024-02-13 19:44 | CTR_ITS ---
PROCEDURE INFORMATION: Exam: CT Head Without Contrast Exam date and time: 02/13/2024 7:55 PM Age: 28 years old Clinical indication: Altered mental status/memory loss; Patient HX: Per family patient has become non verbal today. Recent medication change for seizure disorder. History of leukemia. ; Additional info: AMS TECHNIQUE: Imaging protocol: Computed tomography of the head without contrast. Radiation optimization: All CT scans at this facility use at least one of these dose optimization techniques: automated exposure control; mA and/or kV adjustment per patient size (includes targeted exams where dose is matched to clinical indication); or iterative reconstruction. COMPARISON: CT head wo con* [id number] 04/08/2021 10:01 PM RADIATION DOSE METRICS: Total DLP (mGy-cm): 1096.38 FINDINGS: Brain: Normal. No hemorrhage. Unremarkable white matter. No mass effect. Cerebral ventricles: No ventriculomegaly. Paranasal sinuses: Visualized sinuses are unremarkable. No fluid levels. Mastoid air cells: Visualized mastoid air cells are well aerated. Bones: Unremarkable. No acute fracture. Soft tissues: Unremarkable. Other findings: Scattered diffuse benign-appearing parenchymal calcifications similar to prior exam. CT/CT head wo con* [id number] IMPRESSION: Negative for intracranial hemorrhage or mass effect
[2024-02-13] MEDS: iohexol 350 mg/mL 500 mL Btl (per mL) IV (19:58)
[2024-02-13] MEDS: sodium chloride 0.9% 1,000 ML 999 ML IV ×2 (20:25→21:10)
[2024-02-13 21:11] LABS: Basophils % 0.2 %; Hematocrit 43.5 % (37-53); Lymphocytes # 0.3 10^3/uL (0.8-4.8); Lymphocytes % 2.2 %; Mean Corpuscular HGB Conc 30.1 g/dL (30-55); Mean Corpuscular Volume 106.1 fl (82-101); Mean Platelet Volume 8.5 fL (7.4-10.4); Monocytes # 0.9 10^3/uL (0.2-0.9); Monocytes % 6.2 %; Neutrophils # 12.82 10^3/uL (1.8-7.7); Nucleated Red Blood Cells % 0 %; Platelet Count 267 10^3/cmm (157-399); Red Cell Distribution Width 12.6 % (12.1-15.1)
--- NOTE | 2024-02-13 21:13 | PC.NURSE ---
Addendum entered by Mari Magana RN 02/13/24 21:15: Family also stated that the reason they did not inform nursing staff that patient was having a seizure was because his alarms were all going off. Original Note: When nurse went to administer second bag of saline, family informed this nurse that patient had a seizure lasting approximately 3-5 minutes at approximately 2050, in which he curled up in a ball and moaned. When nurse arrived into room, family was also administering home seizure meds. Dr Coyle was informed of the event details, no further orders received at this time.
--- NOTE | 2024-02-13 21:30 | W.ED.WEAKNES ---
HPI - Weakness General: Chief complaint: Weakness Stated complaint: n/v/d Time Seen by Provider: 02/13/24 19:01 History of Present Illness: 28-year-old male patient with a history of developmental delay, significant bowel surgery history, history of intermittent bowel obstruction, and seizure disorder. 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 He presents with what sounded to this family like significant abdominal pain tonight, with multiple episodes of diarrhea today. No vomiting or fever. Family does not believe he had a seizure at home. [facility] PFSH: Medical History Enteritis Small bowel obstruction Transaminitis Enterocolitis Anemia Mental disability Diarrhea Hematuria Seizure disorder Leukemia Hypothyroidism Neurocognitive disorder Surgical History S/P placement of VNS (vagus nerve stimulation) device History of colostomy / reversal Physical Exam Const: EXAM LIMITATIONS: other limitations GENERAL APPEARANCE: cooperative and frail appearing NUTRITIONAL APPEARANCE: thin ORIENTATION/CONSCIOUSNESS: Yes awake OTHER: nonverbal currently HENMT: COMMON NORMALS: normocephalic, atraumatic and Normal external nose present HEAD & SCALP: normocephalic and atraumatic FACE & SINUS: face symmetric NOSE: Normal external nose present Eye: GENERAL EYE: appearance normal, both eyes and all related structures Neck/C-Spine: GENERAL: Yes trachea midline and No anterior neck swelling Resp: COMMON NORMALS: normal respiratory effort, No use of accessory muscles and clear to auscultation bilaterally AUSCULTATION: clear to auscultation bilaterally Cardio: COMMON NORMALS: regular rate and regular rhythm RATE: regular rate RHYTHM: regular rhythm GI: COMMON NORMALS: Soft to palpation AUSCULTATION: Yes Hyperactive bowel sounds present PALPATION: Yes Soft to palpation Neuro: ANG COMA SCALE: document GCS findings Ang coma scale eye opening: Spontaneous Ang coma scale verbal response: None [place] coma scale motor response: Localising [place] coma scale total score: 10 Course Vital Signs: Vital signs: Vital Signs Temperature 101.2 F H 02/14/24 00:30 Pulse Rate 103 H 02/14/24 02:30 Respiratory Rate 20 H 02/14/24 02:30 Blood Pressure 88/54 02/14/24 02:30 Pulse Oximetry 92 02/14/24 02:30 Oxygen Delivery Me thod Room Air 02/14/24 02:30 MDM - Weakness Medical Decision Making The patient started out afebrile, temperature now 101.2. Blood pressure has been mildly soft. 90s over 50s. Saturations are good. White blood cell count is 14. Bicarbonate is 19. Potassium is 3.4. CT shows diffuse gas and fluid distended loops of small bowel and large bowel. No evidence of obstruction. The patient has been hydrated here. I do not believe he will do well if sent home, given the extent of his CT findings, laboratory findings and febrile nature of his illness. He will be admitted for IV fluid support, symptomatic treatment, etc. Spoke with hospitalist and she agrees Lab Data 02/13/24 21:06 02/13/24 21:06 Radiology Impressions Abdomen/Pelvis CT 02/13/24 19:22 IMPRESSION: Diffuse gaseous and fluid distended loops of small and large bowel with no transition point or evidence of obstruction. Head CT 02/13/24 19:44 IMPRESSION: Negative for intracranial hemorrhage or mass effect Laboratory Results WBC 14.10 10^3/uL (3.29-11.43) H 02/13/24 21:06 RBC 4.10 10^6/uL (3.85-5.65) 02/13/24 21:06 Hgb 13.10 g/dL (11.27-16.99) 02/13/24 21:06 Hct 43.5 % (37-53) 02/13/24 21:06 MCV 106.1 fl (82-101) H 02/13/24 21:06 MCH 32.0 pg (27-33) 02/13/24 21:06 MCHC 30.1 g/dL (30-55) 02/13/24 21:06 RDW 12.6 % (12.1-15.1) 02/13/24 21:06 Plt Count 267 10^3/cmm (157-399) 02/13/24 21:06 MPV 8.5 fL (7.4-10.4) 02/13/24 21:06 Neut % (Auto) 91.0 % 02/13/24 21:06 Lymph % (Auto) 2.2 % 02/13/24 21: [place] % (Auto) 6.2 % 02/13/24 21:06 Eos % (Auto) 0.0 % 02/13/24 21:06 Baso % (Auto) 0.2 % 02/13/24 21:06 Neut # (Auto) 12.82 10^3/uL (1.8-7.7) H 02/13/24 21:06 Lymph # (Auto) 0.3 10^3/uL (0.8-4.8) L 02/13/24 21:06 [place] # (Auto) 0.9 10^3/uL (0.2-0.9) 02/13/24 21:06 Eos # (Auto) 0.0 10^3/uL (0.0-0.8) 02/13/24 21:06 Baso # (Auto) 0.0 10^3/uL (0.0-0.1) 02/13/24 21:06 Nucleated RBC % (auto) 0 % 02/13/24 21:06 Nucleated RBCs # 0.0 /100WBC 02/13/24 21:06 Sodium 143 mmol/L (136-145) 02/13/24 21:06 Potassium 3.4 mmol/L (3.5-5.1) L 02/13/24 21:06 Chloride 112 mmol/L (98-107) H 02/13/24 21:06 Carbon Dioxide 19 mmol/L (22-29) L 02/13/24 21:06 Anion Gap 15.4 (5-19) 02/13/24 21:06 BUN 15 mg/dL (6-20) 02/13/24 21:06 Creatinine 0.2 mg/dL (0.7-1.2) L 02/13/24 21:06 GFR Calculation 566.0 mL/min (90-130) H 02/13/24 21:06 Glucose 110 mg/dL (65-115) 02/13/24 21:06 Calculated Osmolality 297 mOsm/kg (285-295) H 02/13/24 21:06 Lactic Acid 1.7 mmol/L (0.5-2.2) 02/13/24 21:06 Calcium 6.8 mg/dL (8.5-10.5) L 02/13/24 21:06 Total Bilirubin 0.2 mg/dL (0.15-1.2) 02/13/24 21:06 AST 116 U/L (0-40) H 02/13/24 21:06 ALT 116 U/L (0-41) H 02/13/24 21:06 Alkaline Phosphatase 100 U/L (40-130) 02/13/24 21:06 C-Reactive Protein 3.4 mg/L (0.0-4.9) 02/13/24 21:06 Total Protein 4.9 g/dL (6.6-8.7) L 02/13/24 21:06 Albumin 3.2 g/dL (3.5-5.2) L 02/13/24 21:06 Globulin 1.7 g/dL (1.3-4.6) 02/13/24 21:06 Lipase 1180 U/L (13-60) H 02/13/24 21:[address] [place] (Yellow) A 02/13/24 21:41 Urine Appearance Clear (CLEAR) 02/13/24 21:41 Urine pH 6.5 (5-7) 02/13/24 21:41 Ur Specific [place] 1.028 (1.005-1.030) 02/13/24 21:41 Urine Protein Negative (Negative) 02/13/24 21:41 Urine Glucose (UA) Negative (Normal) 02/13/24 21:41 Urine Ketones Trace (Negative) 02/13/24 21:41 Urine Blood Negative (Negative) 02/13/24 21:41 Urine Nitrate Negative (Negative) 02/13/24 21:41 Urine Bilirubin Negative (Negative) 02/13/24 21:41 Urine Urobilinogen 1.0 mg/dL (Negative) 02/13/24 21:41 Ur Leukocyte Esterase Negative (Negative) 02/13/24 21:41 Urine RBC 0-2 /hpf (0-2) 02/13/24 21:41 Urine WBC 0-5 /hpf (0-5) 02/13/24 21:41 Ur Squamous Epith Cells 0-5 /hpf (0-5) 02/13/24 21:41 Amorphous Sediment Not Reportable 02/13/24 21:41 Urine Bacteria None seen /hpf (NONE) 02/13/24 21:41 Hyaline Casts 1.21 /lpf 02/13/24 21:41 Valproic Acid 66.7 ug/mL (50-100) 02/13/24 21:06 All radiology interpretation(s) finalized by discharge Discharge Plan Discharge Patient Disposition: Admitted As Inpatient Admit Provider: Monserrat Hernandez Clinical Impression: Gastroenteritis Condition: Fair Coding Level of Care Code ED Manufacturing Test Engineer for Chg Fwd Related Data Home Medications Medication Instructions Recorded Confirmed diazepam 10 mg tablet 10 mg PO BID PRN Anxiety 10/05/19 02/14/24 divalproex 125 mg capsule,delayed See Rx Instructions .Route .COMPLEX 10/05/19 02/14/24 release sprinkle (Depakote Sprinkles) levothyroxine 50 mcg tablet 50 mcg PO DAILY 10/05/19 02/14/24 (Synthroid) rufinamide 400 mg tablet (Banzel) 1,200 mg PO BID 10/05/19 02/14/24 brivaracetam 25 mg tablet 50 mg PO 02/14/24 (Briviact) diazepam 15 mg rectal kit 15 mg [place] PRN 02/14/24 02/14/24 diazepam 20 mg rectal kit 20 mg [place] PRN 02/14/24 02/14/24 midazolam 5 mg/spray (0.1 mL) 1 spray intranasal PRN PRN Seizures 02/14/24 02/14/24 nasal spray (Nayzilam) Allergies Allergy/AdvReac Type Severity Reaction Status Date / Time No Known Allergies Allergy Unverified 04/14/21 21:02
[2024-02-13 21:36] LABS: Alanine Aminotransferase 116 U/L (0-41); Albumin Level 3.2 g/dL (3.5-5.2); Alkaline Phosphatase 100 U/L (40-130); Anion Gap 15.4 (5-19); Aspartate Amino Transferase 116 U/L (0-40); Blood Urea Nitrogen 15 mg/dL (6-20); C Reactive Protein 3.4 mg/L (0.0-4.9); Calcium 6.8 mg/dL (8.5-10.5); Carbon Dioxide 19 mmol/L (22-29); Chloride 112 mmol/L (98-107); Globulin 1.7 g/dL (1.3-4.6); Glucose 110 mg/dL (65-115); Osmolality Calculated 297 mOsm/kg (285-295); Potassium 3.4 mmol/L (3.5-5.1); Sodium 143 mmol/L (136-145); Total Bilirubin 0.2 mg/dL (0.15-1.2); Total Protein 4.9 g/dL (6.6-8.7)
[2024-02-13 21:37] LABS: Lactic Sepsis W/Reflex 1.7 mmol/L (0.5-2.2)
[2024-02-13 21:50] LABS: Bilirubin Urine Negative (Negative); Blood Urine Negative (Negative); Glucose Urine UA Negative (Normal); Ketones Urine Trace (Negative); Leukocyte Esterase Urine Negative (Negative); Nitrate Urine Negative (Negative); Protein Urine Negative (Negative); Specific Gravity, Urine 1.028 (1.005-1.030); Urine Appearance Clear (CLEAR); pH Urine 6.5 (5-7)
[2024-02-13 21:55] LABS: Add Urine Microscopic? YES; Bacteria Urine None Seen /hpf; Hyaline Casts Urine 1.21 /lpf; RBC Urine 0-2 /hpf (0-2); Squamous Epithelial Cell Urine 0-5 /hpf (0-5); WBC Urine 0-5 /hpf (0-5)
[2024-02-13 22:03] LABS: Lipase 1180 U/L (13-60)
[2024-02-13 22:04] LABS: Urine Color Orange (Yellow)
[2024-02-13 23:27] LABS: Valproic Acid Level 66.7 ug/mL (50-100)
--- NOTE | 2024-02-13 23:56 | PC.NURSE ---
Report was called to Megaan SAAVEDRA in ICU. All questions and concerns were addressed at time of report.
[2024-02-14] VITALS (64 sets, daily range): BP systolic 78–102; BP diastolic 41–65; PULSE 84–109; RESP 13–24; TEMP 36.3–38.4; O2SAT 83–97; BMI 16.5
--- NOTE | 2024-02-14 00:10 | PC.NURSE ---
Arrival to ICU 5: Pt arrived to ICU 5 @0005. Continuos cardiac monitoring initiated.
--- NOTE | 2024-02-14 03:26 | PC.NURSE ---
Addendum entered by Meagan Garcia RN 02/14/24 04:15: Called Dr. Hernandez @[id number] to notify of low BP's. New order for 500ml NS Bolus ONCE NOW. Original Note: Low BP: Dr. Hernandez notified of persistently soft BP @0320, no new orders at this time.
[2024-02-14 03:59] LABS: C.Diff PCR (Lab) NEGATIVE (Negative)
[2024-02-14] MEDS: sodium chloride 0.9% 500 ML 999 ML IV ×2 (04:24→23:29)
--- NOTE | 2024-02-14 05:00 | P.HP_ITS ---
Providers/Chief Complaint 2 Admitting Physician: Monserrat Hernandez MD Primary Care Provider: Jon Grider DO Chief Complaint: n/v/d History of Present Illness Rm Baum is a 28 year old male with a past medical history of AL L, in remission, intellectual disability, persistent breakthrough seizures where and he continues to have daily seizures and spite of having tried several different antiepileptic medications. He has a history of previous abdominal surgeries and carries a history of ileus and generalized abdominal distention in the past. His last admission here for the same was in 2020. He is brought today to the emergency room with complaints of diarrhea that started 1 day ago. Patient has been having several episodes of diarrhea and complaining of abdominal discomfort. He has had some nausea but has not vomited. While being assisted to to the bathroom by his brother, patient had an episode where he appeared to have presyncope. His mother states that he became extremely pale diaphoretic and looked like he was going to pass out. He did not lose consciousness. He was brought to the emergency room for further evaluation. Patient does have a history of C. difficile in the past but has not had an episode in several years. In the ER patient was noted to have 2-3 episodes of short seizure episodes. His mother states that patient has multiple breakthrough seizures a day. They have tried several different antiseizure medications in the past and are constantly working with his neurologist but no combination seems to have helped him consistently. They use intranasal and rectal Ativan as needed. While he is here his mother would like to manage his seizures resolved. Patient recently switched to generic version of Briviact and his mom is wondering if the generic version may be a cause of his diarrhea. Review of Systems 2 General: Reports: 10 or more systems reviewed and unremarkable except in HPI and below Const: Denies: fever(s), chills or body aches Eyes: Denies: change in vision, blurry vision or photophobia ENMT: Reports: hoarseness; Denies: throat pain, enlarged tonsils, odynophagia or nasal congestion Card: Denies: chest pain, palpitations, irregular heart rhythm, edema, swelling of feet/ankles, lightheadedness, pre-syncope, dyspnea on exertion or orthopnea Resp: Denies: dyspnea, productive cough, non-productive cough, wheezing, stridor, pain on inspiration, change in phlegm color, hemoptysis or chest congestion GI: Denies: abdominal pain, nausea, vomiting, hematemesis, coffee ground emesis, dysphagia, heartburn, diarrhea, constipation, GI cramping, change in stool character, hematochezia or melena : Denies: flank pain, dysuria, urinary frequency, urinary urgency, urinary hesitancy or hematuria Musc: Denies: neck pain, back pain, extremity pain, joint swelling, joint warmth or deformity Neuro: Denies: headache(s), numbness in extremities, weakness in extremities, sensory changes, difficulty walking, frequent falls, dizziness, vertigo, behavioral changes, Slurred speech present or seizure-like activity Psych: Denies: anxiety, depression, suicidal ideation or homicidal ideation Endo: Denies: polyuria, polydipsia, tired all the time, cold intolerance or hot flashes [place]/Lymph: Denies: easy bruising or easy bleeding Medications/Allergies Home Medications Medication Instructions Recorded Confirmed Last Taken Type diazepam 10 mg tablet 10 mg PO BID PRN Anxiety 10/05/19 02/14/24 02/09/24 History divalproex 125 mg capsule,delayed See Rx Instructions .Route .COMPLEX 10/05/19 02/14/24 02/13/24 History release sprinkle (Depakote Sprinkles) levothyroxine 50 mcg tablet 50 mcg PO DAILY 10/05/19 02/14/24 02/13/24 History (Synthroid) rufinamide 400 mg tablet (Banzel) 1,200 mg PO BID 10/05/19 02/14/24 02/13/24 History brivaracetam 25 mg tablet 50 mg PO 02/14/24 02/13/24 History (Briviact) diazepam 15 mg rectal kit 15 mg [place] PRN 02/14/24 02/14/24 Unknown History diazepam 20 mg rectal kit 20 mg [place] PRN 02/14/24 02/14/24 Unknown History midazolam 5 mg/spray (0.1 mL) 1 spray intranasal PRN PRN Seizures 02/14/24 02/14/24 Unknown History nasal spray (Nayzilam) midazolam 5 mg/spray (0.1 mL) intranasal 02/14/24 Unknown History nasal spray (Nayzilam) midazolam 5 mg/spray (0.1 mL) intranasal 02/14/24 Unknown History nasal spray (Nayzilam) Allergies Allergy/AdvReac Type Severity Reaction Status Date / Time No Known Allergies Allergy Unverified 04/14/21 21:02 PFSH Acute 2 PFSH: Medical History Enteritis Small bowel obstruction Transaminitis Enterocolitis Anemia Mental disability Diarrhea Hematuria Seizure disorder Leukemia Hypothyroidism Neurocognitive disorder Surgical History S/P placement of VNS (vagus nerve stimulation) device History of colostomy / reversal Vitals/I&O/Wt Last Vital Signs Temp 100.2 F H 02/14/24 03:30 Pulse 86 02/14/24 07:42 Resp 15 02/14/24 07:15 BP 92/51 02/14/24 07:15 Pulse Ox 94 02/14/24 07:42 O2 Del Method Room Air 02/14/24 07:42 02/13/24 02/14/24 02/14/24 22:59 06:59 14:59 Intake Total 749.25 / 749.25 1500 / 2249.25 50 / 50 Balance 749.25 / 749.25 1500 / 2249.25 50 / 50 Weight last 48 hrs Weight 52.39 kg Physical Exam 2 Narrative: General: No acute distress, AO x1-2, difficult to assess orientation HEENT: PERRLA, pupils bilaterally equal and reactive, pallors not present Chest: Normal vesicular breath sounds, no added sounds, equal good air entry bilaterally CVS: S1-S2 regular, no murmurs Abdomen: Soft, nontender, no organomegaly Data 02/13/24 21:06 02/13/24 21:06 Other Labs: Radiology Impressions Abdomen/Pelvis CT 02/13/24 19:22 IMPRESSION: Diffuse gaseous and fluid distended loops of small and large bowel with no transition point or evidence of obstruction. Head CT 02/13/24 19:44 IMPRESSION: Negative for intracranial hemorrhage or mass effect Laboratory Results WBC 14.10 10^3/uL (3.29-11.43) H 02/13/24 21:06 RBC 4.10 10^6/uL (3.85-5.65) 02/13/24 21:06 Hgb 13.10 g/dL (11.27-16.99) 02/13/24 21:06 Hct 43.5 % (37-53) 02/13/24 21:06 MCV 106.1 fl (82-101) H 02/13/24 21:06 MCH 32.0 pg (27-33) 02/13/24 21:06 MCHC 30.1 g/dL (30-55) 02/13/24 21:06 RDW 12.6 % (12.1-15.1) 02/13/24 21:06 Plt Count 267 10^3/cmm (157-399) 02/13/24 21:06 MPV 8.5 fL (7.4-10.4) 02/13/24 21:06 Neut % (Auto) 91.0 % 02/13/24 21:06 Lymph % (Auto) 2.2 % 02/13/24 21:06 [place] % (Auto) 6.2 % 02/13/24 21:06 Eos % (Auto) 0.0 % 02/13/24 21:06 Baso % (Auto) 0.2 % 02/13/24 21:06 Neut # (Auto) 12.82 10^3/uL (1.8-7.7) H 02/13/24 21:06 Lymph # (Auto) 0.3 10^3/uL (0.8-4.8) L 02/13/24 21:06 [place] # (Auto) 0.9 10^3/uL (0.2-0.9) 02/13/24 21:06 Eos # (Auto) 0.0 10^3/uL (0.0-0.8) 02/13/24 21:06 Baso # (Auto) 0.0 10^3/uL (0.0-0.1) 02/13/24 21:06 Nucleated RBC % (auto) 0 % 02/13/24 21: Nucleated RBCs # 0.0 /100WBC 02/13/24 21:06 Sodium 143 mmol/L (136-145) 02/13/24 21:06 Potassium 3.4 mmol/L (3.5-5.1) L 02/13/24 21:06 Chloride 112 mmol/L (98-107) H 02/13/24 21:06 Carbon Dioxide 19 mmol/L (22-29) L 02/13/24 21:06 Anion Gap 15.4 (5-19) 02/13/24 21:06 BUN 15 mg/dL (6-20) 02/13/24 21:06 Creatinine 0.2 mg/dL (0.7-1.2) L 02/13/24 21:06 GFR Calculation 566.0 mL/min (90-130) H 02/13/24 21:06 Glucose 110 mg/dL (65-115) 02/13/24 21:06 Calculated Osmolality 297 mOsm/kg (285-295) H 02/13/24 21:06 Lactic Acid 1.7 mmol/L (0.5-2.2) 02/13/24 21:06 Calcium 6.8 mg/dL (8.5-10.5) L 02/13/24 21:06 Total Bilirubin 0.2 mg/dL (0.15-1.2) 02/13/24 21:06 AST 116 U/L (0-40) H 02/13/24 21:06 ALT 116 U/L (0-41) H 02/13/24 21:06 Alkaline Phosphatase 100 U/L (40-130) 02/13/24 21:06 C-Reactive Protein 3.4 mg/L (0.0-4.9) 02/13/24 21:06 Total Protein 4.9 g/dL (6.6-8.7) L 02/13/24 21:06 Albumin 3.2 g/dL (3.5-5.2) L 02/13/24 21:06 Globulin 1.7 g/dL (1.3-4.6) 02/13/24 21:06 Lipase 1180 U/L (13-60) H 02/13/24 21:06 Urine Color [place] (Yellow) A 02/13/24 21:41 Urine Appearance Clear (CLEAR) 02/13/24 21:41 Urine pH 6.5 (5-7) 02/13/24 21:41 Ur Specific [place] 1.028 (1.005-1.030) 02/13/24 21:41 Urine Protein Negative (Negative) 02/13/24 21:41 Urine Glucose (UA) Negative (Normal) 02/13/24 21:41 Urine Ketones Trace (Negative) 02/13/24 21:41 Urine Blood Negative (Negative) 02/13/24 21:41 Urine Nitrate Negative (Negative) 02/13/24 21:41 Urine Bilirubin Negative (Negative) 02/13/24 21:41 Urine Urobilinogen 1.0 mg/dL (Negative) 02/13/24 21:41 Ur Leukocyte Esterase Negative (Negative) 02/13/24 21:41 Urine RBC 0-2 /hpf (0-2) 02/13/24 21:41 Urine WBC 0-5 /hpf (0-5) 02/13/24 21:41 Ur Squamous Epith Cells 0-5 /hpf (0-5) 02/13/24 21:41 Amorphous Sediment Not Reportable 02/13/24 21:41 Urine Bacteria None seen /hpf (NONE) 02/13/24 21:41 Hyaline Casts 1.21 /lpf 02/13/24 21:41 Valproic Acid 66.7 ug/mL (50-100) 02/13/24 21:06 Hepatitis A IgM Ab Non-reactive (Nonreactive) 02/13/24 21:06 Hep Bs Antigen Non-reactive (Nonreactive) 02/13/24 21: Hep Bs Antibody < 3.5 (11.5-1000) L 02/13/24 21:06 Hep B Core Total Ab Non-reactive (Nonreactive) 02/13/24 21:06 Hepatitis C Antibody Non-reactive (Nonreactive) 02/13/24 21:06 A&P Assessment and plan (1) Gastroenteritis: (2) Ileus: (3) Breakthrough seizure: Plan 28-year-old male with comorbidities as listed above presenting to the emergency room today with complaints of abdominal pain and persistent diarrhea. Noted to have 2 breakthrough seizures in the emergency room, however his mom states that this frequency is not unusual for him. CT of the abdomen and pelvis today showing diffuse gaseous and fluid distended loops of small and large bowel with no transition point or evidence of obstruction. Noted to have fever 100.2 Fahrenheit. Stat blood cultures ordered. C. difficile taken and pending, does have a history of the same. Overall findings may be suggestive of acute gastroenteritis which may be viral versus bacterial in etiology. Start piperacillin/tazobactam empirically for treatment As needed Zofran for nausea, he has not yet vomited. Check respiratory viral panel as may be related to acute viral illness. Noted to have 2 breakthrough seizures in the emergency room, his mother states that breakthrough seizure frequency is not unusual for him. She would like as much as possible to be able to manage his seizure medications while in the hospital. Valproate level is currently noted to be adequate. Continue divalproex sprinkles at home dosing , continue Briviact, continue Banzel at home dosing. Mother would like to use intranasal Ativan and rectal Ativan as much as possible. Discussed with her that should patient have a persistent seizure, we would need to intervene and likely use IV Ativan to stop the seizure. He may additionally require further IV medications should he go into status epilepticus. In the interim monitor closely in the ICU for any worsening in seizure frequency/development of status epilepticus. Current seizure episodes manifesting as sudden jerking and flexion movements at upper and lower extremities lasting a few seconds at a time. DVT prophylaxis: Lovenox 40 Full code Attestations 2 Medical Necessity Statement*: Greater than 2 midnight stay is anticipated Coding Level of Care Code Acute Code for Chg Fwd High MDM includes number and complexity of problems actively addressed during encounter, amount and/or complexity of data reviewed/ordered and described risk of complication, morbidity or mortality of management as documented Diagnoses Gastroenteritis K52.9 Ileus K56.7 Breakthrough seizure G40.919
[2024-02-14] MEDS: dextrose 5%-sod chloride 0.9% 1,000 ML 100 ML IV ×2 (06:00→16:17)
[2024-02-14] MEDS: calcium gluconate 0.9% NaCL 1 GM/50 ML PREMIX IV (06:08)
[2024-02-14] MEDS: enoxaparin 40 mg/0.4 mL Syringe SUBCUT (06:09)
[2024-02-14] MEDS: famotidine 20 mg/2 mL INJ IVP ×2 (06:12→17:37)
[2024-02-14 06:22] LABS: Hepatitis A Antibody IgM Non-Reactive (Nonreactive); Hepatitis B Core AB, Total Non-Reactive (Nonreactive); Hepatitis B Surface AB < 3.5 (11.5-1000); Hepatitis B Surface Antigen Non-Reactive (Nonreactive); Hepatitis C Virus Antibody Non-Reactive (Nonreactive)
--- NOTE | 2024-02-14 06:37 | PC.NURSE ---
Seizure: Witnessed by this RN, less than a minute. Pt made a sound like he was choking and became unresponsive, eyes rolled back, body became stiff and arms lightly shook. Dr. Hernandez in room to see pt shortly after. No medications given at this time. Dr. Hernandez aware. Pt recovered 15 minuted after, is alert and smiling at his mom.
[2024-02-14] MEDS: piperacillin-tazobactam 3.375 GM in sodium chloride 0.9% (plus) 50 ML IV ×3 (07:18→21:50)
--- NOTE | 2024-02-14 08:00 | PC.NURSE ---
narcotics counted and locked in draw in room , verified with pharmacy and with upper administration .log sheet in place
--- NOTE | 2024-02-14 08:35 | USR_ITS ---
PROCEDURE INFORMATION: Exam: US Abdomen, Limited; Right Upper Quadrant Exam date and time: 02/14/2024 2:44 PM Age: 28 years old Clinical indication: Screening exam; Other: Liver, gallbladder, pancreas; Prior surgery; Surgery date: 6+ months; Surgery type: Patients mother says he had surgery on intestine when he was a child TECHNIQUE: Imaging protocol: Real time ultrasound of the abdomen with image documentation. Limited exam focused on the right upper quadrant. COMPARISON: CT abdomen pelvis w con* [id number] 02/13/2024 7:58 PM FINDINGS: Liver: Normal. No masses. Right hepatic lobe measures 11.4 cm. Gallbladder: Normal. No gallstones. There is no gallbladder wall thickening. Biliary ducts: Normal. No stones. No dilation. Common bile duct measures 0.3 cm in caliber. Pancreas: Largely obscured by bowel gas. Right kidney: Partially obscured by bowel gas. No definite mass. No hydronephrosis. Right kidney measures 10.6 cm in length. Aorta: Mid abdominal aorta measures 1.6 cm. Inferior vena cava: Upper IVC measures 1.3 cm in diameter. Portal venous: Main portal vein measures 1.4 cm in demonstrates hepatopetal flow. US/US gall bladder [id number] IMPRESSION: No acute sonographic findings in the visualized abdomen.
[2024-02-14 09:33] LABS: Ionized Calcium 1.1 mmol/L (1.1-1.4)
--- NOTE | 2024-02-14 09:38 | XRR_ITS ---
PROCEDURE INFORMATION: Exam: XR Chest Exam date and time: 02/14/2024 2:39 PM Age: 28 years old Clinical indication: Prior surgery; Surgery date: 6+ months; Surgery type: Vagal nerve stimulator; Patient HX: Fever; Leukocytosis; Seizure disorder TECHNIQUE: Imaging protocol: Radiologic exam of the chest. Views: 1 view. COMPARISON: CR XR chest 1V portable [id number] 04/16/2021 3:12 PM FINDINGS: Tubes, catheters and devices: Left chest wall neurostimulator is in stable position with a lead coursing into the left lower neck. Overlying monitoring leads. Lungs: Unremarkable. No consolidation. Pleural spaces: Unremarkable. No pleural effusion. No pneumothorax. Heart/Mediastinum: Unremarkable. No cardiomegaly. Bones/joints: Unremarkable. XR/XR chest 1V portable [id number] IMPRESSION: No acute cardiopulmonary findings.
[2024-02-14] MEDS: divalproex Sprinkles 125 mg Capsule 750 MG PO (09:47)
[2024-02-14] MEDS: levothyroxine 50 mcg Tablet PO (09:48)
[2024-02-14] MEDS: BRIVIACT 50 MG 3 EACH PO ×2 (09:48→20:03)
[2024-02-14 10:00] LABS: Estmated Average Glucose 88; Hemoglobin A1C 4.7 % (4.0-6.0)
[2024-02-14 10:00] LABS: Gamma Glutamyl Transferase 96 U/L (8-61)
[2024-02-14 10:01] LABS: Acetaminophen < 5.0 ug/mL (10-30); Alcohol Level < 10 mg/dL (0-10); Chol HDL Ratio 2.41 mg/dL (1.0-5.00); Cholesterol 111 mg/dL (0-200); Ferritin 80 ng/mL (30-400); HDL Cholesterol 46 mg/dL (60-100); LDL Cholesterol Calculated 50 mg/dL (50-129); LDL HDL Ratio 1.09 RATIO (0.00-3.22); Salicylate < 0.3 mg/dL (3-10); Triglycerides 76 mg/dL (0-150)
[2024-02-14 10:04] LABS: Calcium 8.2 mg/dL (8.5-10.5)
[2024-02-14 10:05] LABS: HIV 1 & 2 Antibody Non-Reactive (Non-Reactiv); HIV 1 & 2 Antigen Non-Reactive (Non-Reactiv)
[2024-02-14 10:07] LABS: Procalcitonin 0.26 ng/mL (0-0.5)
[2024-02-14 10:08] LABS: Adenovirus Not Detected (NOT DETECT); Chlamydia Pneumoniae Not Detected (NOT DETECT); Coronavirus 229E,HKU1,NL63,OC4 Not Detected (NOT DETECT); Human Metapneumovirus Not Detected (NOT DETECT); Human Rhinovirus/Enterovirus Not Detected (NOT DETECT); Influenza A Not Detected (NOT DETECT); Influenza A H1 Not Detected (NOT DETECT); Influenza A H1-2009 Not Detected (NOT DETECT); Influenza A H3 Not Detected (NOT DETECT); Influenza B Not Detected (NOT DETECT); Mycoplasma Pneumoniae Not Detected (NOT DETECT); Parainfluenza Virus Type 1 Not Detected (NOT DETECT); Parainfluenza Virus Type 2 Not Detected (NOT DETECT); Parainfluenza Virus Type 3 Not Detected (NOT DETECT); Parainfluenza Virus Type 4 Not Detected (NOT DETECT); Respiratory Syncytial Virus A Not Detected (NOT DETECT); Respiratory Syncytial Virus B Not Detected (NOT DETECT); SARS-COV-2 Not Detected (NOT DETECT)
[2024-02-14 10:11] LABS: Parathyroid Hormone 36.1 pg/mL (15-65)
[2024-02-14 10:15] LABS: Hepatitis A Antibody IgM Non-Reactive (Nonreactive); Hepatitis B Core IgM Non-Reactive (Nonreactive); Hepatitis B Surface Antigen Non-Reactive (Nonreactive); Hepatitis C Virus Antibody Non-Reactive (Nonreactive)
[2024-02-14 10:15] LABS: 25 Hydroxy Vitamin D 41 ng/mL (30-100)
--- NOTE | 2024-02-14 13:35 | P.PN_ITS ---
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, his seizures are managed through a neurologist in [facility], it is an epilepsy center, his last follow-up was a televisit, a few months ago, his dose of Onfi recently was increased, she tells me that his seizures are difficult to control for the last year or so, he continues to have breakthrough seizures, he has been on multiple seizure medications in the past, the current regimen is the regimen that he has been most stable on, he was having complications with another seizure medication, so his neurologist took him off that seizure medication, she tells me that he is being complaining of abdominal pain, diarrhea, no history of food poisoning, no nausea, no vomiting, no sick contacts, recent travel, Vitals/I&O/Wt Last Vital Signs Temp 100.2 F H 02/14/24 03:30 Pulse 94 02/14/24 12:00 Resp 18 02/14/24 12:00 BP 82/52 02/14/24 12:00 Pulse Ox 95 02/14/24 12:00 O2 Del Method Room Air 02/14/24 07:42 02/13/24 02/14/24 02/14/24 22:59 06:59 14:59 Intake Total 749.25 / 749.25 1500 / 2249.25 350 / 350 Balance 749.25 / 749.25 1500 / 2249.25 350 / 350 Weight last 48 hrs Weight 52.39 kg Weight 52.39 kg Physical Exam 2 Const: COMMON NORMALS: no acute distress ORIENTATION/CONSCIOUSNESS: Yes awake and Yes oriented to person; not oriented to place and not oriented to time OTHER: Postictal Resp: COMMON NORMALS: normal respiratory effort, No retractions, No use of accessory muscles and clear to auscultation bilaterally AUSCULTATION: clear to auscultation bilaterally Cardio: COMMON NORMALS: regular rate, regular rhythm, S1 normal heart sound present and S2 normal heart sound present RATE: regular rate RHYTHM: r egular rhythm HEART SOUNDS: S1 normal heart sound present and S2 normal heart sound present GI: COMMON NORMALS: Normal to inspection, nondistended, normoactive bowel sounds present and non-tender Extremity: COMMON NORMALS: no pedal edema Neuro: SENSORIUM/ORIENTATION: Yes oriented to person, No oriented to place and No oriented to time Data 02/13/24 21:06 02/13/24 21:06 Micro: Microbiology 02/14/24 09:25 Blood Culture - Preliminary Blood SPECIMEN COLLECTED 02/14/24 09:28 Blood Culture - Preliminary Blood SPECIMEN COLLECTED A&P Assessment and plan (1) Gastroenteritis: (2) Ileus: (3) Breakthrough seizure: (4) Pancreatitis: (5) Leukocytosis: (6) Hypocalcemia: Plan 28-year-old male with comorbidities as listed above presenting to the emergency room today with complaints of abdominal pain and persistent diarrhea. Noted to have 2 breakthrough seizures in the emergency room, however his mom states that this frequency is not unusual for him. Abdominal pain, diarrhea, febrile up to 1-1.2 -GGT 96, AST 116, ALT 116, lipase 1180 -CT of the abdomen and pelvis today showing diffuse gaseous and fluid distended loops of small and large bowel with no transition point or evidence of obstruction -On examination has no significant abdominal tenderness. Plan -concern for pancreatitis -Serial abdominal exams, clear liquids -Triglycerides ordered -Right upper quadrant ultrasound -Follow blood cultures -C. difficile taken and pending, does have a history of the same. -Start piperacillin/tazobactam empirically for treatment -As needed Zofran for nausea, he has not yet vomited. Noted to have 2 breakthrough seizures in the emergency room, his mother states that breakthrough seizure frequency is not unusual for him. She would like as much as possible to be able to manage his seizure medications while in the hospital. Has a history of breakthrough seizures, difficult to control, has been on multiple seizure medications in the past, mother tells me that they have exhausted all medical treatments/medicine for his seizures, despite this, he continues to have breakthrough seizures, managed by an epilepsy center in [facility]. Valproate level is currently noted to be adequate. Continue divalproex sprinkles at home dosing , continue Briviact, continue Banzel at home dosing. Mother would like to use intranasal Ativan and rectal Ativan as much as possible. Discussed with her that should patient have a persistent seizure, we would need to intervene and likely use IV Ativan to stop the seizure. He may additionally require further IV medications should he go into status epilepticus. -Mother prefers giving medications at bedside, she tells me that she is very involved in her son's care and she is always given his medications, as she notes in the past, -I discussed the morbidity and mortality associated with mixing up his home medications with medications that are given in the hospital, risks of medication overdose, morbidity and mortality associated, risk of duplication, risk of recording error, these are controlled substances, morbidity and mortality discussed, she voiced understanding, all questions answered -I had a detailed discussion with the patient's mother, nursing staff at bedside, if she notices a breakthrough seizure, she may administer his home intranasal Diazepam, versed prn. As scheduled lenore stephens depakote -But as these are controlled substances, she will have to notify nursing staff about when she gives these medications, we will record when these medications are given, the dose that was given, and they are to be kept and a locked box in the room -She should keep all nursing staff up-to-date on the medications that she is giving her son here in the hospital as we need to know -She voiced understanding, all questions answered In the interim monitor closely in the ICU for any worsening in seizure frequency/development of status epilepticus. Current seizure episodes manifesting as sudden jerking and flexion movements at upper and lower extremities lasting a few seconds at a time. DVT prophylaxis: Lovenox 40 Full code Attestations 2 Medical Necessity Statement*: Patient requires hospitalization for breakthrough seizures, fever, diarrhea, abdominal pain Diagnoses Gastroenteritis K52.9 Ileus K56.7 Breakthrough seizure G40.919 Pancreatitis K85.90 Leukocytosis D72.829 Hypocalcemia E83.51
--- NOTE | 2024-02-14 13:37 | PC.NURSE ---
has had several seizures this am less than 2 min each according to mom staff has observed a few where he throws his back and stiffens up , she states that he has these daily and neurologist is aware has recently changed his medication, will say one words and occasional smile with staff. He is incontinent of bowel and bladder unable to obtain urine spec at this time, mother at bedside
[2024-02-14] MEDS: divalproex Sprinkles 125 mg Capsule 625 MG PO (16:17)
[2024-02-14] MEDS: vancomycin 1,000 MG in sodium chloride 0.9% 250 ML 250 MG IV (17:37)
--- NOTE | 2024-02-14 17:43 | PHA.VACGOAL ---
Vancomycin Goal - Goal Vancomycin Goal:: 10-15 mg/L Vancomycin Indication:: Other (SUSPECTED INFECTION) - Therapy Current therapy:: Pip/Tazo (3.375GM Q8H) Day of therpy:: Day []of [] . Actual body weight (kg): 52.39 kg [place] body weight: 73 KG Dosing weight (kg): 52.39 KG - Data Labs: WBC 14.10 10^3/uL (3.29-11.43) H 02/13/24 21:06 RBC 4.10 10^6/uL (3.85-5.65) 02/13/24 21:06 Hgb 13.10 g/dL (11.27-16.99) 02/13/24 21:06 Hct 43.5 % (37-53) 02/13/24 21:06 MCV 106.1 fl (82-101) H 02/13/24 21:06 MCH 32.0 pg (27-33) 02/13/24 21:06 MCHC 30.1 g/dL (30-55) 02/13/24 21:06 RDW 12.6 % (12.1-15.1) 02/13/24 21:06 Sodium 143 mmol/L (136-145) 02/13/24 21:06 Potassium 3.4 mmol/L (3.5-5.1) L 02/13/24 21:06 Chloride 112 mmol/L (98-107) H 02/13/24 21:06 Carbon Dioxide 19 mmol/L (22-29) L 02/13/24 21:06 Anion Gap 15.4 (5-19) 02/13/24 21:06 BUN 15 mg/dL (6-20) 02/13/24 21:06 Creatinine 0.2 mg/dL (0.7-1.2) L 02/13/24 21:06 GFR Calculation 566.0 mL/min (90-130) H 02/13/24 21:06 Last dialysis session:: N/A Drug administration history:: Medications Vancomycin HCl 1,000 mg/ (Sodium Chloride) 250 mls @ 250 mls/hr IV ONCE ONE Stop: 02/14/24 18:29 Last Admin: 02/14/24 17:37 Dose: 250 mls/hr Piperacillin Sod/Tazobactam (Sod 3.375 gm/ Sodium Chloride) 50 mls @ 12.5 mls/hr IV Q8H MATILDE; Protocol Last Admin: 02/14/24 14:01 Dose: 12.5 mls/hr Vancomycin HCl 750 mg/ Sodium (Chloride) 250 mls @ 250 mls/hr IV Q8H MATILDE Treatment plan:: new consult Regimen:: 1000MG LOADING DOSE 750MG IVPB Q8H Follow up:: Pharmacy to monitor daily. SCr daily with AM labs
--- NOTE | 2024-02-14 18:17 | PC.NURSE ---
pulled morphine mother was concerned that he was hurting abdomen, when took it in to administer mother concerned it was morphine and didnt want it given wasted with Sujit Brooks Rn
--- NOTE | 2024-02-14 18:22 | PC.NURSE ---
mother not give brivact due at 1800 until 1999 stated need to wait
[2024-02-14] MEDS: divalproex Sprinkles 125 mg Capsule 875 MG PO (21:00)
--- NOTE | 2024-02-14 23:11 | PC.NURSE ---
Low BP: Called Dr. Hernandez @[phone] to notify of low BP. New order for 500ml NS Bolus ONCE NOW.
[2024-02-15] VITALS (50 sets, daily range): BP systolic 87–119; BP diastolic 57–77; PULSE 68–98; RESP 13–25; TEMP 35.8–37.6; O2SAT 93–99
[2024-02-15] MEDS: vancomycin 750 MG in sodium chloride 0.9% 250 ML 250 MG IV ×3 (02:39→17:39)
[2024-02-15 03:02] LABS: Amphetamines Screen Urine Negative (Negative); Barbiturates Screen Urine Negative (Negative); Benzodiazepines Screen Urine Positive (Negative); Cocaine Screen Urine Negative (Negative); Opiate Screen Urine Negative (Negative); PCP Screen Urine Negative (Negative); THC Screen Urine Positive (Negative)
[2024-02-15] MEDS: dextrose 5%-sod chloride 0.9% 1,000 ML 100 ML IV (03:05)
[2024-02-15] MEDS: enoxaparin 40 mg/0.4 mL Syringe SUBCUT (04:50)
[2024-02-15] MEDS: famotidine 20 mg/2 mL INJ IVP ×2 (04:50→17:39)
[2024-02-15] MEDS: piperacillin-tazobactam 3.375 GM in sodium chloride 0.9% (plus) 50 ML IV ×2 (05:53→16:29)
[2024-02-15 06:04] LABS: Basophils % 0.7 %; Eosinophils % 0.2 %; Hematocrit 39.8 % (37-53); Lymphocytes # 0.6 10^3/uL (0.8-4.8); Lymphocytes % 11.5 %; Mean Corpuscular HGB Conc 30.7 g/dL (30-55); Mean Corpuscular Hemoglobin 32.6 pg (27-33); Mean Corpuscular Volume 106.4 fl (82-101); Mean Platelet Volume 10.1 fL (7.4-10.4); Monocytes # 0.7 10^3/uL (0.2-0.9); Monocytes % 13.2 %; Neutrophils # 4.04 10^3/uL (1.8-7.7); Nucleated Red Blood Cells % 0 %; Platelet Count 95 10^3/cmm (157-399); Red Blood Count 3.74 10^6/uL (3.85-5.65); Red Cell Distribution Width 13.2 % (12.1-15.1); White Blood Count 5.46 10^3/uL (3.29-11.43)
[2024-02-15] MEDS: divalproex Sprinkles 125 mg Capsule 750 MG PO (08:59)
[2024-02-15] MEDS: BRIVIACT 50 MG 3 EACH PO ×2 (09:00→20:08)
[2024-02-15] MEDS: levothyroxine 50 mcg Tablet PO (09:00)
--- NOTE | 2024-02-15 09:55 | PC.SOCIAL ---
IMM Update pg 2 of IMM Updated and reviewed w/ patients brotherAntione. Copy left @ bedside and copy dated, initialed and placed in chart.
[2024-02-15 10:39] LABS: Alanine Aminotransferase 52 U/L (0-41); Albumin Level 2.8 g/dL (3.5-5.2); Alkaline Phosphatase 63 U/L (40-130); Anion Gap 8.8 (5-19); Aspartate Amino Transferase 17 U/L (0-40); Blood Urea Nitrogen 7 mg/dL (6-20); Calcium 7.5 mg/dL (8.5-10.5); Carbon Dioxide 24 mmol/L (22-29); Chloride 111 mmol/L (98-107); Creatinine Clr Calc Pharmacy 403.8396; Glucose 130 mg/dL (65-115); Lipase 29 U/L (13-60); Osmolality Calculated 292 mOsm/kg (285-295); Sodium 141 mmol/L (136-145); Total Bilirubin 0.2 mg/dL (0.15-1.2); Total Protein 4.8 g/dL (6.6-8.7)
[2024-02-15 10:50] LABS: Potassium 2.8 mmol/L (3.5-5.1)
[2024-02-15] MEDS: potassium chloride ER 20 mEq Tablet 40 MEQ PO ×2 (11:21→18:37)
[2024-02-15 14:15] LABS: Blood Urea Nitrogen 5 mg/dL (6-20); Calcium 7.6 mg/dL (8.5-10.5); Carbon Dioxide 23 mmol/L (22-29); Chloride 107 mmol/L (98-107); Creatinine Clr Calc Pharmacy 403.8396; Glucose 134 mg/dL (65-115); Osmolality Calculated 281 mOsm/kg (285-295); Sodium 136 mmol/L (136-145)
[2024-02-15 14:16] LABS: Anion Gap 9.1 (5-19); Potassium 3.1 mmol/L (3.5-5.1)
[2024-02-15] MEDS: [UNRECOGNIZED DRUG - OTHER] 5 EACH PO (16:29)
--- NOTE | 2024-02-15 16:51 | PM.PN ---
Subjective Subjective: Patient was seen this morning, he is sitting up to the side of the bed without help of patient's family he is alert to person, to place, not to time he is smiling at me, he has no complaints, no diarrhea overnight, he is able to take an oral diet, no abdominal pain complaints, no neck pain, neck stiffness, we discussed that with family that he was febrile yesterday, currently afebrile, his ultrasound of his gallbladder is within normal limits, his lipase has trended downwards, potentially his elevated lipase could be from the Depakote, will continue to monitor, in terms of his fevers, I cannot find a good source, will follow his blood cultures, he has a history of Staph epidermidis bacteremia without a clear etiology, in the past, will continue to monitor his blood cultures, continue IV antibiotics, as long as he is afebrile for 48 hours his blood cultures are Kalir we can possibly discharge him tomorrow, overnight no breakthrough seizures. Spoke to patient's neurologist in [facility], discussed possibly lipase elevation could be from Depakote, but as it has rapidly returned back to normal and he symptomatology is returned back to normal we will keep patient on Depakote for now, and monitor, potentially monitor lipase as outpatient if this continues to recur can certainly consider taking him off Depakote but will have him follow-up with Dr. Faith Alexander as outpatient Vitals/I&O/Wt Last Vital Signs Temp 96.4 F L 02/15/24 08:00 Pulse 74 02/15/24 14:00 Resp 15 02/15/24 14:00 BP 107/60 02/15/24 14:00 Pulse Ox 96 02/15/24 14:00 O2 Del Method Room Air 02/15/24 14:00 02/15/24 02/15/24 02/15/24 06:59 14:59 22:59 Intake Total 1326.667 / 3730.000 50 / 50 250 / 300 Balance 1326.667 / 3730.000 50 / 50 250 / 300 Weight last 48 hrs Weight 52.39 kg Weight 52.39 kg Physical Exam Const: COMMON NORMALS: no acute distress ORIENTATION/CONSCIOUSNESS: Yes awake, Yes oriented to person and Yes oriented to place; not oriented to time Resp: COMMON NORMALS: normal respiratory effort, No retractions, No use of accessory muscles and clear to auscultation bilaterally AUSCULTATION: clear to auscultation bilaterally Cardio: COMMON NORMALS: regular rate, regular rhythm, S1 normal heart sound present and S2 normal heart sound present RATE: regular rate RHYTHM: regular rhythm HEART SOUNDS: S1 normal heart sound present and S2 normal heart sound present GI: COMMON NORMALS: Normal to inspection, nondistended, normoactive bowel sounds present and non-tender Extremity: COMMON NORMALS: no calf tenderness and no pedal edema Neuro: SENSORIUM/ORIENTATION: Yes oriented to person, Yes oriented to place and No oriented to time Psych: COMMON NORMALS: mental status grossly normal Data 02/15/24 05:15 02/15/24 13:53 Micro: Microbiology 02/14/24 09:25 Blood Culture - Preliminary Blood NEGATIVE TO DATE 02/14/24 09:28 Blood Culture - Preliminary Blood NEGATIVE TO DATE A&P Assessment and plan (1) Gastroenteritis: (2) Ileus: (3) Breakthrough seizure: (4) Pancreatitis: (5) Leukocytosis: (6) Hypocalcemia: Plan 28-year-old male with comorbidities as listed above presenting to the emergency room today with complaints of abdominal pain and persistent diarrhea. Noted to have 2 breakthrough seizures in the emergency room, however his mom states that this frequency is not unusual for him. Abdominal pain, diarrhea, febrile up to 1-1.2 -GGT 96, AST 116, ALT 116, lipase 1180 -CT of the abdomen and pelvis today showing diffuse gaseous and fluid distended loops of small and large bowel with no transition point or evidence of obstruction -Gallbladder ultrasound no acute findings -On examination has no significant abdominal tenderness. -Now lipase back to normal, -Possibly Depakote related? Plan -concern for pancreatitis -As lipase returned back to normal he is clinically improving, diarrhea has resolved we will advance his to a GI soft diet -As he was febrile continue broad-spectrum antibacterial vancomycin, Zosyn until blood cultures are negative -Has a history of Staph epidermidis bacteremia, etiology uncertain -Follow blood cultures -C. difficile taken and pending, does have a history of the same. -As needed Zofran for nausea, he has not yet vomited. Noted to have 2 breakthrough seizures in the emergency room, his mother states that breakthrough seizure frequency is not unusual for him. She would like as much as possible to be able to manage his seizure medications while in the hospital. Has a history of breakthrough seizures, difficult to control, has been on multiple seizure medications in the past, mother tells me that they have exhausted all medical treatments/medicine for his seizures, despite this, he continues to have breakthrough seizures, managed by an epilepsy center in [facility]. Valproate level is currently noted to be adequate. Continue divalproex sprinkles at home dosing , continue Briviact, continue Banzel at home dosing. Mother would like to use intranasal Ativan and rectal Ativan as much as possible. Discussed with her that should patient have a persistent seizure, we would need to intervene and likely use IV Ativan to stop the seizure. He may additionally require further IV medications should he go into status epilepticus. -Mother prefers giving medications at bedside, she tells me that she is very involved in her son's care and she is always given his medications, as she notes in the past, -I discussed the morbidity and mortality associated with mixing up his home medications with medications that are given in the hospital, risks of medication overdose, morbidity and mortality associated, risk of duplication, risk of recording error, these are controlled substances, morbidity and mortality discussed, she voiced understanding, all questions answered -I had a detailed discussion with the patient's mother, nursing staff at bedside, if she notices a breakthrough seizure, she may administer his home intranasal Diazepam, versed prn. As scheduled banzel, briviact, depakote -But as these are controlled substances, she will have to notify nursing staff about when she gives these medications, we will record when these medications are given, the dose that was given, and they are to be kept and a locked box in the room -She should keep all nursing staff up-to-date on the medications that she is giving her son here in the hospital as we need to know -She voiced understanding, all questions answered In the interim monitor closely in the ICU for any worsening in seizure frequency/development of status epilepticus. Current seizure episodes manifesting as sudden jerking and flexion movements at upper and lower extremities lasting a few seconds at a time. DVT prophylaxis: Lovenox 40 Full code Attestations Medical Necessity Statement*: Patient requires hospitalization for pancreatitis, elevated lipase, fevers, breakthrough seizures Diagnoses Gastroenteritis K52.9 Ileus K56.7 Breakthrough seizure G40.919 Pancreatitis K85.90 Leukocytosis D72.829 Hypocalcemia E83.51
--- NOTE | 2024-02-15 18:44 | PC.NURSE ---
Shift SUmmary: Uneventful shift. Patient rested in bed for most of the day, near the end of the day he was frequently up to a chair. Started on GI soft Diet, tolerating well. No PRN seizure medications were needed. During shift change report, the family informed the nursing staff that while nurses were not in the room he had multiple seizures throughout the day, but they lasted only for seconds at a time, and resolved on their own without any intervention. Family states that the frequency and duration is more closely resembling his home baseline, but still not there.
[2024-02-15] MEDS: [UNRECOGNIZED DRUG - OTHER] 7 EACH PO (20:57)
--- NOTE | 2024-02-15 23:14 | PC.NURSE ---
Zosyn: Zosyn stopped on arrival to shift, MAR edited for 1900 to reflect this. Zosyn resumed post vanocmycin infusion. Tel[facility]arm[facility] called to request zosyn schedule adjustment.
[2024-02-16] VITALS (29 sets, daily range): BP systolic 80–110; BP diastolic 54–84; PULSE 66–102; RESP 12–33; TEMP 35.8–36.8; O2SAT 91–100
[2024-02-16 02:21] LABS: Basophils % 0.4 %; Eosinophils % 0.2 %; Lymphocytes % 18.4 %; Mean Corpuscular HGB Conc 32.7 g/dL (30-55); Mean Corpuscular Hemoglobin 32.1 pg (27-33); Mean Corpuscular Volume 98.1 fl (82-101); Mean Platelet Volume 8.3 fL (7.4-10.4); Monocytes # 0.8 10^3/uL (0.2-0.9); Monocytes % 15.2 %; Neutrophils # 3.51 10^3/uL (1.8-7.7); Neutrophils % 65.6 %; Nucleated Red Blood Cells % 0 %; Platelet Count 239 10^3/cmm (157-399); Red Blood Count 3.77 10^6/uL (3.85-5.65); White Blood Count 5.34 10^3/uL (3.29-11.43)
[2024-02-16 02:55] LABS: Lipase 53 U/L (13-60); Vancomycin Trough 6.5 ug/mL (10-15)
[2024-02-16 02:56] LABS: Alanine Aminotransferase 43 U/L (0-41); Alkaline Phosphatase 65 U/L (40-130); Anion Gap 10.9 (5-19); Aspartate Amino Transferase 15 U/L (0-40); Blood Urea Nitrogen 4 mg/dL (6-20); Calcium 7.9 mg/dL (8.5-10.5); Carbon Dioxide 26 mmol/L (22-29); Chloride 104 mmol/L (98-107); Creatinine Clr Calc Pharmacy 269.2264; Glomerular Filtration Rate 354.5 mL/min (90-130); Glucose 103 mg/dL (65-115); Osmolality Calculated 281 mOsm/kg (285-295); Potassium 3.9 mmol/L (3.5-5.1); Sodium 137 mmol/L (136-145); Total Bilirubin 0.2 mg/dL (0.15-1.2)
[2024-02-16] MEDS: vancomycin 1,000 MG in sodium chloride 0.9% 250 ML 250 MG IV (03:31)
[2024-02-16] MEDS: famotidine 20 mg/2 mL INJ IVP (05:18)
[2024-02-16] MEDS: enoxaparin 40 mg/0.4 mL Syringe SUBCUT (05:18)
[2024-02-16] MEDS: piperacillin-tazobactam 3.375 GM in sodium chloride 0.9% (plus) 50 ML IV (06:23)
[2024-02-16] MEDS: [UNRECOGNIZED DRUG - OTHER] 6 EACH PO (08:34)
[2024-02-16] MEDS: BRIVIACT 50 MG 3 EACH PO (08:35)
--- NOTE | 2024-02-16 11:37 | P.DS_ITS ---
Discharge Providers Date of Admission: 02/13/24 23:31 Date of Discharge: February 16, 2024 Attending Provider at Admission: Monserrat Hernandez MD Attending Provider at Discharge: Rancho Welch MD Primary Care Provider: Jon Grider DO Diagnoses at Discharge Discharge Diagnosis (1) Gastroenteritis: Status: Acute (2) Ileus: Status: Acute (3) Breakthrough seizure: Status: Acute (4) Pancreatitis: Status: Acute (5) Leukocytosis: Status: Acute (6) Hypocalcemia: Status: Acute Reason for Visit Reason for Visit: n/v/d Hospital Course Hospital Course This is a 28-year-old male, with a past medical history of AL L, intellectual disability, recurrent and persistent seizures, with breakthrough seizures, who presents [facility] due to diarrhea, abdominal discomfort For patient is diarrhea, abdominal discomfort, he has a history of chronic diarrhea, his neurologist is aware of this, potentially related to his seizure medications, his diarrhea has resolved during his hospitalization, concerns for C. difficile, C. difficile was negative, diarrhea has significantly improved. Patient is lipase is over thousand, I suspect his abdominal discomfort is possibly secondary to mild pancreatitis, elevated lipase, which possibly could be from his Depakote. His abdominal ultrasound was within normal limits, his transaminitis and his lipase resolved with 24 hours of bowel rest. I did discuss with his neurologist in [place], recommended as patient's lipase has resolved quickly, symptomatology is improved quickly we will have him follow-up with neurology as outpatient. Continue his Depakote for now, if he continues to have recurred lipase elevations, and these recurrent episodes then they might take him off his Depakote. Of note patient had a similar hospitalization a few years ago similarly he had complaints of diarrhea and abdominal discomfort, his lipase was over thousand then also, it quickly resolved. Nonetheless family was advised to continue to monitor for recurrent symptomatology if so come back to the hospital. Patient was monitored for 48 hours here in the hospital as he had low-grade fevers, urinalysis within normal limits, respiratory viral panel within normal limits, chest x-ray within normal limits, CT abdomen and pelvis showed diffuse gaseous and fluid distended loops of small bowel large bowel with no transition point or evidence obstruction, not requiring oxygen, has remained afebrile for 48 hours, blood cultures no growth so far, I managed patient initially with 48 hours of broad-spectrum IV antibiotics. No neck stiffness, no neck pain, Kernig and Brudzinski sign negative, no sudden change in his mentation, his mentation is back to baseline as per family members. He has a history of Staph epidermidis bacteremia a few years ago, suspected to be contamination, and his repeat blood cultures were negative thereafter. But he does have a vagal stimulator in place, this certainly could be a source of infection although currently I feel unlikely, as his blood cultures were remain unremarkable. But if he does have recurrent bacteremia the future, this certainly could be a source. Head CT no acute findings. His inflammatory markers are within normal limits, continue to monitor mentation as outpatient if there is changes in his mentation he should come back to [facility] for further evaluation. Physical Exam Const: COMMON NORMALS: no acute distress ORIENTATION/CONSCIOUSNESS: Yes awake, Yes oriented to person and Yes oriented to place; not oriented to time OTHER: Smiling, active, Neck/C-Spine: COMMON NORMALS: no JVD Resp: COMMON NORMALS: normal respiratory effort, No retractions, No use of accessory muscles and clear to auscultation bilaterally AUSCULTATION: clear to auscultation bilaterally Cardio: COMMON NORMALS: no JVD, regular rate, regular rhythm, S1 normal heart sound present and S2 normal heart sound present RATE: regular rate RHYTHM: regular rhythm HEART SOUNDS: S1 normal heart sound present and S2 normal heart sound present GI: COMMON NORMALS: Normal to inspection, nondistended, normoactive bowel sounds present and non-tender Extremity: COMMON NORMALS: no pedal edema Neuro: SENSORIUM/ORIENTATION: Yes oriented to person, Yes oriented to place and No oriented to time Psych: COMMON NORMALS: mental status grossly normal Discharge Data Studies Completed and Pending Completed Studies During Hospitalization Category Date Time Status CT abdomen pelvis w con* [id number] Stat Cat Scan 02/13/24 19:[address] head wo con* [id number] Stat Cat Scan 02/13/24 19:44 Completed XR chest 1V portable [id number] Routine Exams 02/14/24 09:38 Completed US gall bladder [id number] Routine Ultrasound 02/14/24 08:35 Completed Pending at discharge Category Date Time Status Amylase Routine Lab 02/15/24 09:28 Received Blood Culture Stat Lab 02/14/24 09:25 Results C.Diff PCR (Lab) Routine Lab 02/16/24 08:20 Uncollected Complete Blood Count w/Auto AM LABS Lab 02/17/24 04:00 Ordered Complete Blood Count w/Auto AM LABS Lab 02/18/24 04:00 Ordered Comprehensive Metabolic Panel AM LABS Lab 02/17/24 04:00 Ordered Comprehensive Metabolic Panel AM LABS Lab 02/18/24 04:00 Ordered Immunochemical Fecal OCB Routine Lab 02/16/24 08:20 Uncollected Lactoferrin Routine Lab 02/16/24 08:20 Uncollected OVA and Parasites, Conc and PE Routine Lab 02/16/24 08:20 Uncollected Salmonella / Shigella / Campy Routine Lab 02/16/24 08:20 Uncollected Radiology Impressions Abdomen/Pelvis CT 02/13/24 19:22 IMPRESSION: Diffuse gaseous and fluid distended loops of small and large bowel with no transition point or evidence of obstruction. Head CT 02/13/24 19:44 IMPRESSION: Negative for intracranial hemorrhage or mass effect Gallbladder Ultrasound 02/14/24 08:35 IMPRESSION: No acute sonographic findings in the visualized abdomen. Chest X-Ray 02/14/24 09:38 IMPRESSION: No acute cardiopulmonary findings. Laboratory Results WBC 5.34 10^3/uL (3.29-11.43) 02/16/24 02:11 RBC 3.77 10^6/uL (3.85-5.65) L 02/16/24 02:11 Hgb 12.10 g/dL (11.27-16.99) 02/16/24 02:11 Hct 37.0 % (37-53) 02/16/24 02:11 MCV 98.1 fl (82-101) D 02/16/24 02:11 MCH 32.1 pg (27-33) 02/16/24 02:11 MCHC 32.7 g/dL (30-55) D 02/16/24 02:11 RDW 13.0 % (12.1-15.1) 02/16/24 02:11 Plt Count 239 10^3/cmm (157-399) D 02/16/24 02:11 MPV 8.3 fL (7.4-10.4) 02/16/24 02:11 Neut % (Auto) 65.6 % 02/16/24 02:11 Lymph % (Auto) 18.4 % 02/16/24 02:11 [place] % (Auto) 15.2 % 02/16/24 02:11 Eos % (Auto) 0.2 % 02/16/24 02:11 Baso % (Auto) 0.4 % 02/16/24 02:11 Neut # (Auto) 3.51 10^3/uL (1.8-7.7) 02/16/24 02:11 Lymph # (Auto) 1.0 10^3/uL (0.8-4.8) 02/16/24 02:11 [place] # (Auto) 0.8 10^3/uL (0.2-0.9) 02/16/24 02:11 Eos # (Auto) 0.0 10^3/uL (0.0-0.8) 02/16/24 02:11 Baso # (Auto) 0.0 10^3/uL (0.0-0.1) 02/16/24 02:11 Nucleated RBC % (auto) 0 % 02/16/24 02:11 Nucleated RBCs # 0.0 /100WBC 02/16/24 02:11 Sodium 137 mmol/L (136-145) 02/16/24 02:11 Potassium 3.9 mmol/L (3.5-5.1) 02/16/24 02:11 Chloride 104 mmol/L (98-107) 02/16/24 02:11 Carbon Dioxide 26 mmol/L (22-29) 02/16/24 02:11 Anion Gap 10.9 (5-19) 02/16/24 02:11 BUN 4 mg/dL (6-20) L 02/16/24 02:11 Creatinine 0.3 mg/dL (0.7-1.2) L 02/16/24 02:11 GFR Calculation 354.5 mL/min (90-130) H 02/16/24 02:11 Glucose 103 mg/dL (65-115) 02/16/24 02:11 Estimat Average Glucose 88 02/14/24 09:28 Hemoglobin A1c 4.7 % (4.0-6.0) 02/14/24 09:28 Calculated Osmolality 281 mOsm/kg (285-295) L 02/16/24 02:11 Lactic Acid 1.7 mmol/L (0.5-2.2) 02/13/24 21:06 Calcium 7.9 mg/dL (8.5-10.5) L 02/16/24 02:11 Ionized Calcium Jose Alejandro 1.1 mmol/L (1.1-1.4) 02/14/24 09:21 Ferritin 80 ng/mL (30-400) 02/14/24 09:28 Total Bilirubin 0.2 mg/dL (0.15-1.2) 02/16/24 02:11 GGT 96 U/L (8-61) H 02/14/24 09:21 AST 15 U/L (0-40) 02/16/24 02:11 ALT 43 U/L (0-41) H 02/16/24 02:11 Alkaline Phosphatase 65 U/L (40-130) 02/16/24 02:11 C-Reactive Protein 37.0 mg/L (0.0-4.9) H 02/14/24 09:28 Total Protein 5.0 g/dL (6.6-8.7) L 02/16/24 02:11 Albumin 3.0 g/dL (3.5-5.2) L 02/16/24 02:11 Globulin 2.0 g/dL (1.3-4.6) 02/16/24 02:11 Triglycerides 76 mg/dL (0-150) 02/14/24 09:28 Cholesterol 111 mg/dL (0-200) 02/14/24 09:28 LDL Cholesterol, Calc 50 mg/dL (50-129) 02/14/24 09:28 HDL Cholesterol 46 mg/dL (60-100) L 02/14/24 09:28 LDL/HDL Ratio 1.09 RATIO (0.00-3.22) 02/14/24 09:28 Cholesterol/HDL Ratio 2.41 mg/dL (1.0-5.00) 02/14/24 09:28 Lipase 53 U/L (13-60) 02/16/24 02:11 25-OH Vitamin D Total 41 ng/mL (30-100) 02/14/24 09:21 Procalcitonin 0.26 ng/mL (0-0.5) 02/14/24 09:28 PTH Intact 36.1 pg/mL (15-65) 02/14/24 09:28 Calcium (PTH Intact) 8.2 mg/dL (8.5-10.5) L 02/14/24 09:28 Urine Color [place] (Yellow) A 02/13/24 21:41 Urine Appearance Clear (CLEAR) 02/13/24 21:41 Urine pH 6.5 (5-7) 02/13/24 21:41 Ur Specific [place] 1.028 (1.005-1.030) 02/13/24 21:41 Urine Protein Negative (Negative) 02/13/24 21:41 Urine Glucose (UA) Negative (Normal) 02/13/24 21:41 Urine Ketones Trace (Negative) 02/13/24 21:41 Urine Blood Negative (Negative) 02/13/24 21:41 Urine Nitrate Negative (Negative) 02/13/24 21:41 Urine Bilirubin Negative (Negative) 02/13/24 21:41 Urine Urobilinogen 1.0 mg/dL (Negative) 02/13/24 21:41 Ur Leukocyte Esterase Negative (Negative) 02/13/24 21:41 Urine RBC 0-2 /hpf (0-2) 02/13/24 21:41 Urine WBC 0-5 /hpf (0-5) 02/13/24 21:41 Ur Squamous Epith Cells 0-5 /hpf (0-5) 02/13/24 21:41 Amorphous Sediment Not Reportable 02/13/24 21:41 Urine Bacteria None seen /hpf (NONE) 02/13/24 21:41 Hyaline Casts 1.21 /lpf 02/13/24 21:41 Vancomycin Trough 6.5 ug/mL (10-15) L 02/16/24 02:11 Salicylates < 0.3 mg/dL (3-10) L 02/14/24 09:28 Urine Opiates Screen Negative ng/mL (Negative) 02/15/24 02:45 Acetaminophen < 5.0 ug/mL (10-30) L 02/14/24 09:28 Ur Barbiturates Screen Negative ng/mL (Negative) 02/15/24 02:45 Valproic Acid 66.7 ug/mL (50-100) 02/13/24 21:06 Ur Phencyclidine Scrn Negative ng/mL (Negative) 02/15/24 02:45 Ur Amphetamines Screen Negative ng/mL (Negative) 02/15/24 02:45 U Benzodiazepines Scrn Positive ng/mL (Negative) H 02/15/24 02:45 Urine Cocaine Screen Negative ng/mL (Negative) 02/15/24 02:45 U Marijuana (THC) Screen Positive ng/mL (Negative) H 02/15/24 02:45 Ethyl Alcohol < 10 mg/dL (0-10) 02/14/24 09:28 Adenovirus (PCR) Not detected (NOT DETECT) 02/14/24 08:05 C. pneumoniae DNA (PCR) Not detected (NOT DETECT) 02/14/24 08:05 C. difficile (PCR) Negative (Negative) 02/14/24 01:50 Coronavirus 229E (PCR) Not detected (NOT DETECT) 02/14/24 08:05 Hepatitis A IgM Ab Non-reactive (Nonreactive) 02/14/24 09:28 Hep Bs Antigen Non-reactive (Nonreactive) 02/14/24 09:28 Hep Bs Antibody < 3.5 (11.5-1000) L 02/13/24 21:06 Hep B Core Total Ab Non-reactive (Nonreactive) 02/13/24 21:06 Hep B Core IgM Ab Non-reactive (Nonreactive) 02/14/24 09:28 Hepatitis C Antibody Non-reactive (Nonreactive) 02/14/24 09:28 HIV 1&2 Ab & HIV 1 Ag Non-reactive (Non-Reactiv) 02/14/24 09:28 HIV 1&2 Antibody Non-reactive (Non-Reactiv) 02/14/24 09:28 Human Metapneumovir PCR Not detected (NOT DETECT) 02/14/24 08:05 Influenza A (H1) PCR Not detected (NOT DETECT) 02/14/24 08:05 Influ A (H1/09) PCR Not detected (NOT DETECT) 02/14/24 08:05 Influenza A (H3) PCR Not detected (NOT DETECT) 02/14/24 08:05 Influenza Type A (PCR) Not detected (NOT DETECT) 02/14/24 08:05 Influenza Type B (PCR) Not detected (NOT DETECT) 02/14/24 08:05 M. pneumoniae (PCR) Not detected (NOT DETECT) 02/14/24 08:05 Parainfluenza 1 (PCR) Not detected (NOT DETECT) 02/14/24 08:05 Parainfluenza 2 (PCR) Not detected (NOT DETECT) 02/14/24 08:05 Parainfluenza 3 (PCR) Not detected (NOT DETECT) 02/14/24 08:05 Parainfluenza 4 (PCR) Not detected (NOT DETECT) 02/14/24 08:05 RSV Type A (PCR) Not detected (NOT DETECT) 02/14/24 08:05 RSV Type B (PCR) Not detected (NOT DETECT) 02/14/24 08:05 Entero/Rhino (PCR) Not detected (NOT DETECT) 02/14/24 08:05 SARS-CoV-2 (PCR) Not detected (NOT DETECT) 02/14/24 08:05 Vitals Last Vital Signs Temp 96.5 F L 02/16/24 07:30 Pulse 75 02/16/24 11:00 Resp 15 02/16/24 11:00 BP 95/61 02/16/24 11:00 Pulse Ox 95 02/16/24 11:00 O2 Del Method Room Air 02/16/24 11:00 Discharge Plan Discharge Patient Disposition: Home Condition: Fair Prescriptions: Continued Banzel 400 mg tablet 1,200 mg PO BID Rx Instructions: give with meal/snack divalproex [Depakote Sprinkles] 125 mg capsule, delayed rel sprinkle See Rx Instructions .ROUTE .COMPLEX Rx Instructions: 750 mg po in the morning, 625 mg po in the afternoon, 750 mg po in the evening diazepam 10 mg tablet 10 mg PO BID PRN (Reason: Anxiety) levothyroxine [Synthroid] 50 mcg tablet 50 mcg PO DAILY Briviact 25 mg tablet 75 mg PO BID Nayzilam 5 mg/spray (0.1 mL) Dayhoit,Non-Aerosol 1 spray INTRANASAL PRN PRN (Reason: Seizures) Rx Instructions: USE 1 SPRAY IN EACH NOSTRIL NEEDED FOR INCREASED SEIZURES diazepam 12.5-15-17.5-20 mg kit See Rx Instructions .ROUTE .COMPLEX Rx Instructions: inject 20mg rectally NEEDED FOR seizure more THAN THREE minutes or seizure cluster Discharge Orders: Discharge Order (Routine); Ordered 02/16/24 Ordered By: Rancho Welch Referrals: Jon Grider DO [Primary Care Provider] - 4-7 days Discharge Diet: Regular Discharge Activity: Resume usual activity Patient Instructions: Opioid Safety Activity Restrictions/Additional Instructions: - Please follow-up with neurologist -Please monitor for diarrhea -Please hydrate well Discharge Attestations Time Spent in Discharge Care*: greater than 30 min Status at Discharge: Cognitive status at discharge: severely impaired cognition , Behavioral status at discharge: cooperative , Quality Metrics Clinical Quality Measures [ No reported AMI, CVA or VTE this stay] Coding Level of Care Code 82850 Total time (in minutes) for Discharge: 45 Diagnoses Gastroenteritis K52.9 Ileus K56.7 Breakthrough seizure G40.919 Pancreatitis K85.90 Leukocytosis D72.829 Hypocalcemia E83.51
[2024-02-16 13:13] LABS: Amylase 24 U/L (21-101)
--- NOTE | 2024-02-16 13:23 | PC.NURSE ---
patient discharged. Discussed upcoming appointment with PCP with mother. Continue current medication regimen, neurologist to adjust. Increase activity and diet as tolerated. Send home with clothing, tablet PC, and home meds (nasal versed, rectal versed, levothyroxine, briviact, Banzel, and depakote) Patricia florian RN and Marcus Page RN counted home medications in front of Patient's mother/caregiver. Counts are accurate, equal to originally recorded quantities minus doses administered during stay. Controlled substance long signed by 2 nurses in physical chart.
== END 2024-02-16 13:00 | disposition home or self-care (01) | DRG 439 ==
LOC: ER 21:30 → ICU 23:51
PROVIDERS: Admitting Provider Student in an Organized Health Care Education/Training Program; Emergency Provider Emergency Medicine; PCP Internal Medicine; Visit Provider Family Medicine
DX: K85.90 Acute pancreatitis without necrosis or infection, unspecified (principal); C91.00 Acute lymphoblastic leukemia not having achieved remission; G40.919 Epilepsy, unspecified, intractable, without status epilepticus; K56.7 Ileus, unspecified; F79 Unspecified intellectual disabilities; E03.9 Hypothyroidism, unspecified; K52.9 Noninfective gastroenteritis and colitis, unspecified; E83.51 Hypocalcemia; Z96.82 Presence of neurostimulator
CPT/HCPCS: 36415; 70450; 71045; 74177; 76705; 80048; 80053; 80061; 80074; 80164; 80202; 80306; 80307; 81001; 82150; 82306; 82310; 82330; 82728; 82977; 83036; 83605; 83690; 83970; 84145; 85025; 86140; 86705; 86706; 86709; 86803; 87040; 87340; 87486; 87493; 87581; 87633; 87806; 96372; 96376; 99285; J0612; J1650; J2543; J3370; J3490; J7030; J7040; J7042; J7050

== ENCOUNTER 2025-03-22 11:01 | Outpatient (CLI) | payer MEDICARE, MEDICAID, SELFPAY ==
--- NOTE | 2025-03-22 11:09 | USCV_ITS ---
Rm Baum Age: 30 Gender: M : 1995 Exam Date: 03/22/2025 11:37 Ordering Phys: Justine Quintana LINING LAYER LINING LAYER Technologist: Exam Location: [facility] [place] Indication: high risk meds R/o pulmonic hypertension BP: 120 / 70 HR: 84 Rhythm: Sinus Technical Quality: Adequate MEASUREMENTS (Male / Female) Normal Values 2D ECHO LV Diastolic Diameter PLAX 4.0 cm 4.2 - 5.9 / 3.9 - 5.3 cm IVS Diastolic Thickness 1.1 cm 0.6 - 1.0 / 0.6 - 0.9 cm IVS Systolic Thickness 1.2 cm LVPW Diastolic Thickness 1.3 cm 0.6 - 1.0 / 0.6 - 0.9 cm LVPW Systolic Thickness 1.6 cm LVOT Diameter 2.0 cm LV Ejection Fraction 2D Teich 51.7 % LV Ejection Fraction MOD 4C 67.7 % LV Ejection Fraction MOD 2C 63.8 % LV Ejection Fraction 2C AL 64.5 % LA Diameter 2.6 cm RA Systolic Volume 4C AL 36.8 ml RA Systolic Volume 4C MOD 36.1 ml Aorta at Sinotubular Diameter 3.0 cm IVC Diameter 1.7 cm M-MODE LA Ao Ratio MM 1.0 AV Cusp Separation MM 2.1 cm DOPPLER AV Peak Velocity 97.0 cm/s LVOT Peak Velocity 80.0 cm/s AV Area Cont Eq vti 2.8 cm squared AV Area Cont Eq pk 2.6 cm squared MV Peak Velocity 64.0 cm/s MV Area PHT 4.9 cm squared Mitral E to A Ratio 1.4 TV Peak Velocity 193.0 cm/s TR Peak Velocity 203.0 cm/s TR Peak Gradient 16.5 mmHg TV Peak E Velocity 84.0 cm/s PV Peak Velocity 91.0 cm/s FINDINGS Left Ventricle Left ventricle is normal in size. LV systolic function is normal with EF 55-60%. No regional wall motion abnormalities are seen. Right Ventricle Normal in size and function Right Atrium Normal in size Left Atrium Normal in size IA Septum Grossly normal Mitral Valve Structurally normal mitral valve. Trace mitral regurgitation. Aortic Valve Structurally normal aortic valve. No significant stenosis or regurgitation Tricuspid Valve Trace tricuspid regurgitation. Insufficient TR jet to calculate RVSP Pulmonic Valve Not well visualized Pericardium Normal Aorta Normal in size IVC Appears to be normal CONCLUSIONS LV systolic function is normal with EF of 55-60% Trace mitral regurgitation. Trace tricuspid regurgitation. Stuart Wei MD (Electronically Signed) Final Date: 26 March 2025 10:50 S
== END 2025-03-22 11:02 | disposition home or self-care (01) ==
LOC: RAD 11:04
PROVIDERS: PCP Nurse Practitioner Family; Visit Provider Nurse Practitioner Family
DX: Z79.899 Other long term (current) drug therapy (principal); I27.21 Secondary pulmonary arterial hypertension; Z51.81 Encounter for therapeutic drug level monitoring; Z86.79 Personal history of other diseases of the circulatory system
CPT/HCPCS: 93306